=== PATIENT | female | born 1965 | race Caucasian/White ===

== ENCOUNTER 2017-08-23 08:56 | Day surgery (SDC) | payer MEDICARE, SELFPAY ==
[~2017-08-23 08:56] MED LIST: ADAL40PEN INJ; ALPR1 PO; ASPI325 PO; ATOR20 PO; CLOP75 PO; CONEST1.25; CYCL10; CYCL10 PO; EMBREL INJ; FAMO20 PO; FAMO40 PO; FOLI1 PO; FURO20 PO; HYDACE10B PO; HYDACE5 PO; HYDR1TAB94 PO; ISON300 PO; LEUC5 PO; LISI5 PO; LOSA50 PO; METTREX2.5 PO; Omeprazole20 M1 PO; POTCHL10ER PO; PRED5 PO; SULTRIDS PO; TRAZ50; TREXIMET
[2017-11-15] MEDS ORDERED: BENZ100A PO (12:45)
[2017-11-15] MEDS ORDERED: POTCHL20ER PO (12:45)
[2017-11-15] MEDS ORDERED: GABA800 PO (12:45)
[2017-11-15] MEDS ORDERED: PRED20 PO (12:45)
[2017-11-15] MEDS ORDERED: SACC250C PO (12:46)
[2017-11-15] MEDS ORDERED: OXYC5 PO (12:46)
[2017-11-15] MEDS ORDERED: ALBU90OI INH (12:47)
[2017-11-15] MEDS ORDERED: Augmentin 875-1 EACH PO (12:47)
[2018-04-30] MEDS ORDERED: METCAR500 PO (03:50)
[2018-05-01] MEDS ORDERED: Norco 10-325 T1 EACH PO (18:34)
[2018-05-01] MEDS ORDERED: METOPROLOL ER-1 EAC2 PO (19:07)
[2018-05-01] MEDS ORDERED: PRED5 PO (19:09)
[2018-05-01] MEDS ORDERED: Remicade100 MG IV (19:10)
[2018-05-01] MEDS ORDERED: CLON1 PO (19:10)
[2018-05-01] MEDS ORDERED: SERT100 PO (19:11)
== END 2017-08-23 22:53 | disposition home or self-care (01) ==
LOC: MHTC NI 08:56 → ORSCMMR 08:56 → MHTC 08:56 → ORSCMMR 08:57 → ORD 09:30 → CT 10:00 → MHTC NI 22:53 → ORD 22:53 → ORSCMMR 22:53
DX: R07.9 Chest pain, unspecified (principal); I25.10 Atherosclerotic heart disease of native coronary artery without angina pectoris; I25.9 Chronic ischemic heart disease, unspecified; E78.5 Hyperlipidemia, unspecified; K21.9 Gastro-esophageal reflux disease without esophagitis; I10 Essential (primary) hypertension; F17.210 Nicotine dependence, cigarettes, uncomplicated; Z79.899 Other long term (current) drug therapy; Z79.82 Long term (current) use of aspirin; Z79.01 Long term (current) use of anticoagulants; Z95.5 Presence of coronary angioplasty implant and graft; Z88.5 Allergy status to narcotic agent; Z88.1 Allergy status to other antibiotic agents; Z91.040 Latex allergy status; Z95.828 Presence of other vascular implants and grafts
CPT/HCPCS: 75574; Q9967

== ENCOUNTER 2017-09-27 01:03 | Day surgery (SDC) | payer MEDICARE, SELFPAY ==
[2017-09-27] MEDS ORDERED: Carvedilol12.5 MG PO (09:45)
[2017-11-15] MEDS ORDERED: BENZ100A PO (12:45)
[2017-11-15] MEDS ORDERED: PRED20 PO (12:45)
[2017-11-15] MEDS ORDERED: GABA800 PO (12:45)
[2017-11-15] MEDS ORDERED: POTCHL20ER PO (12:45)
[2017-11-15] MEDS ORDERED: OXYC5 PO (12:46)
[2017-11-15] MEDS ORDERED: SACC250C PO (12:46)
[2017-11-15] MEDS ORDERED: ALBU90OI INH (12:47)
[2017-11-15] MEDS ORDERED: Augmentin 875-1 EACH PO (12:47)
[2018-04-30] MEDS ORDERED: METCAR500 PO (03:50)
[2018-05-01] MEDS ORDERED: Norco 10-325 T1 EACH PO (18:34)
[2018-05-01] MEDS ORDERED: METOPROLOL ER-1 EAC2 PO (19:07)
[2018-05-01] MEDS ORDERED: PRED5 PO (19:09)
[2018-05-01] MEDS ORDERED: CLON1 PO (19:10)
[2018-05-01] MEDS ORDERED: Remicade100 MG IV (19:10)
[2018-05-01] MEDS ORDERED: SERT100 PO (19:11)
== END 2017-09-27 12:10 | disposition home or self-care (01) ==
LOC: ATC 01:03
DX: L40.50 Arthropathic psoriasis, unspecified (principal); Z88.5 Allergy status to narcotic agent
CPT/HCPCS: 96413; 96415; J7050; Q5102-ZB

== ENCOUNTER 2017-12-25 10:28 | Day surgery (SDC) | payer MEDICARE ==
[~2017-12-25 10:28] MED LIST changes: +ALBU90OI INH; +Augmentin 875-1 EACH PO; +BENZ100A PO; +Carvedilol12.5 MG PO; +GABA600 PO; +OXYC5 PO; +POTCHL20ER PO; +PRED20 PO; +SACC250C PO
== END 2017-12-25 16:40 | disposition home or self-care (01) ==
LOC: ATC 10:28
DX: L40.50 Arthropathic psoriasis, unspecified (principal); I10 Essential (primary) hypertension
CPT/HCPCS: 96413; 96415; J1745; J7050

== ENCOUNTER 2018-03-21 09:10 | Day surgery (SDC) | payer MEDICARE, OTHER | END 2018-03-21 17:06 | disposition home or self-care (01) | LOC: ATC 09:10 | DX: L40.50 Arthropathic psoriasis, unspecified (principal); M79.7 Fibromyalgia | CPT/HCPCS: J1642; J1745; J7050 ==

== ENCOUNTER 2018-05-08 00:22 | Day surgery (SDC) | payer MEDICARE, SELFPAY ==
[~2018-05-08 00:22] MED LIST changes: +CLON1 PO; -GABA600 PO; +GABA800 PO; +METCAR500 PO; +METOPROLOL ER-1 EAC2 PO; +Norco 10-325 T1 EACH PO; +Remicade100 MG IV; +SERT100 PO
[2018-05-08] MEDS ORDERED: IRON 100 PLUS1 EACH PO (15:17)
[2018-05-08] MEDS ORDERED: ASCO500 PO (15:18)
== END 2018-05-08 16:47 | disposition home or self-care (01) ==
LOC: ATC 00:22
DX: L40.50 Arthropathic psoriasis, unspecified (principal); M79.7 Fibromyalgia
CPT/HCPCS: 36593; 96413; 96415; J1642; J1745; J2997; J7050

== ENCOUNTER 2018-08-01 02:38 | Day surgery (SDC) | payer MEDICARE, SELFPAY ==
[~2018-08-01 02:38] MED LIST changes: +ASCO500 PO; +IRON 100 PLUS1 EACH PO
[2018-09-11] MEDS ORDERED: ATOR20 PO (14:14)
[2018-09-11] MEDS ORDERED: Coreg12.5 MG PO (14:15)
[2018-09-11] MEDS ORDERED: ASPI325EC PO (14:15)
[2018-09-11] MEDS ORDERED: LOSA50 PO (14:15)
[2018-09-11] MEDS ORDERED: Furosemide20 MG PO (14:15)
[2018-09-11] MEDS ORDERED: CLOP75 PO (14:15)
[2018-09-11] MEDS ORDERED: NITR.4SL SL (14:16)
[2018-09-11] MEDS ORDERED: FAMO40 PO (14:16)
[2018-09-11] MEDS ORDERED: POTA10T PO (14:16)
[2018-09-11] MEDS ORDERED: FOLI1 PO (14:17)
[2018-09-11] MEDS ORDERED: METTREX2.5 (14:17)
[2018-09-11] MEDS ORDERED: Remicade100 MG (14:17)
[2018-09-11] MEDS ORDERED: OMEPRAZOLE MAGN20 MG PO (14:17)
[2018-09-11] MEDS ORDERED: Norco 10-325 T1 EACH PO (14:18)
[2018-09-11] MEDS ORDERED: LEUC5 PO (14:18)
[2018-09-11] MEDS ORDERED: PRED5 PO (14:19)
[2018-09-11] MEDS ORDERED: PROM25 PO (14:19)
== END 2018-08-01 16:16 | disposition home or self-care (01) ==
LOC: ATC 02:38
DX: L40.50 Arthropathic psoriasis, unspecified (principal); Z88.5 Allergy status to narcotic agent
CPT/HCPCS: 96413; 96415; J1642; J1745; J7050

== ENCOUNTER 2018-08-14 06:59 | Emergency (ER) | payer MEDICARE, OTHER ==
[~2018-08-14] VITALS: Ht 160 cm; Wt 75.8 kg
[2018-08-14] MEDS ORDERED: PROM25 PO (07:20)
[2018-08-14 08:32] LABS: BASOPHILS ABSOLUTE AUTO 0.07 K/mm3 (0.00-0.23); BASOPHILS PERCENT AUTO 1 % (0-2); EOSINOPHILS ABSOLUTE AUTO 1.36 K/mm3 (0.00-0.68); EOSINOPHILS PERCENT AUTO 13 % (0-6); Hematocrit 37.8 % (33.0-51.0); Hemoglobin 12.4 g/dL (11.5-16.0); IMMATURE GRAN ABSOLUTE AUTO 0.03 K/mm3 (0.00-0.10); IMMATURE GRAN PERCENT AUTO 0 % (0-1); LYMPHOCYTES ABSOLUTE AUTO 2.38 K/mm3 (0.84-5.20); LYMPHOCYTES PERCENT AUTO 22 % (21-46); MONOCYTES ABSOLUTE AUTO 0.43 K/mm3 (0.16-1.47); MONOCYTES PERCENT AUTO 4 % (4-13); Mean Corpuscular HGB 30.8 pg (26.0-34.0); Mean Corpuscular HGB Conc 32.8 g/dL (31.5-36.5); Mean Corpuscular Volume 94 fL (80-100); Mean Platelet Volume 10.6 fL (9.1-12.4); NEUTROPHILS ABSOLUTE AUTO 6.64 K/mm3 (1.96-9.15); NEUTROPHILS PERCENT AUTO 61 % (41-73); Platelet Count 215 K/mm3 (150-400); RDW Coefficient Variation 15.8 % (11.7-14.2); RDW Standard Deviation 53.7 fL (35.1-46.3); Red Blood Cell Count 4.03 M/mm3 (3.80-5.20); White Blood Cell Count 10.91 K/mm3 (4.00-11.30)
[2018-08-14 08:49] LABS: Alanine Aminotransfer (ALT/SGP 16 U/L (12-78); Albumin, Blood 3.7 g/dL (3.4-5.0); Albumin/Globulin Ratio 1.2 (0.8-1.8); Alk Phos 83 U/L (50-136); Anion Gap 8 mmol/L (6-16); Aspartate Aminotrans (AST/SGOT 15 U/L (12-37); Bilirubin, Total 0.4 mg/dL (0.1-1.0); Blood Urea Nitrogen 14 mg/dL (8-24); Bun/Creatinine Ratio 19.6 (12.0-20.0); CO2, Blood 30 mmol/L (21-32); Calcium, Blood 8.6 mg/dL (8.5-10.1); Chloride, Blood 105 mmol/L (98-108); Creatinine, Blood 0.72 mg/dL (0.40-1.00); Globulin, Blood 3.2 g/dL (2.2-4.0); Glomerular Filtration Rate >60 (60-); Glucose, Blood 88 mg/dL (70-99); Sodium, Blood 143 mmol/L (136-145); Total Protein, Blood 6.9 g/dL (6.4-8.2)
[2018-09-11] MEDS ORDERED: ATOR20 PO (14:14)
[2018-09-11] MEDS ORDERED: Furosemide20 MG PO (14:15)
[2018-09-11] MEDS ORDERED: LOSA50 PO (14:15)
[2018-09-11] MEDS ORDERED: CLOP75 PO (14:15)
[2018-09-11] MEDS ORDERED: Coreg12.5 MG PO (14:15)
[2018-09-11] MEDS ORDERED: ASPI325EC PO (14:15)
[2018-09-11] MEDS ORDERED: FAMO40 PO (14:16)
[2018-09-11] MEDS ORDERED: NITR.4SL SL (14:16)
[2018-09-11] MEDS ORDERED: POTA10T PO (14:16)
[2018-09-11] MEDS ORDERED: METTREX2.5 (14:17)
[2018-09-11] MEDS ORDERED: FOLI1 PO (14:17)
[2018-09-11] MEDS ORDERED: OMEPRAZOLE MAGN20 MG PO (14:17)
[2018-09-11] MEDS ORDERED: Remicade100 MG (14:17)
[2018-09-11] MEDS ORDERED: LEUC5 PO (14:18)
[2018-09-11] MEDS ORDERED: Norco 10-325 T1 EACH PO (14:18)
[2018-09-11] MEDS ORDERED: PRED5 PO (14:19)
[2018-09-11] MEDS ORDERED: PROM25 PO (14:19)
== END 2018-08-14 10:23 | disposition home or self-care (01) ==
LOC: ER 06:59
PROVIDERS: Internal Medicine
DX: K59.00 Constipation, unspecified (principal); Z88.1 Allergy status to other antibiotic agents; Z88.8 Allergy status to other drugs, medicaments and biological substances; Z91.048 Other nonmedicinal substance allergy status; Z88.5 Allergy status to narcotic agent; Z91.040 Latex allergy status; Z79.899 Other long term (current) drug therapy; Z79.82 Long term (current) use of aspirin; Z79.52 Long term (current) use of systemic steroids; I10 Essential (primary) hypertension; E78.5 Hyperlipidemia, unspecified; F17.210 Nicotine dependence, cigarettes, uncomplicated
CPT/HCPCS: 36415; 74022; 80053; 83690; 84145; 85025; 96374; 96375; 99284-25; C9113; J2405; J3010

== ENCOUNTER 2018-09-12 00:18 | Day surgery (SDC) | payer MEDICARE, OTHER ==
[~2018-09-12 00:18] MED LIST changes: +ASPI325EC PO; +Coreg12.5 MG PO; +Furosemide20 MG PO; +METTREX2.5; +NITR.4SL SL; +OMEPRAZOLE MAGN20 MG PO; +POTA10T PO; +PROM25 PO; +Remicade100 MG
== END 2018-09-12 16:29 | disposition home or self-care (01) ==
LOC: ATC 00:18
DX: L40.50 Arthropathic psoriasis, unspecified (principal); M79.7 Fibromyalgia; Z79.899 Other long term (current) drug therapy; Z79.02 Long term (current) use of antithrombotics/antiplatelets; Z79.82 Long term (current) use of aspirin; I25.10 Atherosclerotic heart disease of native coronary artery without angina pectoris; Z95.5 Presence of coronary angioplasty implant and graft; I10 Essential (primary) hypertension
CPT/HCPCS: 96413; 96415; J1642; J1745; J7050

== ENCOUNTER 2018-09-23 13:01 | Day surgery (SDC) | payer MEDICARE, OTHER ==
[~2018-09-23] VITALS: Ht 160 cm; Wt 78.4 kg
== END 2018-09-23 15:35 | disposition home or self-care (01) ==
LOC: ORSCSDS 13:01
PROVIDERS: Internal Medicine Gastroenterology
PROC: 0DJ08ZZ Inspection of Upper Intestinal Tract, Via Natural or Artificial Opening Endoscopic (ICD-10-PCS; principal; 2018-09-23 15:00)
DX: D64.9 Anemia, unspecified (principal); K20.9 Esophagitis, unspecified; K29.70 Gastritis, unspecified, without bleeding; R11.2 Nausea with vomiting, unspecified; I10 Essential (primary) hypertension; R10.9 Unspecified abdominal pain; F41.8 Other specified anxiety disorders; E87.6 Hypokalemia; E78.5 Hyperlipidemia, unspecified; G47.33 Obstructive sleep apnea (adult) (pediatric); I25.10 Atherosclerotic heart disease of native coronary artery without angina pectoris; F17.210 Nicotine dependence, cigarettes, uncomplicated; Z79.01 Long term (current) use of anticoagulants; Z79.82 Long term (current) use of aspirin; Z79.899 Other long term (current) drug therapy
CPT/HCPCS: J7120

== ENCOUNTER 2018-11-03 00:09 | Day surgery (SDC) | payer MEDICARE, OTHER ==
[~2018-11-03 00:09] MED LIST changes: +Percocet 5-3251 EACH PO; +Zofran8 MG PO
== END 2018-11-03 16:20 | disposition home or self-care (01) ==
LOC: ATC 00:09
DX: L40.50 Arthropathic psoriasis, unspecified (principal); I10 Essential (primary) hypertension
CPT/HCPCS: J1642; J1745; J7050

== ENCOUNTER 2018-12-15 00:06 | Day surgery (SDC) | payer MEDICARE, OTHER | END 2018-12-15 23:03 | disposition home or self-care (01) | LOC: ATC 00:06 | DX: L40.50 Arthropathic psoriasis, unspecified (principal); I10 Essential (primary) hypertension | CPT/HCPCS: J1642; J1745; J7050 ==

== ENCOUNTER 2018-12-31 06:38 | Day surgery (SDC) | payer MEDICARE, OTHER ==
[~2018-12-31] VITALS: Ht 160 cm; Wt 75.2 kg
--- NOTE | 2018-12-31 07:24 | NUR ---
12/31/18 0724 Adilene Galloway ACCESSED THE PATIENTS MEDIPORT PREOPERATIVLY AT 0700. WOULD NOT FLOW TO GRAVITY FEED. Isabel MENA PLACED IV RIGHT HAND. AT 0718 DC MEDIPORT ACCESS FLUSHED WITH 10 ML NS AND 5 ML OF HEPARIN 100U ML.
== END 2018-12-31 08:45 | disposition home or self-care (01) ==
LOC: ORSCSDS 06:38
PROVIDERS: Internal Medicine Gastroenterology
PROC: 0DB48ZX Excision of Esophagogastric Junction, Via Natural or Artificial Opening Endoscopic, Diagnostic (ICD-10-PCS; principal; 2018-12-31 08:00)
PROC: 0DB68ZX Excision of Stomach, Via Natural or Artificial Opening Endoscopic, Diagnostic (ICD-10-PCS; principal; 2018-12-31 08:00)
DX: K21.0 Gastro-esophageal reflux disease with esophagitis (principal); K29.60 Other gastritis without bleeding; R11.2 Nausea with vomiting, unspecified; K29.80 Duodenitis without bleeding; F17.210 Nicotine dependence, cigarettes, uncomplicated; I25.10 Atherosclerotic heart disease of native coronary artery without angina pectoris; I10 Essential (primary) hypertension; I25.2 Old myocardial infarction; G47.33 Obstructive sleep apnea (adult) (pediatric); Z79.899 Other long term (current) drug therapy; Z79.82 Long term (current) use of aspirin
CPT/HCPCS: 88305; 88342; J0461; J1642; J2405; J2550; J2704; J7120

== ENCOUNTER 2019-01-13 11:32 | Emergency (ER) | payer MEDICARE, OTHER ==
[~2019-01-13] VITALS: Ht 160 cm; Wt 74.8 kg
[2019-01-13 12:41] LABS: Alanine Aminotransfer (ALT/SGP 17 U/L (12-78); Albumin, Blood 3.5 g/dL (3.4-5.0); Alk Phos 84 U/L (50-136); Anion Gap 5 mmol/L (6-16); Aspartate Aminotrans (AST/SGOT 17 U/L (12-37); Bilirubin, Total 0.4 mg/dL (0.1-1.0); Blood Urea Nitrogen 19 mg/dL (8-24); Bun/Creatinine Ratio 18.4 (12.0-20.0); CO2, Blood 27 mmol/L (21-32); Chloride, Blood 109 mmol/L (98-108); Creatinine, Blood 1.03 mg/dL (0.40-1.00); Globulin, Blood 3.6 g/dL (2.2-4.0); Glomerular Filtration Rate 60 (60-); Glucose, Blood 94 mg/dL (70-99); Potassium, Blood 4.7 mmol/L (3.5-5.5); Sodium, Blood 141 mmol/L (136-145); Total Protein, Blood 7.1 g/dL (6.4-8.2); Troponin I <0.015 ng/mL (0.000-0.040)
[2019-01-13 13:09] LABS: BASOPHILS ABSOLUTE AUTO 0.09 K/mm3 (0.00-0.23); BASOPHILS PERCENT AUTO 1 % (0-2); EOSINOPHILS ABSOLUTE AUTO 0.56 K/mm3 (0.00-0.68); EOSINOPHILS PERCENT AUTO 5 % (0-6); Hematocrit 37.8 % (33.0-51.0); Hemoglobin 12.2 g/dL (11.5-16.0); IMMATURE GRAN ABSOLUTE AUTO 0.06 K/mm3 (0.00-0.10); IMMATURE GRAN PERCENT AUTO 1 % (0-1); LYMPHOCYTES ABSOLUTE AUTO 3.59 K/mm3 (0.84-5.20); LYMPHOCYTES PERCENT AUTO 29 % (21-46); MONOCYTES ABSOLUTE AUTO 0.41 K/mm3 (0.16-1.47); MONOCYTES PERCENT AUTO 3 % (4-13); Mean Corpuscular HGB 30.7 pg (26.0-34.0); Mean Corpuscular HGB Conc 32.3 g/dL (31.5-36.5); Mean Corpuscular Volume 95 fL (80-100); Mean Platelet Volume 10.3 fL (9.1-12.4); NEUTROPHILS ABSOLUTE AUTO 7.59 K/mm3 (1.96-9.15); NEUTROPHILS PERCENT AUTO 62 % (41-73); Platelet Count 220 K/mm3 (150-400); RDW Coefficient Variation 15.9 % (11.7-14.2); RDW Standard Deviation 55.8 fL (35.1-46.3); Red Blood Cell Count 3.97 M/mm3 (3.80-5.20)
== END 2019-01-13 13:28 | disposition home or self-care (01) ==
LOC: ER 11:32
PROVIDERS: Emergency Medicine; Physician Assistant
DX: I82.611 Acute embolism and thrombosis of superficial veins of right upper extremity (principal); E78.5 Hyperlipidemia, unspecified; I10 Essential (primary) hypertension; K21.9 Gastro-esophageal reflux disease without esophagitis; M19.90 Unspecified osteoarthritis, unspecified site; M79.7 Fibromyalgia; Z87.891 Personal history of nicotine dependence; Z88.5 Allergy status to narcotic agent; Z91.040 Latex allergy status; Z88.8 Allergy status to other drugs, medicaments and biological substances; Z91.09 Other allergy status, other than to drugs and biological substances; Z79.82 Long term (current) use of aspirin; Z79.899 Other long term (current) drug therapy
CPT/HCPCS: 36415; 71046; 80053; 84484; 85025; 93005; 93010; 93971; 96374; 99284-25; J1885

== ENCOUNTER 2019-02-06 01:06 | Day surgery (SDC) | payer MEDICARE, OTHER | END 2019-02-06 12:17 | disposition home or self-care (01) | LOC: ATC 01:06 | DX: L40.50 Arthropathic psoriasis, unspecified (principal); I10 Essential (primary) hypertension; Z88.5 Allergy status to narcotic agent; Z88.1 Allergy status to other antibiotic agents | CPT/HCPCS: 96413; 96415; J1642; J1745; J7050 ==

== ENCOUNTER 2019-03-05 13:39 | Day surgery (SDC) | payer MEDICARE, OTHER ==
[~2019-03-05] VITALS: Ht 160 cm; Wt 72.8 kg
--- NOTE | 2019-03-05 15:15 | NUR ---
03/05/19 1514 NileshNovember LATE ENTRY: DOCTOR WAS NOTIFIED OF BLOOD THINNERS LAST DATE TAKEN AT 1450. NO NEW ORDERS.
== END 2019-03-05 18:12 | disposition home or self-care (01) ==
LOC: ORSCSDS 13:39
PROVIDERS: Podiatrist
PROC: 0L8V0ZZ Division of Right Foot Tendon, Open Approach (ICD-10-PCS; principal; 2019-03-05 15:15)
PROC: 0QBQ0ZZ Excision of Right Toe Phalanx, Open Approach (ICD-10-PCS; principal; 2019-03-05 15:15)
DX: M20.41 Other hammer toe(s) (acquired), right foot (principal); M89.9 Disorder of bone, unspecified; I10 Essential (primary) hypertension; I25.10 Atherosclerotic heart disease of native coronary artery without angina pectoris; I25.2 Old myocardial infarction; G62.9 Polyneuropathy, unspecified; Z79.899 Other long term (current) drug therapy; Z79.82 Long term (current) use of aspirin; F17.210 Nicotine dependence, cigarettes, uncomplicated
CPT/HCPCS: J0690; J1100; J2001; J2250; J2370; J2405; J2704; J3010; J7120

== ENCOUNTER 2019-03-25 00:20 | Day surgery (SDC) | payer MEDICARE, OTHER | END 2019-03-25 10:43 | disposition home or self-care (01) | LOC: ATC 00:20 | DX: L40.50 Arthropathic psoriasis, unspecified (principal); I10 Essential (primary) hypertension; Z79.899 Other long term (current) drug therapy | CPT/HCPCS: 96413; 96415; J1642; J1745; J7050 ==

== ENCOUNTER 2019-05-06 00:03 | Day surgery (SDC) | payer MEDICARE, OTHER | END 2019-05-06 11:16 | disposition home or self-care (01) | LOC: ATC 00:03 | DX: L40.50 Arthropathic psoriasis, unspecified (principal); Z88.5 Allergy status to narcotic agent; Z88.1 Allergy status to other antibiotic agents | CPT/HCPCS: 96413; 96415; J1642; J1745; J7050 ==

== ENCOUNTER 2019-06-17 16:30 | Emergency (ER) | payer MEDICARE, OTHER ==
[~2019-06-17] VITALS: Ht 160 cm; Wt 80.7 kg
== END 2019-06-17 18:05 | disposition home or self-care (01) ==
LOC: ER 16:30
DX: S76.312A Strain of muscle, fascia and tendon of the posterior muscle group at thigh level, left thigh, initial encounter (principal); I10 Essential (primary) hypertension; F17.210 Nicotine dependence, cigarettes, uncomplicated; Z86.718 Personal history of other venous thrombosis and embolism; Z85.841 Personal history of malignant neoplasm of brain; Z88.1 Allergy status to other antibiotic agents; Z88.5 Allergy status to narcotic agent; Z91.048 Other nonmedicinal substance allergy status; Z91.040 Latex allergy status; Z88.8 Allergy status to other drugs, medicaments and biological substances; Z79.899 Other long term (current) drug therapy; Z79.82 Long term (current) use of aspirin; Z79.02 Long term (current) use of antithrombotics/antiplatelets; Z79.52 Long term (current) use of systemic steroids; X58.XXXA Exposure to other specified factors, initial encounter
CPT/HCPCS: 93971; 99283-25

== ENCOUNTER 2019-07-17 01:22 | Inpatient (IN) | payer MEDICARE, OTHER ==
[~2019-07-17] VITALS: Ht 160 cm; Wt 81.7 kg
[~2019-07-17 01:22] MED LIST changes: -ASPI325EC PO; +Aspir 8181 MG PO; -METTREX2.5; -Remicade100 MG
[2019-07-17 02:27] LABS: Influenza A Negative (NEGATIVE); Influenza B Negative (NEGATIVE)
[2019-07-17 02:32] LABS: BASOPHILS ABSOLUTE AUTO 0.02 K/mm3 (0.00-0.23); BASOPHILS PERCENT AUTO 0 % (0-2); EOSINOPHILS PERCENT AUTO 0 % (0-6); Hematocrit 38.5 % (33.0-51.0); IMMATURE GRAN ABSOLUTE AUTO 0.06 K/mm3 (0.00-0.10); IMMATURE GRAN PERCENT AUTO 0 % (0-1); LYMPHOCYTES PERCENT AUTO 11 % (21-46); MONOCYTES ABSOLUTE AUTO 0.49 K/mm3 (0.16-1.47); MONOCYTES PERCENT AUTO 4 % (4-13); Mean Corpuscular HGB Conc 33.8 g/dL (31.5-36.5); Mean Corpuscular Volume 98 fL (80-100); Mean Platelet Volume 10.2 fL (9.1-12.4); NEUTROPHILS ABSOLUTE AUTO 11.45 K/mm3 (1.96-9.15); NEUTROPHILS PERCENT AUTO 85 % (41-73); Platelet Count 210 K/mm3 (150-400); RDW Coefficient Variation 12.9 % (11.7-14.2); RDW Standard Deviation 46.2 fL (35.1-46.3); Red Blood Cell Count 3.94 M/mm3 (3.80-5.20); White Blood Cell Count 13.52 K/mm3 (4.00-11.30)
[2019-07-17 02:49] LABS: Alanine Aminotransfer (ALT/SGP 22 U/L (12-78); Albumin, Blood 3.8 g/dL (3.4-5.0); Albumin/Globulin Ratio 1.2 (0.8-1.8); Alk Phos 70 U/L (50-136); Anion Gap 5 mmol/L (6-16); Aspartate Aminotrans (AST/SGOT 13 U/L (12-37); Bilirubin, Total 0.5 mg/dL (0.1-1.0); Blood Urea Nitrogen 18 mg/dL (8-24); Bun/Creatinine Ratio 25.1 (12.0-20.0); CO2, Blood 25 mmol/L (21-32); Calcium, Blood 8.7 mg/dL (8.5-10.1); Chloride, Blood 110 mmol/L (98-108); Creatinine, Blood 0.72 mg/dL (0.40-1.00); Globulin, Blood 3.3 g/dL (2.2-4.0); Glomerular Filtration Rate >60 (60-); Glucose, Blood 113 mg/dL (70-99); Potassium, Blood 4.1 mmol/L (3.5-5.5); Sodium, Blood 140 mmol/L (136-145); Total Protein, Blood 7.1 g/dL (6.4-8.2)
[2019-07-17 06:51] LABS: Hemoglobin 11.9 g/dL (11.5-16.0); Mean Corpuscular HGB 32.3 pg (26.0-34.0); Mean Corpuscular HGB Conc 33.1 g/dL (31.5-36.5); Mean Corpuscular Volume 98 fL (80-100); Mean Platelet Volume 10.4 fL (9.1-12.4); Platelet Count 184 K/mm3 (150-400); RDW Standard Deviation 46.4 fL (35.1-46.3); Red Blood Cell Count 3.68 M/mm3 (3.80-5.20); White Blood Cell Count 21.19 K/mm3 (4.00-11.30)
--- NOTE | 2019-07-17 06:52 | NUR ---
ADMISSION NOTE PT ARRIVED TO UNIT VIA W/C, AMBULATED INDEPENDENTLY TO BED. O2 SATS 96% ON RA. PT DENIES SOB AT THIS TIME. IV ROCEPHIN STARTED PER ORDERS. RESP PANEL SENT TO LAB AND PENDING. IV SOLUMEDROL ADMINISTERED. MEDIPORT TO L CHEST WALL ACCESSED.
[2019-07-17 07:09] LABS: Alanine Aminotransfer (ALT/SGP 18 U/L (12-78); Albumin, Blood 3.4 g/dL (3.4-5.0); Alk Phos 69 U/L (50-136); Anion Gap 9 mmol/L (6-16); Aspartate Aminotrans (AST/SGOT 12 U/L (12-37); Bilirubin, Total 0.5 mg/dL (0.1-1.0); Blood Urea Nitrogen 17 mg/dL (8-24); Bun/Creatinine Ratio 23.7 (12.0-20.0); CO2, Blood 21 mmol/L (21-32); Calcium, Blood 8.1 mg/dL (8.5-10.1); Chloride, Blood 109 mmol/L (98-108); Creatinine, Blood 0.72 mg/dL (0.40-1.00); Globulin, Blood 3.4 g/dL (2.2-4.0); Glomerular Filtration Rate >60 (60-); Glucose, Blood 167 mg/dL (70-99); Potassium, Blood 3.7 mmol/L (3.5-5.5); Sodium, Blood 139 mmol/L (136-145); Total Protein, Blood 6.8 g/dL (6.4-8.2)
[2019-07-17 10:24] LABS: Adenovirus Not Detected (NOT DETECT); Bordetella pertussis Not Detected (NOT DETECT); Chlamydophila pneumoniae Not Detected (NOT DETECT); Coronavirus 229E Not Detected (NOT DETECT); Coronavirus HKU1 Not Detected (NOT DETECT); Coronavirus NL63 Not Detected (NOT DETECT); Coronavirus OC43 Not Detected (NOT DETECT); Human Metapneumovirus Detected (NOT DETECT); Human Rhinovirus/Enterovirus Not Detected (NOT DETECT); Influenza A Not Detected (NOT DETECT); Influenza A/2009-H1 Not Detected (NOT DETECT); Influenza A/H1 Not Detected (NOT DETECT); Influenza A/H3 Not Detected (NOT DETECT); Influenza B Not Detected (NOT DETECT); Mycoplasma pneumoniae Not Detected (NOT DETECT); Parainfluenza Virus 1 Not Detected (NOT DETECT); Parainfluenza Virus 2 Not Detected (NOT DETECT); Parainfluenza Virus 3 Not Detected (NOT DETECT); Parainfluenza Virus 4 Not Detected (NOT DETECT); Respiratory Syncytial Virus Not Detected (NOT DETECT)
[2019-07-17 10:45] LABS: Source, Urine Clean Catch
[2019-07-17 11:16] LABS: Bilirubin, Urine Neg (Neg); Blood, Urine 4+ (Neg); Glucose Qualitative, Urine 1+ (Neg); Ketones, Urine Neg (Neg); Leukocyte Esterase, Urine Neg (Neg); Nitrite, Urine Neg (Neg); Protein, Urine Neg (Neg); Urobilinogen, Urine NORM (Normal)
[2019-07-17 11:56] LABS: Appearance, Urine Clear (Clear); Color, Urine Yellow (P-Yellow)
[2019-07-17 11:58] LABS: White Blood Cells, Urine 0-2 /hpf (0-5)
[2019-07-17 11:59] LABS: Bacteria Rare /hpf; Squamous Epithelial Cells Rare /hpf (Few)
--- NOTE | 2019-07-17 18:31 | NUR ---
SHE TESTED POSITIVE FOR 1 VIRUS ON THE PANEL. I CHECKED WITH RUTH IN INFECTION CONTROL. AFTER RESEARCHING A LITTLE SHE CONCLUDED THAT PROTOCOL IS TO NOT ISOLATE THE PATIENT FOR THIS. SHE HAS A HARSH NON-PRODUCTIVE COUGH THAT CAUSES HER PAIN BETWEEN HER SHOULDER BLADES AND IN HER ANTERIOR CHEST WALL. SHE HAS RECEIVED FENTANYL X3 WITH GOOD RESULTS.HER FACE HAS BEEN FLUSHED A LOT TODAY. SHE RECEIVES IV STEROID Q6HRS.TELE NSR. VSS.
[2019-07-18 05:21] LABS: BASOPHILS ABSOLUTE AUTO 0.02 K/mm3 (0.00-0.23); BASOPHILS PERCENT AUTO 0 % (0-2); EOSINOPHILS PERCENT AUTO 0 % (0-6); Hematocrit 35.7 % (33.0-51.0); Hemoglobin 11.8 g/dL (11.5-16.0); IMMATURE GRAN ABSOLUTE AUTO 0.25 K/mm3 (0.00-0.10); IMMATURE GRAN PERCENT AUTO 1 % (0-1); LYMPHOCYTES ABSOLUTE AUTO 1.09 K/mm3 (0.84-5.20); LYMPHOCYTES PERCENT AUTO 6 % (21-46); MONOCYTES ABSOLUTE AUTO 0.47 K/mm3 (0.16-1.47); MONOCYTES PERCENT AUTO 3 % (4-13); Mean Corpuscular HGB 32.8 pg (26.0-34.0); Mean Corpuscular HGB Conc 33.1 g/dL (31.5-36.5); Mean Corpuscular Volume 99 fL (80-100); Mean Platelet Volume 10.6 fL (9.1-12.4); NEUTROPHILS ABSOLUTE AUTO 17.09 K/mm3 (1.96-9.15); NEUTROPHILS PERCENT AUTO 90 % (41-73); Platelet Count 184 K/mm3 (150-400); RDW Coefficient Variation 13.2 % (11.7-14.2); RDW Standard Deviation 47.6 fL (35.1-46.3); White Blood Cell Count 18.92 K/mm3 (4.00-11.30)
[2019-07-18 05:42] LABS: Anion Gap 8 mmol/L (6-16); Blood Urea Nitrogen 18 mg/dL (8-24); Bun/Creatinine Ratio 25.1 (12.0-20.0); CO2, Blood 23 mmol/L (21-32); Calcium, Blood 8.6 mg/dL (8.5-10.1); Chloride, Blood 111 mmol/L (98-108); Creatinine, Blood 0.72 mg/dL (0.40-1.00); Glomerular Filtration Rate >60 (60-); Glucose, Blood 131 mg/dL (70-99); Potassium, Blood 3.9 mmol/L (3.5-5.5); Sodium, Blood 142 mmol/L (136-145)
--- NOTE | 2019-07-18 06:16 | NUR ---
SHIFT SUMMARY NO ACUTE CHANGES. PT HAS RECIEVED IV FENTANYL TWICE FOR PLEURITIC TYPE PAIN FROM COUGHING. ROBITUSSIN GIVEN ONCE WITH THERAPEUTIC EFFECT. SOLU MEDROL Q6H PER EMAR ORDERS. RESP E/U ON RA, INDEPENDENT IN RM. TELE IN PLACE; NSR @ 60 C PACs. UNABLE TO COLLECT SPUTUM SAMPLE D/T NONPRODUCTIVE COUGH. L CHEST WALL MEDIPORT ACCESSED AND PATENT. WILL CONT TO MONITOR AND PROVIDE CARE UNTIL PRESUMED BY ONCOMING RN.
--- NOTE | 2019-07-18 18:23 | NUR ---
PT SAYS RESP STATUS IS BETTER TODAY, DRY NPC AND WHEEZE T/O REMAIN. IV ABX DISCONTINUED TODAY. SEE DR JOAQUIN'S NOTE. DRY COUGH CAUSING BACK, SIDE AND RIB PAIN. MEDICATED WITH IV FENTANYL X2 AND NORCO 10/325 X1 PER EMAR. WILL CONTINUE TO MONITOR AND REPORT TO ONCOMING RN
[2019-07-19 05:04] LABS: BASOPHILS ABSOLUTE AUTO 0.01 K/mm3 (0.00-0.23); BASOPHILS PERCENT AUTO 0 % (0-2); EOSINOPHILS PERCENT AUTO 0 % (0-6); Hematocrit 36.8 % (33.0-51.0); Hemoglobin 11.8 g/dL (11.5-16.0); IMMATURE GRAN ABSOLUTE AUTO 0.23 K/mm3 (0.00-0.10); IMMATURE GRAN PERCENT AUTO 2 % (0-1); LYMPHOCYTES ABSOLUTE AUTO 0.99 K/mm3 (0.84-5.20); LYMPHOCYTES PERCENT AUTO 6 % (21-46); MONOCYTES ABSOLUTE AUTO 0.45 K/mm3 (0.16-1.47); MONOCYTES PERCENT AUTO 3 % (4-13); Mean Corpuscular HGB 31.4 pg (26.0-34.0); Mean Corpuscular HGB Conc 32.1 g/dL (31.5-36.5); Mean Corpuscular Volume 98 fL (80-100); Mean Platelet Volume 10.9 fL (9.1-12.4); NEUTROPHILS ABSOLUTE AUTO 14.05 K/mm3 (1.96-9.15); NEUTROPHILS PERCENT AUTO 89 % (41-73); Platelet Count 183 K/mm3 (150-400); RDW Standard Deviation 46.7 fL (35.1-46.3); Red Blood Cell Count 3.76 M/mm3 (3.80-5.20); White Blood Cell Count 15.73 K/mm3 (4.00-11.30)
[2019-07-19 05:24] LABS: Anion Gap 7 mmol/L (6-16); Blood Urea Nitrogen 19 mg/dL (8-24); Bun/Creatinine Ratio 24.6 (12.0-20.0); CO2, Blood 27 mmol/L (21-32); Calcium, Blood 8.5 mg/dL (8.5-10.1); Chloride, Blood 107 mmol/L (98-108); Creatinine, Blood 0.77 mg/dL (0.40-1.00); Glomerular Filtration Rate >60 (60-); Glucose, Blood 113 mg/dL (70-99); Potassium, Blood 4.1 mmol/L (3.5-5.5); Sodium, Blood 141 mmol/L (136-145)
--- NOTE | 2019-07-19 06:40 | NUR ---
SHIFT SUMARY: PT SLEPT INTERMITTENTLY THIS NOC SHIFT. PT COMPLAINED OF PAIN RIBCAGE SECOND TO COUGH, SHE REQUESTED THE FENTANYL 50 MCG IVP AND RECEIVED IT X1 DOSE AT BEDTIME. THIS MORNING NURSE ENCOURAGED HER TO TRY THE NORCO INSTEAD. RECHECK SHOWED PAIN LEVEL WAS IMPROVED.
[2019-07-19] MEDS ORDERED: ALBU90OI INH (14:34)
[2019-07-19] MEDS ORDERED: ROBITUSSIN NIG237 ML PO (14:36)
--- NOTE | 2019-07-19 15:23 | NUR ---
DISCHARGE DISCHARGE INSTRUCTIONS, FOLLOW UP APPOINTMENTS AND MEDICATION LIST REVIEWED WITH PT. QUESTIONS/CONCERNS ANSWERED. PT VERBALLY INDICATED UNDERSTANDING OF ALL INSTRUCTIONS RECEIVED. PT RECEIVED 40MG IV SOLUMEDROL BEFORE DISCHARGE, TO START DAILY PREDNISONE IN THE AM. SCRIPS FAXED TO [facility] PER PT PREFERENCE. WILL CONTINUE TO MONITOR AND REPORT TO ONCOMING RN
== END 2019-07-19 15:18 | disposition home or self-care (01) | DRG 202 ==
LOC: ER 01:22 → MEDS 05:43
PROVIDERS: Emergency Medicine; Internal Medicine Endocrinology, Diabetes & Metabolism; ADMIT Internal Medicine
DX: J20.8 Acute bronchitis due to other specified organisms (principal); J44.1 Chronic obstructive pulmonary disease with (acute) exacerbation; M06.9 Rheumatoid arthritis, unspecified; M79.7 Fibromyalgia; G40.909 Epilepsy, unspecified, not intractable, without status epilepticus; F17.210 Nicotine dependence, cigarettes, uncomplicated; Z79.82 Long term (current) use of aspirin; I25.10 Atherosclerotic heart disease of native coronary artery without angina pectoris; Z95.5 Presence of coronary angioplasty implant and graft; E66.3 Overweight
CPT/HCPCS: 0099U; 36415; 71046; 80048; 80053; 81001; 83880; 84145; 85025; 85027; 87804; 94640; 94644; 94760; 96361; 96374; 96375; 99285-25; J0456; J0696; J1100; J1642; J1650; J2920; J2930; J3010; J7030; J7050

== ENCOUNTER 2019-07-21 05:17 | Emergency (ER) | payer MEDICARE, OTHER ==
[~2019-07-21] VITALS: Ht 160 cm; Wt 80.3 kg
[~2019-07-21 05:17] MED LIST changes: +ROBITUSSIN NIG237 ML PO
[2019-07-21 07:34] LABS: Influenza A Negative (NEGATIVE); Influenza B Negative (NEGATIVE)
[2019-07-21 07:39] LABS: BASOPHILS ABSOLUTE AUTO 0.01 K/mm3 (0.00-0.23); BASOPHILS PERCENT AUTO 0 % (0-2); EOSINOPHILS ABSOLUTE AUTO 0.05 K/mm3 (0.00-0.68); EOSINOPHILS PERCENT AUTO 0 % (0-6); Hematocrit 37.2 % (33.0-51.0); Hemoglobin 12.7 g/dL (11.5-16.0); IMMATURE GRAN PERCENT AUTO 1 % (0-1); LYMPHOCYTES PERCENT AUTO 30 % (21-46); MONOCYTES ABSOLUTE AUTO 1.52 K/mm3 (0.16-1.47); MONOCYTES PERCENT AUTO 9 % (4-13); Mean Corpuscular HGB 32.6 pg (26.0-34.0); Mean Corpuscular HGB Conc 34.1 g/dL (31.5-36.5); Mean Platelet Volume 10.3 fL (9.1-12.4); NEUTROPHILS ABSOLUTE AUTO 9.59 K/mm3 (1.96-9.15); NEUTROPHILS PERCENT AUTO 59 % (41-73); Platelet Count 190 K/mm3 (150-400); RDW Coefficient Variation 12.3 % (11.7-14.2); White Blood Cell Count 16.17 K/mm3 (4.00-11.30)
[2019-07-21 07:52] LABS: Mean Corpuscular Volume 95 fL (80-100)
[2019-07-21 07:57] LABS: Alanine Aminotransfer (ALT/SGP 21 U/L (12-78); Albumin/Globulin Ratio 0.9 (0.8-1.8); Alk Phos 63 U/L (50-136); Anion Gap 6 mmol/L (6-16); Aspartate Aminotrans (AST/SGOT 17 U/L (12-37); Bilirubin, Total 0.5 mg/dL (0.1-1.0); Blood Urea Nitrogen 22 mg/dL (8-24); Bun/Creatinine Ratio 29.9 (12.0-20.0); CO2, Blood 29 mmol/L (21-32); Calcium, Blood 8.2 mg/dL (8.5-10.1); Chloride, Blood 108 mmol/L (98-108); Creatinine, Blood 0.74 mg/dL (0.40-1.00); Globulin, Blood 3.3 g/dL (2.2-4.0); Glomerular Filtration Rate >60 (60-); Glucose, Blood 64 mg/dL (70-99); Potassium, Blood 3.3 mmol/L (3.5-5.5); Sodium, Blood 143 mmol/L (136-145); Total Protein, Blood 6.3 g/dL (6.4-8.2)
== END 2019-07-21 08:27 | disposition home or self-care (01) ==
LOC: ER 05:17
PROVIDERS: Emergency Medicine
DX: J11.1 Influenza due to unidentified influenza virus with other respiratory manifestations (principal); J44.9 Chronic obstructive pulmonary disease, unspecified; M06.9 Rheumatoid arthritis, unspecified; E78.5 Hyperlipidemia, unspecified; K21.9 Gastro-esophageal reflux disease without esophagitis; I10 Essential (primary) hypertension; M79.7 Fibromyalgia; F17.210 Nicotine dependence, cigarettes, uncomplicated; Z88.5 Allergy status to narcotic agent; Z88.8 Allergy status to other drugs, medicaments and biological substances; Z91.048 Other nonmedicinal substance allergy status; Z91.040 Latex allergy status; Z79.82 Long term (current) use of aspirin; Z79.899 Other long term (current) drug therapy
CPT/HCPCS: 36415; 71045; 80053; 85025; 87804; 94640; 96361; 96374; 99283-25; J1885; J7030

== ENCOUNTER 2019-08-06 10:53 | Inpatient (IN) | payer MEDICARE, OTHER ==
[~2019-08-06] VITALS: Ht 160 cm; Wt 77.4 kg
[2019-08-06 11:43] LABS: Source, Urine Clean Catch
[2019-08-06 11:44] LABS: BASOPHILS ABSOLUTE AUTO 0.06 K/mm3 (0.00-0.23); BASOPHILS PERCENT AUTO 0 % (0-2); EOSINOPHILS ABSOLUTE AUTO 0.15 K/mm3 (0.00-0.68); EOSINOPHILS PERCENT AUTO 1 % (0-6); Hematocrit 42.6 % (33.0-51.0); Hemoglobin 13.9 g/dL (11.5-16.0); IMMATURE GRAN ABSOLUTE AUTO 0.09 K/mm3 (0.00-0.10); IMMATURE GRAN PERCENT AUTO 1 % (0-1); LYMPHOCYTES ABSOLUTE AUTO 1.81 K/mm3 (0.84-5.20); LYMPHOCYTES PERCENT AUTO 11 % (21-46); MONOCYTES ABSOLUTE AUTO 0.25 K/mm3 (0.16-1.47); MONOCYTES PERCENT AUTO 2 % (4-13); Mean Corpuscular HGB 31.5 pg (26.0-34.0); Mean Corpuscular HGB Conc 32.6 g/dL (31.5-36.5); Mean Corpuscular Volume 97 fL (80-100); Mean Platelet Volume 9.5 fL (9.1-12.4); NEUTROPHILS ABSOLUTE AUTO 14.02 K/mm3 (1.96-9.15); NEUTROPHILS PERCENT AUTO 86 % (41-73); Platelet Count 294 K/mm3 (150-400); RDW Coefficient Variation 12.8 % (11.7-14.2); RDW Standard Deviation 46.1 fL (35.1-46.3); Red Blood Cell Count 4.41 M/mm3 (3.80-5.20); White Blood Cell Count 16.38 K/mm3 (4.00-11.30)
[2019-08-06 12:07] LABS: Bilirubin, Urine Neg (Neg); Blood, Urine 5+ (Neg); Glucose Qualitative, Urine Neg (Neg); Ketones, Urine Neg (Neg); Leukocyte Esterase, Urine Neg (Neg); Nitrite, Urine Neg (Neg); Protein, Urine Neg (Neg); Specific Gravity, Urine 1.005 (1.003-1.022); Urobilinogen, Urine NORM (Normal)
[2019-08-06 12:09] LABS: Alanine Aminotransfer (ALT/SGP 40 U/L (12-78); Albumin, Blood 3.4 g/dL (3.4-5.0); Albumin/Globulin Ratio 0.9 (0.8-1.8); Alk Phos 84 U/L (50-136); Anion Gap 6 mmol/L (6-16); Aspartate Aminotrans (AST/SGOT 22 U/L (12-37); Bilirubin, Total 0.7 mg/dL (0.1-1.0); Blood Urea Nitrogen 16 mg/dL (8-24); Bun/Creatinine Ratio 21.2 (12.0-20.0); CO2, Blood 26 mmol/L (21-32); Calcium, Blood 8.8 mg/dL (8.5-10.1); Chloride, Blood 107 mmol/L (98-108); Creatinine, Blood 0.75 mg/dL (0.40-1.00); Globulin, Blood 3.9 g/dL (2.2-4.0); Glomerular Filtration Rate >60 (60-); Glucose, Blood 93 mg/dL (70-99); Sodium, Blood 139 mmol/L (136-145); Total Protein, Blood 7.3 g/dL (6.4-8.2)
[2019-08-06 12:23] LABS: Appearance, Urine Clear (Clear); Color, Urine Pale Yellow (P-Yellow)
[2019-08-06 12:26] LABS: Bacteria Rare /hpf; Squamous Epithelial Cells Rare /hpf (Few); White Blood Cells, Urine 0-2 /hpf (0-5)
[2019-08-06] MEDS ORDERED: PRED5 PO (13:31)
[2019-08-06] MEDS ORDERED: OMEPRAZOLE20 MG PO (13:32)
[2019-08-06] MEDS ORDERED: PROM25 PO (13:32)
[2019-08-06] MEDS ORDERED: LOSA25 PO (15:06)
[2019-08-06 15:52] LABS: International Normalized Ratio 1.02; Prothrombin Time Results 10.8 Sec (9.7-11.5)
--- NOTE | 2019-08-06 19:42 | NUR ---
SHIFT SUMMARY- PT ADMITTD THROUGH THE ED, CARDIOLOGY CONSULT CALLED TO DR KOENIG. DR ORDERED 2-D ECHO. DR KOENIG REQUESTS THAT ANOTHER CARDIOLOGY CONSULT BE CALLED TOMORROW TO THE COUNTER ROLLER SQUADRON WORKER TO DETERMINE IF A NEIL IS WARRANTED. SPOKE TO DR JOAQUIN AT 1810 ABOUT THIS CONVERSATION AND RECIEVED A SECOND CARDIOLOGY CONSULT ORDER FOR DR ALEXANDER PUT IN FOR TOMORROW. PT HAS RIGHT SIDED DEFICIT. THE RIGHT LEG SEEMS TO MOVE AWKWARDLY AND WHEN RESISTANCE IS APPLIED SHE CAN NOT SEEM TO MOVE IT AT ALL. DR RAMESH. NEURO CHECKS Q4. PT ALERT AND ORIENTED CALLS APPROPRIATELY, 1P SBA TO THE BATHROOM. PT A LITTLE UNSTEADY LISTS TO THE RIGHT A SMALL AMOUNT.
[2019-08-07 05:18] LABS: BASOPHILS ABSOLUTE AUTO 0.05 K/mm3 (0.00-0.23); BASOPHILS PERCENT AUTO 1 % (0-2); EOSINOPHILS ABSOLUTE AUTO 0.21 K/mm3 (0.00-0.68); EOSINOPHILS PERCENT AUTO 2 % (0-6); Hematocrit 41.9 % (33.0-51.0); Hemoglobin 13.7 g/dL (11.5-16.0); IMMATURE GRAN ABSOLUTE AUTO 0.04 K/mm3 (0.00-0.10); IMMATURE GRAN PERCENT AUTO 0 % (0-1); LYMPHOCYTES ABSOLUTE AUTO 4.59 K/mm3 (0.84-5.20); LYMPHOCYTES PERCENT AUTO 42 % (21-46); MONOCYTES ABSOLUTE AUTO 0.73 K/mm3 (0.16-1.47); MONOCYTES PERCENT AUTO 7 % (4-13); Mean Corpuscular HGB 31.5 pg (26.0-34.0); Mean Corpuscular HGB Conc 32.7 g/dL (31.5-36.5); Mean Corpuscular Volume 96 fL (80-100); Mean Platelet Volume 9.7 fL (9.1-12.4); NEUTROPHILS ABSOLUTE AUTO 5.28 K/mm3 (1.96-9.15); NEUTROPHILS PERCENT AUTO 48 % (41-73); Platelet Count 278 K/mm3 (150-400); RDW Coefficient Variation 12.8 % (11.7-14.2); RDW Standard Deviation 45.9 fL (35.1-46.3); Red Blood Cell Count 4.35 M/mm3 (3.80-5.20)
[2019-08-07 05:34] LABS: Anion Gap 7 mmol/L (6-16); Blood Urea Nitrogen 19 mg/dL (8-24); Bun/Creatinine Ratio 22.6 (12.0-20.0); CO2, Blood 29 mmol/L (21-32); Calcium, Blood 8.7 mg/dL (8.5-10.1); Chloride, Blood 105 mmol/L (98-108); Creatinine, Blood 0.84 mg/dL (0.40-1.00); Glomerular Filtration Rate >60 (60-); Glucose, Blood 77 mg/dL (70-99); Potassium, Blood 3.7 mmol/L (3.5-5.5); Sodium, Blood 141 mmol/L (136-145)
--- NOTE | 2019-08-07 05:43 | NUR ---
ASSISTANT PROFESSOR OF PHYSICS SUMMARY PT A/O X4. DID NOT SLEEP WELL DUE TO HEADACHE. PT STATED NORCO SHE HAS BEEN RECIVEING HAS NOT HELPED HER WITH HEACHACHES. DR. WANG NOTIFIED OF THIS AND TRAMADOL PO 100MG ONCE HAS BEEN ORDERED. PT RE-ASSESSED AND EXPRESSED THIS DID NOT HELP WITH HER HEADACHE. I ASKED IF SHE WANTED NORCO TO WHICH PT DECLINED. ABOUT AN HOUR LATER, PT ASKED FOR NORCO. DITCH REPAIRER- EMI MEDICATED PT FOR PAIN. WHEN DITCH REPAIRER RE-ASSESSED PT, PT STATED THE HEADACHE "IT'S OKAY" Q4 NERUO CHECKS THROUGHOUT THE NIGHT. NO FACIAL DROOPS, TONGUE IN MIDLINE, PERRLA, PT'S STRENGTH IN R LEG IS WEAKER THAN LEFT LEG. AT BEGINNING OF SHIFT PT EXPRESSED THAT HER R FOOT FEELS LESS SENSATION AND FEELS HEAVIER THAN L FT. TOWARDS END OF SHIFT, PT STATED THAT SHE HAS MORE FEELING IN HER R FOOT COMPARED TO BEGINNING OF SHIFT. NO SLURRED SPEECH NOTED AND PT A/OX4 THROUGHOUT SHIFT. WILL CONTINUE TO MONITOR.
--- NOTE | 2019-08-07 12:02 | NUR ---
Upon receiving an admit referral for spiritual care, I visited patient. 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 Patient shares about her spiritual journey, her family and her disability. I listen empathically, and provide prayer. Patient responds well and shows signs of an elevated mood. I will continue to remain available to patient and family.
--- NOTE | 2019-08-07 18:15 | NUR ---
SHIFT SUMMARY PATIENT MEDICATED X1 FOR PAIN THIS SHIFT. DENIES NAUSEA AND SHORTNESS OF BREATH. PATIENT HAD ECHO AND CTA OF HEAD/NECK/AORTA TODAY. CARDIOLOGY AND NEUROLOGY CONSULTED. OT AND PT WORKED WITH PATIENT. PATIENT UP SBA W/FWW. CALL LIGHT IN REACH.
[2019-08-08 05:08] LABS: BASOPHILS ABSOLUTE AUTO 0.05 K/mm3 (0.00-0.23); BASOPHILS PERCENT AUTO 1 % (0-2); EOSINOPHILS ABSOLUTE AUTO 0.43 K/mm3 (0.00-0.68); EOSINOPHILS PERCENT AUTO 5 % (0-6); Hematocrit 39.3 % (33.0-51.0); Hemoglobin 12.6 g/dL (11.5-16.0); IMMATURE GRAN ABSOLUTE AUTO 0.03 K/mm3 (0.00-0.10); IMMATURE GRAN PERCENT AUTO 0 % (0-1); LYMPHOCYTES ABSOLUTE AUTO 4.13 K/mm3 (0.84-5.20); LYMPHOCYTES PERCENT AUTO 48 % (21-46); MONOCYTES ABSOLUTE AUTO 0.63 K/mm3 (0.16-1.47); MONOCYTES PERCENT AUTO 7 % (4-13); Mean Corpuscular HGB Conc 32.1 g/dL (31.5-36.5); Mean Corpuscular Volume 97 fL (80-100); Mean Platelet Volume 9.6 fL (9.1-12.4); NEUTROPHILS ABSOLUTE AUTO 3.36 K/mm3 (1.96-9.15); NEUTROPHILS PERCENT AUTO 39 % (41-73); Platelet Count 285 K/mm3 (150-400); Red Blood Cell Count 4.07 M/mm3 (3.80-5.20); White Blood Cell Count 8.63 K/mm3 (4.00-11.30)
[2019-08-08 05:30] LABS: CHOL/HDL RATIO 3.4; Cholesterol 189 mg/dL (50-200); HDL Cholesterol 56 mg/dL (>39); LDL/HDL RATIO 1.9; Low Density Lipoprotein Chol 105 mg/dL (0-110); Triglycerides 140 mg/dL (30-160); Very Low Density Lipoprot Chol 28 mg/dL (6-32)
--- NOTE | 2019-08-08 18:24 | NUR ---
SHIFT SUMMARY NO ACUTE CHANGES. PATIENT MEDICATED X2 FOR HEADACHE. DENIES NAUSEA AND SHORTNESS OF BREATH. PATIENT UP SBA TO BR. PT WORKED WITH PATIENT TWICE TODAY AND WILL SEE PATIENT AGAIN TOMORROW BEFORE HER TENTATIVE DISCHARGE. CALL LIGHT IN REACH.
--- NOTE | 2019-08-09 04:37 | NUR ---
SHIFT SUMMARY: VSS. AFEB. A/OX4. COMMUNICATES NEEDS. MED X 2 FOR C/O [place] 03/14. REPORTS PAIN IS REDUCED TO A MANAGEABLE LEVEL AFTER ANALGESICS. NEURO CHECKS WNL. PT REPORTS RLE NUMBNESS/TINGLING MUCH IMPROVED TONIGHT COMPARED TO LAST. STATES DOUBLE VISION CONTINUES UNCHANGED. PT NOT OBSERVED TO BE WEARING EYE PATCH THIS SHIFT. HAS BEEN SLEEPING INTERMITTENTLY. UP INDEPENDENTLY TO BSC. 1 ASSIST FOR AMB TO BATHROOM. BED LOW, CALL BUTTON IN REACH.
[2019-08-09 04:41] LABS: BASOPHILS ABSOLUTE AUTO 0.04 K/mm3 (0.00-0.23); BASOPHILS PERCENT AUTO 0 % (0-2); EOSINOPHILS ABSOLUTE AUTO 0.48 K/mm3 (0.00-0.68); EOSINOPHILS PERCENT AUTO 5 % (0-6); Hematocrit 37.8 % (33.0-51.0); Hemoglobin 12.5 g/dL (11.5-16.0); IMMATURE GRAN ABSOLUTE AUTO 0.05 K/mm3 (0.00-0.10); IMMATURE GRAN PERCENT AUTO 1 % (0-1); LYMPHOCYTES ABSOLUTE AUTO 4.29 K/mm3 (0.84-5.20); LYMPHOCYTES PERCENT AUTO 44 % (21-46); MONOCYTES ABSOLUTE AUTO 0.72 K/mm3 (0.16-1.47); MONOCYTES PERCENT AUTO 8 % (4-13); Mean Corpuscular HGB 31.8 pg (26.0-34.0); Mean Corpuscular HGB Conc 33.1 g/dL (31.5-36.5); Mean Corpuscular Volume 96 fL (80-100); Mean Platelet Volume 9.5 fL (9.1-12.4); NEUTROPHILS ABSOLUTE AUTO 4.08 K/mm3 (1.96-9.15); NEUTROPHILS PERCENT AUTO 42 % (41-73); Platelet Count 266 K/mm3 (150-400); RDW Coefficient Variation 12.8 % (11.7-14.2); RDW Standard Deviation 45.5 fL (35.1-46.3); Red Blood Cell Count 3.93 M/mm3 (3.80-5.20); White Blood Cell Count 9.66 K/mm3 (4.00-11.30)
[2019-08-09] MEDS ORDERED: Pravastatin Sod80 MG PO (14:21)
[2019-08-09] MEDS ORDERED: XARELTO20 MG PO (14:22)
--- NOTE | 2019-08-09 16:01 | NUR ---
DISCHARGE DISCHARGE MEDICATIONS AND INSTRUCTIONS EXPLAINED TO PATIENT. PATIENT STATED UNDERSTANDING. [employer] TELETYPEWRITER INSTALLER WILL CALL PATIENT AT HOME WITH FOLLOW UP APPOINTMENT. PATIENT HAS SELECTED [employer]. [facility] DEACCESSED WITHOUT ISSUE. BELONGINGS WITH PATIENT. PATIENT TRANSFERED TO PRIVATE VEHICLE VIA WHEELCHAIR.
== END 2019-08-09 15:33 | disposition home health service (06) | DRG 65 ==
LOC: ER 10:53 → MEDS 13:19
PROVIDERS: Emergency Medicine; Student in an Organized Health Care Education/Training Program; ADMIT Internal Medicine Endocrinology, Diabetes & Metabolism
DX: I63.412 Cerebral infarction due to embolism of left middle cerebral artery (principal); E74.8 Other specified disorders of carbohydrate metabolism; I10 Essential (primary) hypertension; J44.9 Chronic obstructive pulmonary disease, unspecified; M06.9 Rheumatoid arthritis, unspecified; I25.10 Atherosclerotic heart disease of native coronary artery without angina pectoris; M79.7 Fibromyalgia; F17.210 Nicotine dependence, cigarettes, uncomplicated; L40.50 Arthropathic psoriasis, unspecified; H53.2 Diplopia; R20.2 Paresthesia of skin; D89.9 Disorder involving the immune mechanism, unspecified; I25.2 Old myocardial infarction; Z95.5 Presence of coronary angioplasty implant and graft
CPT/HCPCS: 36415; 70450; 70496; 70498; 70551; 71275; 80048; 80053; 80061; 81001; 82550; 85025; 85610; 85730; 93005; 93010; 93306; 96374; 96375; 97110; 97116; 97162; 97165; 97530; 99285-25; A9270-GY; J1170; J1642; J1650; J2765; J3010; J7050; J7512; J8610; Q9967

== ENCOUNTER 2019-08-19 00:12 | Day surgery (SDC) | payer MEDICARE, OTHER | END 2019-08-19 11:55 | disposition home or self-care (01) | LOC: ATC 00:12 | DX: L40.50 Arthropathic psoriasis, unspecified (principal); M79.7 Fibromyalgia; G25.81 Restless legs syndrome; K21.9 Gastro-esophageal reflux disease without esophagitis; F17.200 Nicotine dependence, unspecified, uncomplicated; I10 Essential (primary) hypertension; I25.10 Atherosclerotic heart disease of native coronary artery without angina pectoris; Z95.5 Presence of coronary angioplasty implant and graft; Z79.52 Long term (current) use of systemic steroids; Z79.82 Long term (current) use of aspirin; Z79.01 Long term (current) use of anticoagulants; Z79.899 Other long term (current) drug therapy; Z88.1 Allergy status to other antibiotic agents; Z88.5 Allergy status to narcotic agent; Z88.8 Allergy status to other drugs, medicaments and biological substances; Z91.040 Latex allergy status; Z91.048 Other nonmedicinal substance allergy status; Z86.73 Personal history of transient ischemic attack (TIA), and cerebral infarction without residual deficits | CPT/HCPCS: 96413; 96415; J1642; J1745; J7050 ==

== ENCOUNTER → 2019-08-19 | Outpatient (CLI) | payer MEDICARE, OTHER ==
[~2019-08-19] MED LIST changes: +LOSA25 PO; +OMEPRAZOLE20 MG PO; +Pravastatin Sod80 MG PO; +XARELTO20 MG PO
[2019-08-19 11:14] LABS: Source, Urine Clean Catch
[2019-08-19 11:54] LABS: Bilirubin, Urine Neg (Neg); Blood, Urine 5+ (Neg); Glucose Qualitative, Urine Neg (Neg); Ketones, Urine Neg (Neg); Leukocyte Esterase, Urine Neg (Neg); Nitrite, Urine Neg (Neg); Protein, Urine Neg (Neg); Urobilinogen, Urine NORM (Normal)
[2019-08-19 12:14] LABS: Appearance, Urine Clear (Clear); Color, Urine Yellow (P-Yellow)
[2019-08-19 12:15] LABS: Red Blood Cells, Urine 25-50 /hpf (0-2); Squamous Epithelial Cells Few /hpf (Few); White Blood Cells, Urine Not Seen /hpf (0-5)
[2019-08-19 12:16] LABS: Bacteria Not Seen /hpf; Yeast/Fungi Urine Rare /hpf
== END | disposition home or self-care (01) ==
LOC: LAB SHORT 11:14 → LAB 11:14
PROVIDERS: Nurse Practitioner Family
DX: R31.9 Hematuria, unspecified (principal)
CPT/HCPCS: 81001

== ENCOUNTER 2019-10-13 00:05 | Day surgery (SDC) | payer MEDICARE, OTHER ==
[2019-10-13] MEDS ORDERED: Remicade100 MG IV (14:19)
== END 2019-10-13 16:48 | disposition home or self-care (01) ==
LOC: ATC 00:05
DX: L40.50 Arthropathic psoriasis, unspecified (principal); I10 Essential (primary) hypertension; L73.2 Hidradenitis suppurativa; I25.10 Atherosclerotic heart disease of native coronary artery without angina pectoris; Z95.5 Presence of coronary angioplasty implant and graft; M79.7 Fibromyalgia; Z88.5 Allergy status to narcotic agent; Z88.1 Allergy status to other antibiotic agents; Z79.899 Other long term (current) drug therapy
CPT/HCPCS: 96413; 96415; J1642; J1745; J7050

== ENCOUNTER 2019-11-23 00:05 | Day surgery (SDC) | payer MEDICARE, OTHER | END 2019-11-23 16:31 | disposition home or self-care (01) | LOC: ATC 00:05 | DX: L40.50 Arthropathic psoriasis, unspecified (principal); I10 Essential (primary) hypertension; Z79.82 Long term (current) use of aspirin; Z79.899 Other long term (current) drug therapy | CPT/HCPCS: J1642; J1745; J7050 ==

== ENCOUNTER 2019-12-19 00:16 | Emergency (ER) | payer MEDICARE, OTHER ==
[~2019-12-19] VITALS: Ht 160 cm; Wt 86.2 kg
[2019-12-19] MEDS ORDERED: CHLO25B PO (01:10)
[2019-12-19 01:11] LABS: BASOPHILS ABSOLUTE AUTO 0.06 K/mm3 (0.00-0.23); BASOPHILS PERCENT AUTO 1 % (0-2); EOSINOPHILS ABSOLUTE AUTO 0.29 K/mm3 (0.00-0.68); EOSINOPHILS PERCENT AUTO 2 % (0-6); Hematocrit 34.5 % (33.0-51.0); IMMATURE GRAN ABSOLUTE AUTO 0.04 K/mm3 (0.00-0.10); IMMATURE GRAN PERCENT AUTO 0 % (0-1); LYMPHOCYTES ABSOLUTE AUTO 4.66 K/mm3 (0.84-5.20); LYMPHOCYTES PERCENT AUTO 36 % (21-46); MONOCYTES ABSOLUTE AUTO 0.95 K/mm3 (0.16-1.47); MONOCYTES PERCENT AUTO 7 % (4-13); Mean Corpuscular HGB 31.5 pg (26.0-34.0); Mean Corpuscular HGB Conc 31.9 g/dL (31.5-36.5); Mean Corpuscular Volume 99 fL (80-100); Mean Platelet Volume 10.7 fL (9.1-12.4); NEUTROPHILS ABSOLUTE AUTO 6.94 K/mm3 (1.96-9.15); NEUTROPHILS PERCENT AUTO 54 % (41-73); Platelet Count 184 K/mm3 (150-400); RDW Coefficient Variation 13.2 % (11.7-14.2); RDW Standard Deviation 47.8 fL (35.1-46.3); Red Blood Cell Count 3.49 M/mm3 (3.80-5.20); White Blood Cell Count 12.94 K/mm3 (4.00-11.30)
[2019-12-19 01:22] LABS: Anion Gap 8 mmol/L (6-16); Blood Urea Nitrogen 15 mg/dL (8-24); Bun/Creatinine Ratio 17.6 (12.0-20.0); CO2, Blood 26 mmol/L (21-32); Calcium, Blood 8.4 mg/dL (8.5-10.1); Chloride, Blood 109 mmol/L (98-108); Creatinine, Blood 0.85 mg/dL (0.40-1.00); Glomerular Filtration Rate >60 (60-); Glucose, Blood 101 mg/dL (70-99); Potassium, Blood 4.4 mmol/L (3.5-5.5); Sodium, Blood 143 mmol/L (136-145)
[2019-12-21] MEDS ORDERED: AMLO5 PO (00:22)
[2019-12-22] MEDS ORDERED: Nicoderm Cq1 EAC1 TOP (09:27)
== END 2019-12-19 05:49 | disposition home or self-care (01) ==
LOC: ER 00:16
PROVIDERS: Emergency Medicine
DX: I10 Essential (primary) hypertension (principal); G43.909 Migraine, unspecified, not intractable, without status migrainosus; K21.9 Gastro-esophageal reflux disease without esophagitis; E78.5 Hyperlipidemia, unspecified; F17.210 Nicotine dependence, cigarettes, uncomplicated; Z91.040 Latex allergy status; Z88.5 Allergy status to narcotic agent; Z91.048 Other nonmedicinal substance allergy status; Z88.1 Allergy status to other antibiotic agents; Z88.8 Allergy status to other drugs, medicaments and biological substances; Z79.899 Other long term (current) drug therapy; Z79.51 Long term (current) use of inhaled steroids; Z79.82 Long term (current) use of aspirin
CPT/HCPCS: 36415; 70450; 80048; 85025; 93005; 93010; 96374; 96375; 99285-25; A9270; J1885; J2060

== ENCOUNTER 2019-12-24 23:24 | Emergency (ER) | payer MEDICARE, OTHER ==
[~2019-12-24] VITALS: Ht 160 cm; Wt 86.2 kg
[~2019-12-24 23:24] MED LIST changes: +AMLO5 PO; +CHLO25B PO; +Nicoderm Cq1 EAC1 TOP
[2019-12-25] MEDS ORDERED: Ativan0.5 MG PO (00:58)
== END 2019-12-25 02:08 | disposition home or self-care (01) ==
LOC: ER 23:24
DX: R25.1 Tremor, unspecified (principal); F41.9 Anxiety disorder, unspecified; I10 Essential (primary) hypertension; E78.5 Hyperlipidemia, unspecified; K21.9 Gastro-esophageal reflux disease without esophagitis; M79.7 Fibromyalgia; F17.210 Nicotine dependence, cigarettes, uncomplicated; Z88.5 Allergy status to narcotic agent; Z88.1 Allergy status to other antibiotic agents; Z91.040 Latex allergy status; Z88.8 Allergy status to other drugs, medicaments and biological substances; Z79.82 Long term (current) use of aspirin; Z79.899 Other long term (current) drug therapy; Z79.52 Long term (current) use of systemic steroids
CPT/HCPCS: 99284

== ENCOUNTER 2019-12-28 11:42 | Emergency (ER) | payer MEDICARE, OTHER ==
[~2019-12-28] VITALS: Ht 160 cm; Wt 84.4 kg
[~2019-12-28 11:42] MED LIST changes: +Ativan0.5 MG PO
[2019-12-28 12:16] LABS: BASOPHILS ABSOLUTE AUTO 0.08 K/mm3 (0.00-0.23); BASOPHILS PERCENT AUTO 1 % (0-2); EOSINOPHILS ABSOLUTE AUTO 0.57 K/mm3 (0.00-0.68); EOSINOPHILS PERCENT AUTO 3 % (0-6); Hemoglobin 12.5 g/dL (11.5-16.0); IMMATURE GRAN PERCENT AUTO 1 % (0-1); LYMPHOCYTES ABSOLUTE AUTO 2.79 K/mm3 (0.84-5.20); LYMPHOCYTES PERCENT AUTO 16 % (21-46); MONOCYTES ABSOLUTE AUTO 0.91 K/mm3 (0.16-1.47); MONOCYTES PERCENT AUTO 5 % (4-13); Mean Corpuscular HGB 31.6 pg (26.0-34.0); Mean Corpuscular HGB Conc 32.9 g/dL (31.5-36.5); Mean Corpuscular Volume 96 fL (80-100); Mean Platelet Volume 10.5 fL (9.1-12.4); NEUTROPHILS ABSOLUTE AUTO 13.26 K/mm3 (1.96-9.15); NEUTROPHILS PERCENT AUTO 75 % (41-73); Platelet Count 211 K/mm3 (150-400); RDW Coefficient Variation 12.7 % (11.7-14.2); RDW Standard Deviation 44.9 fL (35.1-46.3); Red Blood Cell Count 3.95 M/mm3 (3.80-5.20); White Blood Cell Count 17.71 K/mm3 (4.00-11.30)
[2019-12-28 12:40] LABS: Alanine Aminotransfer (ALT/SGP 18 U/L (12-78); Albumin, Blood 3.5 g/dL (3.4-5.0); Alk Phos 70 U/L (50-136); Anion Gap 8 mmol/L (6-16); Aspartate Aminotrans (AST/SGOT 13 U/L (12-37); Blood Urea Nitrogen 26 mg/dL (8-24); Bun/Creatinine Ratio 25.7 (12.0-20.0); CO2, Blood 27 mmol/L (21-32); Calcium, Blood 8.8 mg/dL (8.5-10.1); Chloride, Blood 102 mmol/L (98-108); Creatinine, Blood 1.01 mg/dL (0.40-1.00); Globulin, Blood 3.4 g/dL (2.2-4.0); Glomerular Filtration Rate >60 (60-); Glucose, Blood 101 mg/dL (70-99); Potassium, Blood 3.4 mmol/L (3.5-5.5); Sodium, Blood 137 mmol/L (136-145); Total Protein, Blood 6.9 g/dL (6.4-8.2); Troponin I <0.015 ng/mL (0.000-0.040)
[2019-12-28 13:52] LABS: U Amphetamine Screen Not Detected; U Barbituate Screen Not Detected; U Benzodiazapine Screen Not Detected; U Buprenorphine Screen Not Detected; U Cannabinoids Screen DETECTED; U Cocaine Screen Not Detected; U Methadone Screen Not Detected; U Methamphetamine Screen Not Detected; U Opiates Screen DETECTED; U Oxycodone Screen Not Detected; U Phencyclidine Screen Not Detected; U Propoxyphene Screen Not Detected
== END 2019-12-28 15:12 | disposition home or self-care (01) ==
LOC: ER 11:42
PROVIDERS: Emergency Medicine
DX: R53.1 Weakness (principal); R53.81 Other malaise; I10 Essential (primary) hypertension; R00.1 Bradycardia, unspecified; I25.10 Atherosclerotic heart disease of native coronary artery without angina pectoris; J44.9 Chronic obstructive pulmonary disease, unspecified; G62.9 Polyneuropathy, unspecified; M79.7 Fibromyalgia; F17.210 Nicotine dependence, cigarettes, uncomplicated; Z91.040 Latex allergy status; Z88.5 Allergy status to narcotic agent; Z91.048 Other nonmedicinal substance allergy status; Z88.1 Allergy status to other antibiotic agents; Z88.8 Allergy status to other drugs, medicaments and biological substances; Z79.899 Other long term (current) drug therapy; Z79.82 Long term (current) use of aspirin; Z79.52 Long term (current) use of systemic steroids
CPT/HCPCS: 36415; 71045; 80053; 84484; 85025; 93005; 93010; 99285-25

== ENCOUNTER 2020-01-11 00:24 | Day surgery (SDC) | payer MEDICARE, OTHER ==
[~2020-01-11 00:24] MED LIST changes: +Lomotil Tablet1 EACH PO
== END 2020-01-11 15:58 | disposition home or self-care (01) ==
LOC: ATC 00:24
DX: L40.50 Arthropathic psoriasis, unspecified (principal); I10 Essential (primary) hypertension; Z88.5 Allergy status to narcotic agent; Z88.1 Allergy status to other antibiotic agents
CPT/HCPCS: 96413; 96415; J1642; J1745; J7050

== ENCOUNTER 2020-03-23 09:49 | Emergency (ER) | payer MEDICARE, OTHER ==
[~2020-03-23] VITALS: Ht 160 cm; Wt 86.2 kg
[2020-03-23 10:30] LABS: BASOPHILS ABSOLUTE AUTO 0.09 K/mm3 (0.00-0.23); BASOPHILS PERCENT AUTO 1 % (0-2); EOSINOPHILS ABSOLUTE AUTO 0.56 K/mm3 (0.00-0.68); EOSINOPHILS PERCENT AUTO 5 % (0-6); Hematocrit 36.1 % (33.0-51.0); Hemoglobin 11.4 g/dL (11.5-16.0); IMMATURE GRAN ABSOLUTE AUTO 0.03 K/mm3 (0.00-0.10); IMMATURE GRAN PERCENT AUTO 0 % (0-1); LYMPHOCYTES PERCENT AUTO 18 % (21-46); MONOCYTES ABSOLUTE AUTO 0.34 K/mm3 (0.16-1.47); MONOCYTES PERCENT AUTO 3 % (4-13); Mean Corpuscular HGB 29.4 pg (26.0-34.0); Mean Corpuscular HGB Conc 31.6 g/dL (31.5-36.5); Mean Corpuscular Volume 93 fL (80-100); Mean Platelet Volume 9.8 fL (9.1-12.4); NEUTROPHILS ABSOLUTE AUTO 7.43 K/mm3 (1.96-9.15); NEUTROPHILS PERCENT AUTO 72 % (41-73); Platelet Count 249 K/mm3 (150-400); RDW Coefficient Variation 13.6 % (11.7-14.2); RDW Standard Deviation 46.4 fL (35.1-46.3); Red Blood Cell Count 3.88 M/mm3 (3.80-5.20); White Blood Cell Count 10.35 K/mm3 (4.00-11.30)
[2020-03-23 10:44] LABS: International Normalized Ratio 1.33
[2020-03-23 10:53] LABS: Alanine Aminotransfer (ALT/SGP 27 U/L (12-78); Albumin, Blood 3.6 g/dL (3.4-5.0); Albumin/Globulin Ratio 0.9 (0.8-1.8); Alk Phos 98 U/L (50-136); Anion Gap 6 mmol/L (6-16); Aspartate Aminotrans (AST/SGOT 24 U/L (12-37); Bilirubin, Total 0.5 mg/dL (0.1-1.0); Blood Urea Nitrogen 19 mg/dL (8-24); Bun/Creatinine Ratio 19.6 (12.0-20.0); CO2, Blood 26 mmol/L (21-32); Calcium, Blood 9.1 mg/dL (8.5-10.1); Chloride, Blood 104 mmol/L (98-108); Creatinine, Blood 0.97 mg/dL (0.40-1.00); Globulin, Blood 3.8 g/dL (2.2-4.0); Glomerular Filtration Rate >60 (60-); Glucose, Blood 130 mg/dL (70-99); Sodium, Blood 136 mmol/L (136-145); Total Protein, Blood 7.4 g/dL (6.4-8.2)
== END 2020-03-23 12:30 | disposition home or self-care (01) ==
LOC: ER 09:49
PROVIDERS: Physician Assistant
DX: G43.909 Migraine, unspecified, not intractable, without status migrainosus (principal); K21.9 Gastro-esophageal reflux disease without esophagitis; I10 Essential (primary) hypertension; E78.5 Hyperlipidemia, unspecified; I25.10 Atherosclerotic heart disease of native coronary artery without angina pectoris; J44.9 Chronic obstructive pulmonary disease, unspecified; F17.210 Nicotine dependence, cigarettes, uncomplicated; Z95.5 Presence of coronary angioplasty implant and graft; Z86.73 Personal history of transient ischemic attack (TIA), and cerebral infarction without residual deficits; Z79.82 Long term (current) use of aspirin; Z79.899 Other long term (current) drug therapy; Z91.040 Latex allergy status; Z88.5 Allergy status to narcotic agent; Z88.1 Allergy status to other antibiotic agents; Z91.09 Other allergy status, other than to drugs and biological substances; Z88.8 Allergy status to other drugs, medicaments and biological substances
CPT/HCPCS: 36415; 70450; 80053; 85025; 85610; 93005; 93010; 96374; 96375; 99284-25; J0780; J1200; J1885; J7030

== ENCOUNTER 2020-04-04 00:10 | Day surgery (SDC) | payer MEDICARE, OTHER | END 2020-04-04 16:55 | disposition home or self-care (01) | LOC: ATC 00:10 | DX: L40.50 Arthropathic psoriasis, unspecified (principal); M79.7 Fibromyalgia; F17.200 Nicotine dependence, unspecified, uncomplicated; K21.9 Gastro-esophageal reflux disease without esophagitis; G25.81 Restless legs syndrome; I10 Essential (primary) hypertension; I25.10 Atherosclerotic heart disease of native coronary artery without angina pectoris; Z79.899 Other long term (current) drug therapy; Z95.5 Presence of coronary angioplasty implant and graft; Z79.82 Long term (current) use of aspirin | CPT/HCPCS: J1642; J1745; J7050 ==

== ENCOUNTER → 2020-04-20 | Outpatient (CLI) | payer MEDICARE | END | disposition home or self-care (01) | LOC: LAB SHORT 13:24 → LAB 13:24 | DX: H92.03 Otalgia, bilateral (principal) | CPT/HCPCS: 87070; 87205; 87252; 87254 ==

== ENCOUNTER 2020-05-20 01:17 | Day surgery (SDC) | payer MEDICARE, OTHER ==
[2020-05-20 09:41] LABS: BASOPHILS ABSOLUTE AUTO 0.09 K/mm3 (0.00-0.23); BASOPHILS PERCENT AUTO 1 % (0-2); EOSINOPHILS ABSOLUTE AUTO 1.12 K/mm3 (0.00-0.68); EOSINOPHILS PERCENT AUTO 11 % (0-6); Hematocrit 32.8 % (33.0-51.0); Hemoglobin 10.4 g/dL (11.5-16.0); IMMATURE GRAN ABSOLUTE AUTO 0.03 K/mm3 (0.00-0.10); IMMATURE GRAN PERCENT AUTO 0 % (0-1); LYMPHOCYTES ABSOLUTE AUTO 2.09 K/mm3 (0.84-5.20); LYMPHOCYTES PERCENT AUTO 20 % (21-46); MONOCYTES ABSOLUTE AUTO 0.56 K/mm3 (0.16-1.47); MONOCYTES PERCENT AUTO 5 % (4-13); Mean Corpuscular HGB Conc 31.7 g/dL (31.5-36.5); Mean Corpuscular Volume 88 fL (80-100); Mean Platelet Volume 9.3 fL (9.1-12.4); NEUTROPHILS ABSOLUTE AUTO 6.49 K/mm3 (1.96-9.15); NEUTROPHILS PERCENT AUTO 63 % (41-73); Platelet Count 250 K/mm3 (150-400); RDW Coefficient Variation 14.7 % (11.7-14.2); RDW Standard Deviation 47.6 fL (35.1-46.3); Red Blood Cell Count 3.72 M/mm3 (3.80-5.20); White Blood Cell Count 10.38 K/mm3 (4.00-11.30)
[2020-05-20 10:01] LABS: Alanine Aminotransfer (ALT/SGP 17 U/L (12-78); Albumin, Blood 3.3 g/dL (3.4-5.0); Alk Phos 76 U/L (50-136); Anion Gap 4 mmol/L (6-16); Aspartate Aminotrans (AST/SGOT 14 U/L (12-37); Bilirubin, Total 0.4 mg/dL (0.1-1.0); Blood Urea Nitrogen 21 mg/dL (8-24); Bun/Creatinine Ratio 24.4 (12.0-20.0); CO2, Blood 30 mmol/L (21-32); Calcium, Blood 8.5 mg/dL (8.5-10.1); Chloride, Blood 105 mmol/L (98-108); Creatinine, Blood 0.86 mg/dL (0.40-1.00); Globulin, Blood 3.4 g/dL (2.2-4.0); Glomerular Filtration Rate >60 (60-); Glucose, Blood 131 mg/dL (70-99); Potassium, Blood 3.5 mmol/L (3.5-5.5); Sodium, Blood 139 mmol/L (136-145); Total Protein, Blood 6.7 g/dL (6.4-8.2)
[2020-05-20 12:54] LABS: Percent Saturation 3.9 % (15.0-50.0)
== END 2020-05-20 11:55 | disposition home or self-care (01) ==
LOC: ATC 01:17
PROVIDERS: Nurse Practitioner Family
DX: L40.50 Arthropathic psoriasis, unspecified (principal); I10 Essential (primary) hypertension; Z88.5 Allergy status to narcotic agent; Z88.1 Allergy status to other antibiotic agents; Z86.73 Personal history of transient ischemic attack (TIA), and cerebral infarction without residual deficits; Z79.82 Long term (current) use of aspirin; Z79.899 Other long term (current) drug therapy; Z79.01 Long term (current) use of anticoagulants
CPT/HCPCS: 80053; 82728; 83540; 83550; 85025; 96413; 96415; J1642; J1745; J7050

== ENCOUNTER 2020-07-04 07:42 | Day surgery (SDC) | payer MEDICARE, OTHER ==
[2020-07-04 14:13] LABS: BASOPHILS ABSOLUTE AUTO 0.08 K/mm3 (0.00-0.23); BASOPHILS PERCENT AUTO 1 % (0-2); EOSINOPHILS ABSOLUTE AUTO 0.24 K/mm3 (0.00-0.68); EOSINOPHILS PERCENT AUTO 2 % (0-6); Hematocrit 37.5 % (33.0-51.0); IMMATURE GRAN ABSOLUTE AUTO 0.05 K/mm3 (0.00-0.10); IMMATURE GRAN PERCENT AUTO 0 % (0-1); LYMPHOCYTES ABSOLUTE AUTO 2.52 K/mm3 (0.84-5.20); LYMPHOCYTES PERCENT AUTO 22 % (21-46); MONOCYTES ABSOLUTE AUTO 0.36 K/mm3 (0.16-1.47); MONOCYTES PERCENT AUTO 3 % (4-13); Mean Corpuscular HGB 29.4 pg (26.0-34.0); Mean Corpuscular Volume 92 fL (80-100); Mean Platelet Volume 9.6 fL (9.1-12.4); NEUTROPHILS ABSOLUTE AUTO 8.02 K/mm3 (1.96-9.15); NEUTROPHILS PERCENT AUTO 71 % (41-73); Platelet Count 225 K/mm3 (150-400); RDW Coefficient Variation 18.2 % (11.7-14.2); RDW Standard Deviation 60.5 fL (35.1-46.3); Red Blood Cell Count 4.08 M/mm3 (3.80-5.20); White Blood Cell Count 11.27 K/mm3 (4.00-11.30)
[2020-07-04 14:45] LABS: Percent Saturation 22.3 % (15.0-50.0)
== END 2020-07-04 17:15 | disposition home or self-care (01) ==
LOC: ATC 07:42
PROVIDERS: Nurse Practitioner Family
DX: L40.50 Arthropathic psoriasis, unspecified (principal); M79.7 Fibromyalgia; I10 Essential (primary) hypertension; F17.210 Nicotine dependence, cigarettes, uncomplicated; G47.33 Obstructive sleep apnea (adult) (pediatric); Z79.52 Long term (current) use of systemic steroids; Z79.899 Other long term (current) drug therapy; Z95.5 Presence of coronary angioplasty implant and graft; Z86.73 Personal history of transient ischemic attack (TIA), and cerebral infarction without residual deficits; Z88.1 Allergy status to other antibiotic agents; Z88.5 Allergy status to narcotic agent; Z88.8 Allergy status to other drugs, medicaments and biological substances; Z91.040 Latex allergy status; Z91.048 Other nonmedicinal substance allergy status; Z79.82 Long term (current) use of aspirin
CPT/HCPCS: 82728; 83540; 83550; 85025; J1642; J1745; J7050

== ENCOUNTER 2020-08-15 00:23 | Day surgery (SDC) | payer MEDICARE, SELFPAY ==
[~2020-08-15 00:23] MED LIST changes: -CHLO25B PO; -OMEPRAZOLE20 MG PO; -Pravastatin Sod80 MG PO; -XARELTO20 MG PO
[2020-08-15 16:23] LABS: BASOPHILS ABSOLUTE AUTO 0.03 K/mm3 (0.00-0.23); BASOPHILS PERCENT AUTO 0 % (0-2); EOSINOPHILS ABSOLUTE AUTO 0.12 K/mm3 (0.00-0.68); EOSINOPHILS PERCENT AUTO 1 % (0-6); Hematocrit 39.4 % (33.0-51.0); Hemoglobin 13.2 g/dL (11.5-16.0); IMMATURE GRAN ABSOLUTE AUTO 0.07 K/mm3 (0.00-0.10); IMMATURE GRAN PERCENT AUTO 1 % (0-1); LYMPHOCYTES ABSOLUTE AUTO 3.07 K/mm3 (0.84-5.20); LYMPHOCYTES PERCENT AUTO 22 % (21-46); MONOCYTES ABSOLUTE AUTO 0.59 K/mm3 (0.16-1.47); MONOCYTES PERCENT AUTO 4 % (4-13); Mean Corpuscular HGB 30.9 pg (26.0-34.0); Mean Corpuscular HGB Conc 33.5 g/dL (31.5-36.5); Mean Corpuscular Volume 92 fL (80-100); Mean Platelet Volume 9.5 fL (9.1-12.4); NEUTROPHILS ABSOLUTE AUTO 9.99 K/mm3 (1.96-9.15); NEUTROPHILS PERCENT AUTO 72 % (41-73); Platelet Count 206 K/mm3 (150-400); RDW Coefficient Variation 15.7 % (11.7-14.2); Red Blood Cell Count 4.27 M/mm3 (3.80-5.20); White Blood Cell Count 13.87 K/mm3 (4.00-11.30)
[2020-08-15 16:58] LABS: Percent Saturation 10.5 % (15.0-50.0)
== END 2020-08-15 16:13 | disposition home or self-care (01) ==
LOC: ATC 00:23
PROVIDERS: Internal Medicine Rheumatology
DX: L40.50 Arthropathic psoriasis, unspecified (principal); M79.7 Fibromyalgia; M54.5 Low back pain; D50.9 Iron deficiency anemia, unspecified; I69.998 Other sequelae following unspecified cerebrovascular disease; H53.9 Unspecified visual disturbance; G25.81 Restless legs syndrome; K21.9 Gastro-esophageal reflux disease without esophagitis; I10 Essential (primary) hypertension; Z79.899 Other long term (current) drug therapy; Z88.5 Allergy status to narcotic agent; Z88.1 Allergy status to other antibiotic agents; Z88.8 Allergy status to other drugs, medicaments and biological substances; Z91.040 Latex allergy status; Z91.048 Other nonmedicinal substance allergy status; Z79.01 Long term (current) use of anticoagulants
CPT/HCPCS: 82728; 83540; 83550; 85025; 96413; 96415; J1642; J1745; J7050

== ENCOUNTER → 2020-08-22 | Outpatient (CLI) | payer MEDICARE, OTHER ==
[~2020-08-22] MED LIST changes: +CHLO25B PO; +OMEPRAZOLE20 MG PO; +Pravastatin Sod80 MG PO; +TRAZ50 PO; +XARELTO20 MG PO; +ZEBUTAL 50-3251 EAC1 PO
== END | disposition home or self-care (01) ==
LOC: LAB SHORT 10:15 → LAB 10:15
DX: L73.2 Hidradenitis suppurativa (principal)
CPT/HCPCS: 87070; 87205

== ENCOUNTER 2020-09-26 00:30 | Day surgery (SDC) | payer MEDICARE, SELFPAY ==
[~2020-09-26 00:30] MED LIST changes: -CHLO25B PO; -OMEPRAZOLE20 MG PO; -Pravastatin Sod80 MG PO; -TRAZ50 PO; -XARELTO20 MG PO; -ZEBUTAL 50-3251 EAC1 PO
== END 2020-09-26 16:23 | disposition home or self-care (01) ==
LOC: ATC 00:30
DX: L40.50 Arthropathic psoriasis, unspecified (principal); I10 Essential (primary) hypertension; I25.10 Atherosclerotic heart disease of native coronary artery without angina pectoris; Z86.73 Personal history of transient ischemic attack (TIA), and cerebral infarction without residual deficits; Z79.52 Long term (current) use of systemic steroids
CPT/HCPCS: 96413; 96415; J1642; J1745; J7050

== ENCOUNTER 2020-10-05 11:34 | Emergency (ER) | payer MEDICARE, SELFPAY ==
[~2020-10-05] VITALS: Ht 160 cm; Wt 86.2 kg
[2020-10-05 12:32] LABS: BASOPHILS ABSOLUTE AUTO 0.09 K/mm3 (0.00-0.23); BASOPHILS PERCENT AUTO 1 % (0-2); EOSINOPHILS ABSOLUTE AUTO 0.45 K/mm3 (0.00-0.68); EOSINOPHILS PERCENT AUTO 3 % (0-6); Hematocrit 41.4 % (33.0-51.0); Hemoglobin 13.6 g/dL (11.5-16.0); IMMATURE GRAN ABSOLUTE AUTO 0.06 K/mm3 (0.00-0.10); IMMATURE GRAN PERCENT AUTO 1 % (0-1); LYMPHOCYTES ABSOLUTE AUTO 1.93 K/mm3 (0.84-5.20); LYMPHOCYTES PERCENT AUTO 15 % (21-46); MONOCYTES ABSOLUTE AUTO 0.45 K/mm3 (0.16-1.47); MONOCYTES PERCENT AUTO 3 % (4-13); Mean Corpuscular HGB 31.3 pg (26.0-34.0); Mean Corpuscular HGB Conc 32.9 g/dL (31.5-36.5); Mean Corpuscular Volume 95 fL (80-100); Mean Platelet Volume 9.8 fL (9.1-12.4); NEUTROPHILS ABSOLUTE AUTO 10.18 K/mm3 (1.96-9.15); NEUTROPHILS PERCENT AUTO 77 % (41-73); Platelet Count 217 K/mm3 (150-400); RDW Coefficient Variation 13.1 % (11.7-14.2); RDW Standard Deviation 45.6 fL (35.1-46.3); Red Blood Cell Count 4.35 M/mm3 (3.80-5.20); White Blood Cell Count 13.16 K/mm3 (4.00-11.30)
[2020-10-05 12:52] LABS: Alanine Aminotransfer (ALT/SGP 20 U/L (12-78); Albumin, Blood 3.7 g/dL (3.4-5.0); Albumin/Globulin Ratio 1.2 (0.8-1.8); Alk Phos 91 U/L (50-136); Anion Gap 5 mmol/L (6-16); Aspartate Aminotrans (AST/SGOT 14 U/L (12-37); Bilirubin, Total 0.4 mg/dL (0.1-1.0); Blood Urea Nitrogen 21 mg/dL (8-24); Bun/Creatinine Ratio 23.8 (12.0-20.0); CO2, Blood 31 mmol/L (21-32); Chloride, Blood 103 mmol/L (98-108); Creatinine, Blood 0.88 mg/dL (0.40-1.00); Globulin, Blood 3.2 g/dL (2.2-4.0); Glomerular Filtration Rate >60 (60-); Glucose, Blood 116 mg/dL (70-99); Potassium, Blood 3.7 mmol/L (3.5-5.5); Sodium, Blood 139 mmol/L (136-145); Total Protein, Blood 6.9 g/dL (6.4-8.2)
[2020-10-05 13:00] LABS: International Normalized Ratio 1.22; Prothrombin Time Results 12.9 Sec (9.7-11.5)
[2020-10-05] MEDS ORDERED: CHLO25B PO (13:22)
[2020-10-05] MEDS ORDERED: TRAZ50 PO (13:23)
[2020-10-05] MEDS ORDERED: Norco 10-325 T1 EACH PO (13:23)
[2020-10-05] MEDS ORDERED: METTREX2.5 PO (13:25)
[2020-10-05] MEDS ORDERED: XARELTO20 MG PO (13:25)
[2020-10-05] MEDS ORDERED: Pravastatin Sod80 MG PO (13:25)
[2020-10-05] MEDS ORDERED: LEUC5 PO (13:26)
[2020-10-05] MEDS ORDERED: OMEPRAZOLE20 MG PO (13:26)
[2020-10-05] MEDS ORDERED: FOLI1 PO (13:26)
[2020-10-05] MEDS ORDERED: ZEBUTAL 50-3251 EAC1 PO (14:32)
== END 2020-10-05 15:10 | disposition home or self-care (01) ==
LOC: ER 11:34
PROVIDERS: Emergency Medicine
DX: R51.9 Headache, unspecified (principal); R47.9 Unspecified speech disturbances; K21.9 Gastro-esophageal reflux disease without esophagitis; I10 Essential (primary) hypertension; E78.5 Hyperlipidemia, unspecified; I25.10 Atherosclerotic heart disease of native coronary artery without angina pectoris; J44.9 Chronic obstructive pulmonary disease, unspecified; F17.210 Nicotine dependence, cigarettes, uncomplicated; Z88.2 Allergy status to sulfonamides; Z88.5 Allergy status to narcotic agent; Z88.1 Allergy status to other antibiotic agents; Z91.040 Latex allergy status; Z91.09 Other allergy status, other than to drugs and biological substances; Z88.8 Allergy status to other drugs, medicaments and biological substances
CPT/HCPCS: 70450; 80053; 85025; 85610; 85730; 93005; 93010; 96361; 96374; 96375; 99285-25; A9270; J1200; J1642; J1885; J7120

== ENCOUNTER 2020-11-07 00:02 | Day surgery (SDC) | payer MEDICARE, SELFPAY ==
[~2020-11-07 00:02] MED LIST changes: +CHLO25B PO; +OMEPRAZOLE20 MG PO; +Pravastatin Sod80 MG PO; +TRAZ50 PO; +XARELTO20 MG PO; +ZEBUTAL 50-3251 EAC1 PO
== END 2020-11-07 22:59 | disposition home or self-care (01) ==
LOC: ATC 00:02
DX: L40.50 Arthropathic psoriasis, unspecified (principal)
CPT/HCPCS: 96413; 96415; J1642; J1745; J7050

== ENCOUNTER 2020-12-19 00:27 | Day surgery (SDC) | payer MEDICARE, SELFPAY | END 2020-12-19 16:10 | disposition home or self-care (01) | LOC: ATC 00:27 | DX: L40.50 Arthropathic psoriasis, unspecified (principal); M79.7 Fibromyalgia; I10 Essential (primary) hypertension; K51.90 Ulcerative colitis, unspecified, without complications; I25.10 Atherosclerotic heart disease of native coronary artery without angina pectoris; L73.2 Hidradenitis suppurativa; Z95.5 Presence of coronary angioplasty implant and graft; Z88.5 Allergy status to narcotic agent; Z88.8 Allergy status to other drugs, medicaments and biological substances | CPT/HCPCS: 96413; 96415; J1642; J1745; J7050 ==

== ENCOUNTER 2021-01-30 00:21 | Day surgery (SDC) | payer MEDICARE, SELFPAY ==
[~2021-01-30] VITALS: Wt 88.7 kg
[2021-01-30 10:11] LABS: BASOPHILS ABSOLUTE AUTO 0.08 K/mm3 (0.00-0.23); BASOPHILS PERCENT AUTO 1 % (0-2); EOSINOPHILS ABSOLUTE AUTO 1.33 K/mm3 (0.00-0.68); EOSINOPHILS PERCENT AUTO 10 % (0-6); Hemoglobin 13.2 g/dL (11.5-16.0); IMMATURE GRAN ABSOLUTE AUTO 0.05 K/mm3 (0.00-0.10); IMMATURE GRAN PERCENT AUTO 0 % (0-1); LYMPHOCYTES ABSOLUTE AUTO 3.79 K/mm3 (0.84-5.20); LYMPHOCYTES PERCENT AUTO 30 % (21-46); MONOCYTES ABSOLUTE AUTO 0.78 K/mm3 (0.16-1.47); MONOCYTES PERCENT AUTO 6 % (4-13); Mean Corpuscular Volume 97 fL (80-100); NEUTROPHILS ABSOLUTE AUTO 6.73 K/mm3 (1.96-9.15); NEUTROPHILS PERCENT AUTO 53 % (41-73); Platelet Count 208 K/mm3 (150-400); RDW Coefficient Variation 12.6 % (11.7-14.2); RDW Standard Deviation 44.4 fL (35.1-46.3); Red Blood Cell Count 4.12 M/mm3 (3.80-5.20); White Blood Cell Count 12.76 K/mm3 (4.00-11.30)
[2021-01-30 10:37] LABS: Alanine Aminotransfer (ALT/SGP 22 U/L (12-78); Albumin, Blood 3.6 g/dL (3.4-5.0); Albumin/Globulin Ratio 1.1 (0.8-1.8); Alk Phos 80 U/L (50-136); Anion Gap 4 mmol/L (6-16); Aspartate Aminotrans (AST/SGOT 16 U/L (12-37); Bilirubin, Total 0.6 mg/dL (0.1-1.0); Blood Urea Nitrogen 23 mg/dL (8-24); Bun/Creatinine Ratio 24.5 (12.0-20.0); CO2, Blood 31 mmol/L (21-32); Calcium, Blood 9.1 mg/dL (8.5-10.1); Chloride, Blood 103 mmol/L (98-108); Creatinine, Blood 0.94 mg/dL (0.40-1.00); Globulin, Blood 3.4 g/dL (2.2-4.0); Glomerular Filtration Rate >60 (60-); Glucose, Blood 105 mg/dL (70-99); Potassium, Blood 3.6 mmol/L (3.5-5.5); Sodium, Blood 138 mmol/L (136-145)
== END 2021-01-30 12:09 | disposition home or self-care (01) ==
LOC: ATC 00:21
PROVIDERS: Internal Medicine Rheumatology
DX: L40.50 Arthropathic psoriasis, unspecified (principal); M79.7 Fibromyalgia; G25.81 Restless legs syndrome; K21.9 Gastro-esophageal reflux disease without esophagitis; F17.200 Nicotine dependence, unspecified, uncomplicated; I10 Essential (primary) hypertension; I25.119 Atherosclerotic heart disease of native coronary artery with unspecified angina pectoris; K51.90 Ulcerative colitis, unspecified, without complications; L73.2 Hidradenitis suppurativa; Z95.5 Presence of coronary angioplasty implant and graft; Z86.73 Personal history of transient ischemic attack (TIA), and cerebral infarction without residual deficits; Z88.1 Allergy status to other antibiotic agents; Z88.5 Allergy status to narcotic agent
CPT/HCPCS: 80053; 85025; 96413; 96415; J1642; J1745; J7050

== ENCOUNTER 2021-03-08 11:23 | Emergency (ER) | payer MEDICARE, SELFPAY ==
[~2021-03-08] VITALS: Ht 160 cm; Wt 90.7 kg
[2021-03-08 13:44] LABS: BASOPHILS ABSOLUTE AUTO 0.06 K/mm3 (0.00-0.23); BASOPHILS PERCENT AUTO 0 % (0-2); EOSINOPHILS ABSOLUTE AUTO 0.44 K/mm3 (0.00-0.68); EOSINOPHILS PERCENT AUTO 3 % (0-6); Hematocrit 38.5 % (33.0-51.0); Hemoglobin 13.1 g/dL (11.5-16.0); IMMATURE GRAN ABSOLUTE AUTO 0.07 K/mm3 (0.00-0.10); IMMATURE GRAN PERCENT AUTO 1 % (0-1); LYMPHOCYTES ABSOLUTE AUTO 2.44 K/mm3 (0.84-5.20); LYMPHOCYTES PERCENT AUTO 17 % (21-46); MONOCYTES PERCENT AUTO 4 % (4-13); Mean Corpuscular HGB 32.3 pg (26.0-34.0); Mean Corpuscular Volume 95 fL (80-100); Mean Platelet Volume 9.4 fL (9.1-12.4); NEUTROPHILS ABSOLUTE AUTO 11.02 K/mm3 (1.96-9.15); NEUTROPHILS PERCENT AUTO 75 % (41-73); Platelet Count 203 K/mm3 (150-400); RDW Coefficient Variation 12.7 % (11.7-14.2); RDW Standard Deviation 44.9 fL (35.1-46.3); Red Blood Cell Count 4.05 M/mm3 (3.80-5.20); White Blood Cell Count 14.63 K/mm3 (4.00-11.30)
[2021-03-08 14:02] LABS: Alanine Aminotransfer (ALT/SGP 23 U/L (12-78); Albumin, Blood 3.5 g/dL (3.4-5.0); Alk Phos 82 U/L (50-136); Anion Gap 5 mmol/L (6-16); Aspartate Aminotrans (AST/SGOT 15 U/L (12-37); Bilirubin, Total 0.4 mg/dL (0.1-1.0); Blood Urea Nitrogen 17 mg/dL (8-24); CO2, Blood 30 mmol/L (21-32); Chloride, Blood 105 mmol/L (98-108); Creatinine, Blood 0.85 mg/dL (0.40-1.00); Globulin, Blood 3.6 g/dL (2.2-4.0); Glomerular Filtration Rate >60 (60-); Glucose, Blood 105 mg/dL (70-99); Potassium, Blood 3.9 mmol/L (3.5-5.5); Sodium, Blood 140 mmol/L (136-145); Total Protein, Blood 7.1 g/dL (6.4-8.2)
[2021-03-08 16:44] LABS: Source, Urine Clean Catch
[2021-03-08 17:16] LABS: Appearance, Urine Clear (Clear); Bilirubin, Urine Neg (Neg); Blood, Urine 5+ (Neg); Glucose Qualitative, Urine Neg (Neg); Ketones, Urine Neg (Neg); Leukocyte Esterase, Urine Neg (Neg); Nitrite, Urine Neg (Neg); Protein, Urine Neg (Neg); Specific Gravity, Urine 1.005 (1.003-1.022); Urobilinogen, Urine NORM (Normal)
[2021-03-08 17:37] LABS: Color, Urine Pale Yellow (P-Yellow)
[2021-03-08 17:38] LABS: Bacteria Few /hpf; Red Blood Cells, Urine 25-50 /hpf (0-2); Squamous Epithelial Cells Rare /hpf (Few); White Blood Cells, Urine Rare /hpf (0-5)
[2021-03-09] MEDS ORDERED: AMOCLA875 PO (09:10)
== END 2021-03-08 17:00 | disposition home or self-care (01) ==
LOC: ER 11:23
PROVIDERS: Physician Assistant
DX: K57.32 Diverticulitis of large intestine without perforation or abscess without bleeding (principal); E78.5 Hyperlipidemia, unspecified; J44.9 Chronic obstructive pulmonary disease, unspecified; I10 Essential (primary) hypertension; F17.210 Nicotine dependence, cigarettes, uncomplicated; Z91.040 Latex allergy status; Z88.5 Allergy status to narcotic agent; Z91.048 Other nonmedicinal substance allergy status; Z88.2 Allergy status to sulfonamides; Z88.1 Allergy status to other antibiotic agents; Z88.8 Allergy status to other drugs, medicaments and biological substances
CPT/HCPCS: 74177; 80053; 81001; 85025; 96374-59; 96375; 99284-25; A9270; J1642; J1885; Q9967

== ENCOUNTER 2021-03-13 00:30 | Day surgery (SDC) | payer MEDICARE, SELFPAY | END 2021-03-13 11:25 | disposition home or self-care (01) | LOC: ATC 00:30 | DX: L40.50 Arthropathic psoriasis, unspecified (principal); I10 Essential (primary) hypertension; I25.10 Atherosclerotic heart disease of native coronary artery without angina pectoris; Z86.73 Personal history of transient ischemic attack (TIA), and cerebral infarction without residual deficits; Z95.5 Presence of coronary angioplasty implant and graft | CPT/HCPCS: 96413; 96415; J1642; J1745; J7050 ==

== ENCOUNTER → 2021-03-13 | Outpatient (CLI) | payer MEDICARE, OTHER ==
[~2021-03-13] MED LIST changes: +AMOCLA875 PO
[2021-03-13 12:58] LABS: Source, Urine Clean Catch
[2021-03-13 18:01] LABS: Bilirubin, Urine Neg (Neg); Blood, Urine 5+ (Neg); Color, Urine Yellow (P-Yellow); Glucose Qualitative, Urine Neg (Neg); Ketones, Urine Neg (Neg); Leukocyte Esterase, Urine Neg (Neg); Nitrite, Urine Neg (Neg); Protein, Urine 1+ (Neg); Urobilinogen, Urine NORM (Normal)
[2021-03-13 18:13] LABS: Appearance, Urine Hazy (Clear)
[2021-03-13 18:16] LABS: Bacteria Rare /hpf; Red Blood Cells, Urine 25-50 /hpf (0-2); Squamous Epithelial Cells Few /hpf (Few); White Blood Cells, Urine 0-2 /hpf (0-5)
== END | disposition home or self-care (01) ==
LOC: LAB 12:56 → LAB SHORT 12:56
PROVIDERS: Nurse Practitioner Family
DX: R31.9 Hematuria, unspecified (principal)
CPT/HCPCS: 81001

== ENCOUNTER 2021-04-25 03:28 | Day surgery (SDC) | payer MEDICARE ==
[~2021-04-25] VITALS: Wt 91.9 kg
[2021-04-25 11:12] LABS: BASOPHILS PERCENT AUTO 1 % (0-2); EOSINOPHILS ABSOLUTE AUTO 0.95 K/mm3 (0.00-0.68); EOSINOPHILS PERCENT AUTO 7 % (0-6); Hematocrit 39.9 % (33.0-51.0); Hemoglobin 13.3 g/dL (11.5-16.0); IMMATURE GRAN ABSOLUTE AUTO 0.05 K/mm3 (0.00-0.10); IMMATURE GRAN PERCENT AUTO 0 % (0-1); LYMPHOCYTES ABSOLUTE AUTO 2.73 K/mm3 (0.84-5.20); LYMPHOCYTES PERCENT AUTO 21 % (21-46); MONOCYTES ABSOLUTE AUTO 0.52 K/mm3 (0.16-1.47); MONOCYTES PERCENT AUTO 4 % (4-13); Mean Corpuscular HGB Conc 33.3 g/dL (31.5-36.5); Mean Corpuscular Volume 96 fL (80-100); Mean Platelet Volume 9.9 fL (9.1-12.4); NEUTROPHILS ABSOLUTE AUTO 8.68 K/mm3 (1.96-9.15); NEUTROPHILS PERCENT AUTO 67 % (41-73); Platelet Count 211 K/mm3 (150-400); RDW Coefficient Variation 12.7 % (11.7-14.2); RDW Standard Deviation 44.7 fL (35.1-46.3); Red Blood Cell Count 4.16 M/mm3 (3.80-5.20); White Blood Cell Count 13.03 K/mm3 (4.00-11.30)
[2021-04-25 11:22] LABS: Albumin, Blood 3.5 g/dL (3.4-5.0); Bilirubin, Total 0.4 mg/dL (0.1-1.0); Bun/Creatinine Ratio 18.1 (12.0-20.0); Calcium, Blood 8.6 mg/dL (8.5-10.1); Creatinine, Blood 1.16 mg/dL (0.40-1.00); Globulin, Blood 3.4 g/dL (2.2-4.0); Potassium, Blood 3.9 mmol/L (3.5-5.5); Total Protein, Blood 6.9 g/dL (6.4-8.2)
== END 2021-04-25 10:55 | disposition home or self-care (01) ==
LOC: ATC 03:28
PROVIDERS: Internal Medicine Rheumatology
DX: L40.50 Arthropathic psoriasis, unspecified (principal)
CPT/HCPCS: 80053; 85025; 96413; 96415; J1642; J1745; J7050

== ENCOUNTER 2021-06-07 02:17 | Day surgery (SDC) | payer MEDICARE, OTHER | END 2021-06-07 11:44 | disposition home or self-care (01) | LOC: ATC 02:17 | DX: L40.50 Arthropathic psoriasis, unspecified (principal); I10 Essential (primary) hypertension | CPT/HCPCS: 96413; 96415; J1642; J1745; J7050 ==

== ENCOUNTER 2021-10-10 05:29 | Day surgery (SDC) | payer MEDICARE ==
--- NOTE | 2021-10-09 16:32 | NUR ---
PT TO COME BACK 10/10/21 FOR [facility] MIXED WRONG DOSE. PT STATES SHE WANTED TO TAKE HER MEDIPORT NEEDLE OUT. LINE DISCONTINUED AND FLUSHED WITH HEPARIN 500U IV.
[~2021-10-10] VITALS: Wt 95.5 kg
== END 2021-10-10 11:20 | disposition home or self-care (01) ==
LOC: ATC 05:29
DX: L40.50 Arthropathic psoriasis, unspecified (principal); M79.7 Fibromyalgia; I10 Essential (primary) hypertension; I25.10 Atherosclerotic heart disease of native coronary artery without angina pectoris; Z95.5 Presence of coronary angioplasty implant and graft
CPT/HCPCS: J1642; J7050; Q5104

== ENCOUNTER 2021-10-19 10:03 | Day surgery (SDC) | payer MEDICARE ==
[~2021-10-19] VITALS: Ht 160 cm; Wt 93.3 kg
[2021-10-19] MEDS ORDERED: Aspir 8181 MG (10:46)
== END 2021-10-19 14:05 | disposition home or self-care (01) ==
LOC: ORSCSDS 10:03
PROVIDERS: Student in an Organized Health Care Education/Training Program
PROC: 0DBN8ZX Excision of Sigmoid Colon, Via Natural or Artificial Opening Endoscopic, Diagnostic (ICD-10-PCS; principal; 2021-10-19 11:45)
PROC: 0DBK8ZX Excision of Ascending Colon, Via Natural or Artificial Opening Endoscopic, Diagnostic (ICD-10-PCS; principal; 2021-10-19 11:45)
PROC: 0DBH8ZX Excision of Cecum, Via Natural or Artificial Opening Endoscopic, Diagnostic (ICD-10-PCS; principal; 2021-10-19 11:45)
DX: K92.1 Melena (principal); D12.0 Benign neoplasm of cecum; D12.2 Benign neoplasm of ascending colon; D12.5 Benign neoplasm of sigmoid colon; K57.30 Diverticulosis of large intestine without perforation or abscess without bleeding; K64.8 Other hemorrhoids; K92.89 Other specified diseases of the digestive system; I10 Essential (primary) hypertension; I25.10 Atherosclerotic heart disease of native coronary artery without angina pectoris; J44.9 Chronic obstructive pulmonary disease, unspecified; G47.33 Obstructive sleep apnea (adult) (pediatric); F17.210 Nicotine dependence, cigarettes, uncomplicated; Z86.718 Personal history of other venous thrombosis and embolism; Z79.01 Long term (current) use of anticoagulants; Z79.82 Long term (current) use of aspirin; Z79.899 Other long term (current) drug therapy
CPT/HCPCS: 88305; J2704; J7120

== ENCOUNTER 2021-11-20 01:31 | Day surgery (SDC) | payer MEDICARE ==
[~2021-11-20 01:31] MED LIST changes: +Aspir 8181 MG
[2021-11-20] MEDS ORDERED: RENFLEXIS100 M4 IV (13:47)
--- NOTE | 2021-11-20 14:51 | NUR ---
CALL TO DR. NICK OFFICE AND DISCUSSED WITH RAVI RUBIO THAT WE DID NOT HAVE ENOUGH RENFLEXIX FOR HER DOSE. COULD WE SUB IEFLECTRA? NO THEY STATED THE PT COULD NOT USE INFLECTRA. PT WILL BE MOVED TO [facility].
--- NOTE | 2021-11-20 15:09 | NUR ---
LAB WORK DRAWN FROM Reji BENOIT
[2021-11-20 15:32] LABS: BASOPHILS ABSOLUTE AUTO 0.04 K/mm3 (0.00-0.23); BASOPHILS PERCENT AUTO 0 % (0-2); EOSINOPHILS ABSOLUTE AUTO 0.13 K/mm3 (0.00-0.68); EOSINOPHILS PERCENT AUTO 1 % (0-6); Hematocrit 40.8 % (33.0-51.0); Hemoglobin 13.7 g/dL (11.5-16.0); IMMATURE GRAN ABSOLUTE AUTO 0.04 K/mm3 (0.00-0.10); IMMATURE GRAN PERCENT AUTO 0 % (0-1); LYMPHOCYTES ABSOLUTE AUTO 2.71 K/mm3 (0.84-5.20); LYMPHOCYTES PERCENT AUTO 23 % (21-46); MONOCYTES ABSOLUTE AUTO 0.43 K/mm3 (0.16-1.47); MONOCYTES PERCENT AUTO 4 % (4-13); Mean Corpuscular HGB 32.3 pg (26.0-34.0); Mean Corpuscular HGB Conc 33.6 g/dL (31.5-36.5); Mean Corpuscular Volume 96 fL (80-100); Mean Platelet Volume 9.7 fL (9.1-12.4); NEUTROPHILS ABSOLUTE AUTO 8.49 K/mm3 (1.96-9.15); NEUTROPHILS PERCENT AUTO 72 % (41-73); Platelet Count 213 K/mm3 (150-400); RDW Coefficient Variation 12.8 % (11.7-14.2); RDW Standard Deviation 45.1 fL (35.1-46.3); Red Blood Cell Count 4.24 M/mm3 (3.80-5.20); White Blood Cell Count 11.84 K/mm3 (4.00-11.30)
[2021-11-20 15:57] LABS: C-REACTIVE PROTEIN, EXT RANGE <0.290 mg/dL (0.000-0.300)
[2021-11-20 16:03] LABS: Alanine Aminotransfer (ALT/SGP 25 U/L (12-78); Albumin, Blood 3.6 g/dL (3.4-5.0); Albumin/Globulin Ratio 1.1 (0.8-1.8); Alk Phos 73 U/L (50-136); Anion Gap 5 mmol/L (6-16); Aspartate Aminotrans (AST/SGOT 11 U/L (12-37); Bilirubin, Total 0.5 mg/dL (0.1-1.0); Blood Urea Nitrogen 26 mg/dL (8-24); Bun/Creatinine Ratio 23.6 (12.0-20.0); CO2, Blood 28 mmol/L (21-32); Calcium, Blood 9.1 mg/dL (8.5-10.1); Chloride, Blood 105 mmol/L (98-108); Globulin, Blood 3.4 g/dL (2.2-4.0); Glomerular Filtration Rate 51 (60-); Glucose, Blood 195 mg/dL (70-99); Potassium, Blood 3.6 mmol/L (3.5-5.5); Sodium, Blood 138 mmol/L (136-145)
== END 2021-11-20 15:15 | disposition home or self-care (01) ==
LOC: ATC 01:31
PROVIDERS: Internal Medicine Rheumatology
DX: L40.50 Arthropathic psoriasis, unspecified (principal); I10 Essential (primary) hypertension
CPT/HCPCS: 80053; 85025; 85651; 86140; J1642; J7040; Q5104

== ENCOUNTER → 2022-01-08 | Outpatient (CLI) | payer MEDICARE ==
[~2022-01-08] MED LIST changes: +RENFLEXIS100 M4 IV
== END | disposition home or self-care (01) ==
LOC: LAB SHORT 12:58 → LAB 12:58
DX: L73.9 Follicular disorder, unspecified (principal)
CPT/HCPCS: 87070; 87075; 87205

== ENCOUNTER 2022-02-12 00:20 | Day surgery (SDC) | payer MEDICARE, OTHER ==
[2022-02-12 14:09] LABS: BASOPHILS ABSOLUTE AUTO 0.07 K/mm3 (0.00-0.23); BASOPHILS PERCENT AUTO 1 % (0-2); EOSINOPHILS ABSOLUTE AUTO 0.57 K/mm3 (0.00-0.68); EOSINOPHILS PERCENT AUTO 4 % (0-6); Hematocrit 38.5 % (33.0-51.0); IMMATURE GRAN ABSOLUTE AUTO 0.06 K/mm3 (0.00-0.10); IMMATURE GRAN PERCENT AUTO 0 % (0-1); LYMPHOCYTES PERCENT AUTO 21 % (21-46); MONOCYTES ABSOLUTE AUTO 0.47 K/mm3 (0.16-1.47); MONOCYTES PERCENT AUTO 3 % (4-13); Mean Corpuscular HGB 32.1 pg (26.0-34.0); Mean Corpuscular HGB Conc 33.8 g/dL (31.5-36.5); Mean Corpuscular Volume 95 fL (80-100); Mean Platelet Volume 10.1 fL (9.1-12.4); NEUTROPHILS ABSOLUTE AUTO 9.57 K/mm3 (1.96-9.15); NEUTROPHILS PERCENT AUTO 70 % (41-73); Platelet Count 201 K/mm3 (150-400); RDW Coefficient Variation 12.4 % (11.7-14.2); RDW Standard Deviation 43.1 fL (35.1-46.3); Red Blood Cell Count 4.05 M/mm3 (3.80-5.20); White Blood Cell Count 13.64 K/mm3 (4.00-11.30)
[2022-02-12 14:23] LABS: C-REACTIVE PROTEIN, EXT RANGE 0.425 mg/dL (0.000-0.300)
[2022-02-12 14:36] LABS: Albumin, Blood 3.5 g/dL (3.4-5.0); Albumin/Globulin Ratio 1.1 (0.8-1.8); Bilirubin, Total 0.4 mg/dL (0.1-1.0); Bun/Creatinine Ratio 19.6 (12.0-20.0); Calcium, Blood 9.6 mg/dL (8.5-10.1); Creatinine, Blood 0.97 mg/dL (0.40-1.00); Globulin, Blood 3.3 g/dL (2.2-4.0); Potassium, Blood 3.6 mmol/L (3.5-5.5); Total Protein, Blood 6.8 g/dL (6.4-8.2)
== END 2022-02-12 16:05 | disposition home or self-care (01) ==
LOC: ATC 00:20
PROVIDERS: Internal Medicine Rheumatology
DX: L40.50 Arthropathic psoriasis, unspecified (principal); Z88.5 Allergy status to narcotic agent; Z88.1 Allergy status to other antibiotic agents
CPT/HCPCS: 80053; 85025; 85651; 86140; 96413; 96415; J1642; J7050; Q5104

== ENCOUNTER 2022-03-26 01:14 | Day surgery (SDC) | payer MEDICARE ==
[~2022-03-26] VITALS: Wt 94.2 kg
== END 2022-03-26 16:17 | disposition home or self-care (01) ==
LOC: ATC 01:14
DX: L40.50 Arthropathic psoriasis, unspecified (principal); I10 Essential (primary) hypertension; Z86.73 Personal history of transient ischemic attack (TIA), and cerebral infarction without residual deficits
CPT/HCPCS: 96413; 96415; J1642; J7050; Q5104

== ENCOUNTER 2022-05-23 09:18 | Day surgery (SDC) | payer MEDICARE ==
[~2022-05-23] VITALS: Ht 160 cm; Wt 93.0 kg
--- NOTE | 2022-05-23 11:33 | NUR ---
05/23/22 1133 Bert Kirk 1124 timeout and site check for right ISB WITH DR CORONADO
--- NOTE | 2022-05-23 12:07 | NUR ---
05/23/22 1207 SHIRA CASTELLON 0.25MG OF EPI ADDED TO 50MLS OF NORMAL SALINE 0.9% TO CREATE A SOLUTION OF NS 0.9% WITH EPI 1:200,000. 10MLS OF SOLUTION POURED ONTO STERILE FIELD FOR USE DURING CASE.
--- NOTE | 2022-05-23 13:26 | NUR ---
05/23/22 1326 KJ ESPINAL PT ON 10L O2 VIA FACETENT. 98%. WILL DO TRIAL ON 5L
--- NOTE | 2022-05-23 15:47 | NUR ---
05/23/22 1547 Deangelo Brady PT'S PERSCRIPTION HAD NOT BEEN DELIVERED ELECTRONICALLY TO [facility] BY TIME OF DISCHARGE, AND SHE REPORTED 7/10 PAIN . PT STATED THAT SHE WISHED TO LEAVE ANYWAY. DR. ARRIAZA WAS NOTIFIED, AND HER OFFICE WAS CALLED SEVERAL TIMES. SHIPPING COORDINATOR AT DR. ARRIAZA OFFICE STATED THAT PERSCRIPTION HAD BEEN SENT AND WOULD BE RESENT. PT REFUSED IV PAIN MEDICATION, BECAUSE SHE DID NOT WANT TO DELAY HER DISCHARGE.
== END 2022-05-23 15:20 | disposition home or self-care (01) ==
LOC: ORSCSDS 09:18
PROVIDERS: Orthopaedic Surgery
PROC: 0PB94ZZ Excision of Right Clavicle, Percutaneous Endoscopic Approach (ICD-10-PCS; principal; 2022-05-23 11:00)
PROC: 0RBJ4ZZ Excision of Right Shoulder Joint, Percutaneous Endoscopic Approach (ICD-10-PCS; principal; 2022-05-23 11:00)
DX: M13.811 Other specified arthritis, right shoulder (principal); M75.51 Bursitis of right shoulder; M75.41 Impingement syndrome of right shoulder; S43.431A Superior glenoid labrum lesion of right shoulder, initial encounter; I10 Essential (primary) hypertension; I25.10 Atherosclerotic heart disease of native coronary artery without angina pectoris; Z86.718 Personal history of other venous thrombosis and embolism; Z79.01 Long term (current) use of anticoagulants; G47.33 Obstructive sleep apnea (adult) (pediatric); Z86.73 Personal history of transient ischemic attack (TIA), and cerebral infarction without residual deficits; Z79.899 Other long term (current) drug therapy; K21.9 Gastro-esophageal reflux disease without esophagitis; E66.9 Obesity, unspecified; Z68.36 Body mass index [BMI] 36.0-36.9, adult
CPT/HCPCS: J0171; J0690; J1100; J2250; J2405; J2704; J2795; J3010; J7120

== ENCOUNTER 2022-06-18 02:00 | Day surgery (SDC) | payer MEDICARE, OTHER | END 2022-06-18 15:58 | disposition home or self-care (01) | LOC: ATC 02:00 | DX: L40.50 Arthropathic psoriasis, unspecified (principal); Z90.711 Acquired absence of uterus with remaining cervical stump; Z87.891 Personal history of nicotine dependence; I10 Essential (primary) hypertension; Z88.5 Allergy status to narcotic agent; Z88.2 Allergy status to sulfonamides; Z88.8 Allergy status to other drugs, medicaments and biological substances; Z88.1 Allergy status to other antibiotic agents; Z91.040 Latex allergy status | CPT/HCPCS: 96413; 96415; J1642; J7050; Q5104 ==

== ENCOUNTER 2022-09-13 01:59 | Day surgery (SDC) | payer MEDICARE ==
[~2022-09-13] VITALS: Wt 94.1 kg
[2022-09-13 15:27] LABS: BASOPHILS ABSOLUTE AUTO 0.06 K/mm3 (0.00-0.23); BASOPHILS PERCENT AUTO 1 % (0-2); EOSINOPHILS ABSOLUTE AUTO 0.48 K/mm3 (0.00-0.68); EOSINOPHILS PERCENT AUTO 4 % (0-6); Hematocrit 36.3 % (33.0-51.0); Hemoglobin 12.4 g/dL (11.5-16.0); IMMATURE GRAN ABSOLUTE AUTO 0.04 K/mm3 (0.00-0.10); IMMATURE GRAN PERCENT AUTO 0 % (0-1); LYMPHOCYTES PERCENT AUTO 32 % (21-46); MONOCYTES ABSOLUTE AUTO 0.61 K/mm3 (0.16-1.47); MONOCYTES PERCENT AUTO 6 % (4-13); Mean Corpuscular HGB 31.9 pg (26.0-34.0); Mean Corpuscular HGB Conc 34.2 g/dL (31.5-36.5); Mean Corpuscular Volume 93 fL (80-100); Mean Platelet Volume 10.8 fL (9.1-12.4); NEUTROPHILS ABSOLUTE AUTO 6.24 K/mm3 (1.96-9.15); NEUTROPHILS PERCENT AUTO 57 % (41-73); Platelet Count 208 K/mm3 (150-400); RDW Coefficient Variation 12.9 % (11.7-14.2); RDW Standard Deviation 44.2 fL (35.1-46.3); Red Blood Cell Count 3.89 M/mm3 (3.80-5.20); White Blood Cell Count 10.93 K/mm3 (4.00-11.30)
[2022-09-13 15:54] LABS: Albumin, Blood 3.4 g/dL (3.4-5.0); Bilirubin, Total 0.4 mg/dL (0.1-1.0); Bun/Creatinine Ratio 19.4 (12.0-20.0); C-REACTIVE PROTEIN, EXT RANGE 0.545 mg/dL (0.000-0.300); Creatinine, Blood 1.03 mg/dL (0.40-1.00); Globulin, Blood 3.4 g/dL (2.2-4.0); Potassium, Blood 3.5 mmol/L (3.5-5.5); Total Protein, Blood 6.8 g/dL (6.4-8.2)
--- NOTE | 2022-09-13 16:30 | NUR ---
LABS FAXED TO DR ZAPATA
== END 2022-09-13 17:27 | disposition home or self-care (01) ==
LOC: ATC 01:59
PROVIDERS: Internal Medicine Rheumatology
DX: L40.50 Arthropathic psoriasis, unspecified (principal); Z88.5 Allergy status to narcotic agent; Z88.1 Allergy status to other antibiotic agents
CPT/HCPCS: 80053; 85025; 85651; 86140; 96413; 96415; J1642; J7050; Q5104

== ENCOUNTER 2022-10-23 01:46 | Day surgery (SDC) | payer MEDICARE | END 2022-10-23 16:13 | disposition home or self-care (01) | LOC: ATC 01:46 | DX: L40.50 Arthropathic psoriasis, unspecified (principal); I25.119 Atherosclerotic heart disease of native coronary artery with unspecified angina pectoris; Z88.1 Allergy status to other antibiotic agents; Z88.5 Allergy status to narcotic agent | CPT/HCPCS: 96413; 96415; J1642; J7050; Q5104 ==

== ENCOUNTER 2022-12-11 01:42 | Day surgery (SDC) | payer MEDICARE ==
[2022-12-11 14:07] VITALS: BP 119/66
[2022-12-11 15:10] LABS: BASOPHILS ABSOLUTE AUTO 0.08 K/mm3 (0.00-0.23); BASOPHILS PERCENT AUTO 1 % (0-2); EOSINOPHILS ABSOLUTE AUTO 0.53 K/mm3 (0.00-0.68); EOSINOPHILS PERCENT AUTO 5 % (0-6); Hematocrit 35.8 % (33.0-51.0); Hemoglobin 12.1 g/dL (11.5-16.0); IMMATURE GRAN ABSOLUTE AUTO 0.04 K/mm3 (0.00-0.10); IMMATURE GRAN PERCENT AUTO 0 % (0-1); LYMPHOCYTES ABSOLUTE AUTO 3.03 K/mm3 (0.84-5.20); LYMPHOCYTES PERCENT AUTO 26 % (21-46); MONOCYTES ABSOLUTE AUTO 0.52 K/mm3 (0.16-1.47); MONOCYTES PERCENT AUTO 4 % (4-13); Mean Corpuscular HGB 31.8 pg (26.0-34.0); Mean Corpuscular HGB Conc 33.8 g/dL (31.5-36.5); Mean Corpuscular Volume 94 fL (80-100); Mean Platelet Volume 10.9 fL (9.1-12.4); NEUTROPHILS ABSOLUTE AUTO 7.58 K/mm3 (1.96-9.15); NEUTROPHILS PERCENT AUTO 64 % (41-73); Platelet Count 198 K/mm3 (150-400); RDW Coefficient Variation 13.4 % (11.7-14.2); RDW Standard Deviation 45.2 fL (35.1-46.3); White Blood Cell Count 11.78 K/mm3 (4.00-11.30)
[2022-12-11 15:29] LABS: Albumin, Blood 3.4 g/dL (3.4-5.0); Albumin/Globulin Ratio 1.1 (0.8-1.8); Bilirubin, Total 0.3 mg/dL (0.1-1.0); C-REACTIVE PROTEIN, EXT RANGE 0.386 mg/dL (0.000-0.300); Creatinine, Blood 1.04 mg/dL (0.40-1.00); Globulin, Blood 3.2 g/dL (2.2-4.0); Potassium, Blood 3.8 mmol/L (3.5-5.5); Total Protein, Blood 6.6 g/dL (6.4-8.2)
== END 2022-12-11 16:45 | disposition home or self-care (01) ==
LOC: ATC 01:42
PROVIDERS: Internal Medicine Rheumatology
DX: L40.50 Arthropathic psoriasis, unspecified (principal)
CPT/HCPCS: 80053; 85025; 85651; 86140; 96413; 96415; J1642; J7050; Q5104

== ENCOUNTER 2023-03-05 02:35 | Day surgery (SDC) | payer MEDICARE, OTHER ==
[2023-03-05 13:40] VITALS: BP 128/62
[2023-03-05 14:46] LABS: BASOPHILS ABSOLUTE AUTO 0.07 K/mm3 (0.00-0.23); BASOPHILS PERCENT AUTO 1 % (0-2); EOSINOPHILS ABSOLUTE AUTO 0.54 K/mm3 (0.00-0.68); EOSINOPHILS PERCENT AUTO 4 % (0-6); Hematocrit 36.2 % (33.0-51.0); Hemoglobin 12.2 g/dL (11.5-16.0); IMMATURE GRAN ABSOLUTE AUTO 0.06 K/mm3 (0.00-0.10); IMMATURE GRAN PERCENT AUTO 1 % (0-1); LYMPHOCYTES ABSOLUTE AUTO 2.97 K/mm3 (0.84-5.20); LYMPHOCYTES PERCENT AUTO 23 % (21-46); MONOCYTES ABSOLUTE AUTO 0.41 K/mm3 (0.16-1.47); MONOCYTES PERCENT AUTO 3 % (4-13); Mean Corpuscular HGB 32.2 pg (26.0-34.0); Mean Corpuscular HGB Conc 33.7 g/dL (31.5-36.5); Mean Corpuscular Volume 96 fL (80-100); Mean Platelet Volume 10.9 fL (9.1-12.4); NEUTROPHILS ABSOLUTE AUTO 8.69 K/mm3 (1.96-9.15); NEUTROPHILS PERCENT AUTO 68 % (41-73); Platelet Count 201 K/mm3 (150-400); RDW Coefficient Variation 12.8 % (11.7-14.2); RDW Standard Deviation 44.5 fL (35.1-46.3); Red Blood Cell Count 3.79 M/mm3 (3.80-5.20); White Blood Cell Count 12.74 K/mm3 (4.00-11.30)
[2023-03-05 15:14] LABS: Alanine Aminotransfer (ALT/SGP 23 U/L (12-78); Albumin, Blood 3.4 g/dL (3.4-5.0); Albumin/Globulin Ratio 1.1 (0.8-1.8); Alk Phos 70 U/L (50-136); Anion Gap 5 mmol/L (6-16); Aspartate Aminotrans (AST/SGOT 14 U/L (12-37); Bilirubin, Total 0.3 mg/dL (0.1-1.0); Blood Urea Nitrogen 21 mg/dL (8-24); Bun/Creatinine Ratio 20.8 (12.0-20.0); C-REACTIVE PROTEIN, EXT RANGE <0.290 mg/dL (0.000-0.300); CO2, Blood 28 mmol/L (21-32); Calcium, Blood 8.6 mg/dL (8.5-10.1); Chloride, Blood 108 mmol/L (98-108); Creatinine, Blood 1.01 mg/dL (0.40-1.00); Globulin, Blood 3.2 g/dL (2.2-4.0); Glomerular Filtration Rate 65 (60-); Glucose, Blood 130 mg/dL (70-99); Potassium, Blood 3.8 mmol/L (3.5-5.5); Sodium, Blood 141 mmol/L (136-145); Total Protein, Blood 6.6 g/dL (6.4-8.2)
== END 2023-03-05 16:55 | disposition home or self-care (01) ==
LOC: ATC 02:35
PROVIDERS: Internal Medicine Rheumatology
DX: L40.50 Arthropathic psoriasis, unspecified (principal); I25.10 Atherosclerotic heart disease of native coronary artery without angina pectoris; Z88.5 Allergy status to narcotic agent; Z88.1 Allergy status to other antibiotic agents; Z88.2 Allergy status to sulfonamides; Z79.899 Other long term (current) drug therapy
CPT/HCPCS: 80053; 85025; 85651; 86140; 96413; 96415; J1642; J7050; Q5104

== ENCOUNTER 2023-04-16 02:03 | Day surgery (SDC) | payer MEDICARE ==
[2023-04-16 13:28] VITALS: BP 133/68
[2023-04-16 14:25] LABS: BASOPHILS ABSOLUTE AUTO 0.06 K/mm3 (0.00-0.23); BASOPHILS PERCENT AUTO 1 % (0-2); EOSINOPHILS ABSOLUTE AUTO 0.39 K/mm3 (0.00-0.68); EOSINOPHILS PERCENT AUTO 3 % (0-6); Hematocrit 35.8 % (33.0-51.0); IMMATURE GRAN ABSOLUTE AUTO 0.03 K/mm3 (0.00-0.10); IMMATURE GRAN PERCENT AUTO 0 % (0-1); LYMPHOCYTES ABSOLUTE AUTO 3.27 K/mm3 (0.84-5.20); LYMPHOCYTES PERCENT AUTO 27 % (21-46); MONOCYTES ABSOLUTE AUTO 0.46 K/mm3 (0.16-1.47); MONOCYTES PERCENT AUTO 4 % (4-13); Mean Corpuscular HGB Conc 33.5 g/dL (31.5-36.5); Mean Corpuscular Volume 96 fL (80-100); Mean Platelet Volume 10.6 fL (9.1-12.4); NEUTROPHILS ABSOLUTE AUTO 7.77 K/mm3 (1.96-9.15); NEUTROPHILS PERCENT AUTO 65 % (41-73); Platelet Count 210 K/mm3 (150-400); RDW Coefficient Variation 12.7 % (11.7-14.2); RDW Standard Deviation 44.3 fL (35.1-46.3); Red Blood Cell Count 3.75 M/mm3 (3.80-5.20); White Blood Cell Count 11.98 K/mm3 (4.00-11.30)
[2023-04-16 14:39] LABS: C-REACTIVE PROTEIN, EXT RANGE <0.290 mg/dL (0.000-0.300)
[2023-04-16 14:41] LABS: Alanine Aminotransfer (ALT/SGP 20 U/L (12-78); Albumin, Blood 3.7 g/dL (3.4-5.0); Albumin/Globulin Ratio 1.2 (0.8-1.8); Alk Phos 68 U/L (50-136); Anion Gap 4 mmol/L (6-16); Aspartate Aminotrans (AST/SGOT 16 U/L (12-37); Bilirubin, Total 0.4 mg/dL (0.1-1.0); Blood Urea Nitrogen 18 mg/dL (8-24); Bun/Creatinine Ratio 14.8 (12.0-20.0); CO2, Blood 30 mmol/L (21-32); Calcium, Blood 9.2 mg/dL (8.5-10.1); Chloride, Blood 105 mmol/L (98-108); Creatinine, Blood 1.22 mg/dL (0.40-1.00); Globulin, Blood 3.1 g/dL (2.2-4.0); Glomerular Filtration Rate 52 (60-); Glucose, Blood 144 mg/dL (70-99); Potassium, Blood 3.5 mmol/L (3.5-5.5); Sodium, Blood 139 mmol/L (136-145); Total Protein, Blood 6.8 g/dL (6.4-8.2)
== END 2023-04-16 16:21 | disposition home or self-care (01) ==
LOC: ATC 02:03
PROVIDERS: Internal Medicine Rheumatology
DX: L40.50 Arthropathic psoriasis, unspecified (principal); I25.10 Atherosclerotic heart disease of native coronary artery without angina pectoris; Z86.73 Personal history of transient ischemic attack (TIA), and cerebral infarction without residual deficits
CPT/HCPCS: 80053; 85025; 85651; 86140; 96413; 96415; J1642; J7050; Q5104

== ENCOUNTER 2023-05-28 00:17 | Day surgery (SDC) | payer MEDICARE ==
[2023-05-28 13:40] VITALS: BP 136/63
== END 2023-05-28 16:41 | disposition home or self-care (01) ==
LOC: ATC 00:17
DX: L40.50 Arthropathic psoriasis, unspecified (principal); I25.10 Atherosclerotic heart disease of native coronary artery without angina pectoris; Z86.73 Personal history of transient ischemic attack (TIA), and cerebral infarction without residual deficits
CPT/HCPCS: J1642; J7050; Q5104

== ENCOUNTER → 2023-06-20 | Outpatient (CLI) | payer MEDICARE | LOC: LAB SHORT 12:00 → LAB 12:00 | DX: B37.2 Candidiasis of skin and nail (principal) | CPT/HCPCS: 87102 ==

== ENCOUNTER 2023-07-10 02:01 | Day surgery (SDC) | payer MEDICARE, OTHER ==
[2023-07-10 14:03] VITALS: BP 134/64
[2023-07-10 14:14] LABS: BASOPHILS ABSOLUTE AUTO 0.07 K/mm3 (0.00-0.23); BASOPHILS PERCENT AUTO 1 % (0-2); EOSINOPHILS ABSOLUTE AUTO 0.47 K/mm3 (0.00-0.68); EOSINOPHILS PERCENT AUTO 4 % (0-6); Hematocrit 35.9 % (33.0-51.0); IMMATURE GRAN ABSOLUTE AUTO 0.03 K/mm3 (0.00-0.10); IMMATURE GRAN PERCENT AUTO 0 % (0-1); LYMPHOCYTES ABSOLUTE AUTO 3.24 K/mm3 (0.84-5.20); LYMPHOCYTES PERCENT AUTO 29 % (21-46); MONOCYTES ABSOLUTE AUTO 0.56 K/mm3 (0.16-1.47); MONOCYTES PERCENT AUTO 5 % (4-13); Mean Corpuscular HGB 31.7 pg (26.0-34.0); Mean Corpuscular HGB Conc 33.4 g/dL (31.5-36.5); Mean Corpuscular Volume 95 fL (80-100); Mean Platelet Volume 10.2 fL (9.1-12.4); NEUTROPHILS ABSOLUTE AUTO 6.78 K/mm3 (1.96-9.15); NEUTROPHILS PERCENT AUTO 61 % (41-73); Platelet Count 209 K/mm3 (150-400); RDW Coefficient Variation 13.2 % (11.7-14.2); RDW Standard Deviation 45.5 fL (35.1-46.3); Red Blood Cell Count 3.78 M/mm3 (3.80-5.20); White Blood Cell Count 11.15 K/mm3 (4.00-11.30)
[2023-07-10 14:46] LABS: C-REACTIVE PROTEIN, EXT RANGE 0.329 mg/dL (0.000-0.300)
[2023-07-10 14:47] LABS: Albumin, Blood 3.7 g/dL (3.4-5.0); Albumin/Globulin Ratio 1.1 (0.8-1.8); Bilirubin, Total 0.3 mg/dL (0.1-1.0); Bun/Creatinine Ratio 16.3 (12.0-20.0); Calcium, Blood 9.4 mg/dL (8.5-10.1); Creatinine, Blood 1.04 mg/dL (0.40-1.00); Globulin, Blood 3.3 g/dL (2.2-4.0); Potassium, Blood 3.6 mmol/L (3.5-5.5)
== END 2023-07-10 16:58 | disposition home or self-care (01) ==
LOC: ATC 02:01
PROVIDERS: Internal Medicine Rheumatology
DX: L40.50 Arthropathic psoriasis, unspecified (principal); I25.10 Atherosclerotic heart disease of native coronary artery without angina pectoris; Z86.73 Personal history of transient ischemic attack (TIA), and cerebral infarction without residual deficits; Z88.2 Allergy status to sulfonamides; Z88.1 Allergy status to other antibiotic agents; Z88.5 Allergy status to narcotic agent; Z88.8 Allergy status to other drugs, medicaments and biological substances; Z79.899 Other long term (current) drug therapy
CPT/HCPCS: 80053; 85025; 85651; 86140; 96413; 96415; J1642; J7050; Q5104

== ENCOUNTER 2023-08-23 01:10 | Day surgery (SDC) | payer MEDICARE ==
[2023-08-23 14:33] VITALS: BP 116/73
[2023-08-23 15:18] LABS: BASOPHILS ABSOLUTE AUTO 0.07 K/mm3 (0.00-0.23); BASOPHILS PERCENT AUTO 1 % (0-2); EOSINOPHILS ABSOLUTE AUTO 0.35 K/mm3 (0.00-0.68); EOSINOPHILS PERCENT AUTO 3 % (0-6); Hematocrit 38.5 % (33.0-51.0); Hemoglobin 12.8 g/dL (11.5-16.0); IMMATURE GRAN ABSOLUTE AUTO 0.04 K/mm3 (0.00-0.10); IMMATURE GRAN PERCENT AUTO 0 % (0-1); LYMPHOCYTES ABSOLUTE AUTO 2.83 K/mm3 (0.84-5.20); LYMPHOCYTES PERCENT AUTO 24 % (21-46); MONOCYTES ABSOLUTE AUTO 0.44 K/mm3 (0.16-1.47); MONOCYTES PERCENT AUTO 4 % (4-13); Mean Corpuscular HGB 31.2 pg (26.0-34.0); Mean Corpuscular HGB Conc 33.2 g/dL (31.5-36.5); Mean Corpuscular Volume 94 fL (80-100); Mean Platelet Volume 10.8 fL (9.1-12.4); NEUTROPHILS PERCENT AUTO 69 % (41-73); Platelet Count 236 K/mm3 (150-400); RDW Coefficient Variation 13.6 % (11.7-14.2); White Blood Cell Count 11.93 K/mm3 (4.00-11.30)
[2023-08-23 15:31] LABS: Albumin, Blood 3.5 g/dL (3.4-5.0); Albumin/Globulin Ratio 0.9 (0.8-1.8); Bilirubin, Total 0.4 mg/dL (0.1-1.0); Calcium, Blood 9.2 mg/dL (8.5-10.1); Creatinine, Blood 1.07 mg/dL (0.40-1.00); Globulin, Blood 3.7 g/dL (2.2-4.0); Potassium, Blood 3.7 mmol/L (3.5-5.5); Total Protein, Blood 7.2 g/dL (6.4-8.2)
== END 2023-08-23 17:12 | disposition home or self-care (01) ==
LOC: ATC 01:10
PROVIDERS: Internal Medicine Rheumatology
DX: L40.50 Arthropathic psoriasis, unspecified (principal); I25.10 Atherosclerotic heart disease of native coronary artery without angina pectoris; I25.2 Old myocardial infarction; Z88.2 Allergy status to sulfonamides
CPT/HCPCS: 80053; 85025; 96413; 96415; J1642; J7050; Q5104

== ENCOUNTER 2023-10-02 01:11 | Day surgery (SDC) | payer MEDICARE, OTHER ==
[2023-10-02] MEDS ORDERED: NS IV SCH ×2 (06:00→14:25)
[2023-10-02] MEDS ORDERED: INFLIXIMAB DYYB IV SCH (06:00)
[2023-10-02 13:45] VITALS: BP 133/80
[2023-10-02] MEDS ORDERED: INFLIXIMAB ABDA IV SCH (14:25)
== END 2023-10-02 17:05 | disposition home or self-care (01) ==
LOC: ATC 01:11
DX: L40.50 Arthropathic psoriasis, unspecified (principal); Z79.899 Other long term (current) drug therapy
CPT/HCPCS: J1642; J7050; Q5104

== ENCOUNTER 2024-02-04 00:56 | Day surgery (SDC) | payer MEDICARE ==
[2024-02-04] MEDS ORDERED: NS IV SCH (06:00)
[2024-02-04] MEDS ORDERED: INFLIXIMAB ABDA IV SCH (06:00)
[2024-02-04 09:16] VITALS: BP 114/69
[2024-02-04] MEDS ORDERED: RENFLEXIS100 M4 IV (09:40)
[2024-02-04 10:00] LABS: BASOPHILS ABSOLUTE AUTO 0.07 K/mm3 (0.00-0.23); BASOPHILS PERCENT AUTO 1 % (0-2); EOSINOPHILS ABSOLUTE AUTO 0.41 K/mm3 (0.00-0.68); EOSINOPHILS PERCENT AUTO 4 % (0-6); Hematocrit 37.3 % (33.0-51.0); Hemoglobin 12.4 g/dL (11.5-16.0); IMMATURE GRAN ABSOLUTE AUTO 0.05 K/mm3 (0.00-0.10); IMMATURE GRAN PERCENT AUTO 1 % (0-1); LYMPHOCYTES ABSOLUTE AUTO 2.04 K/mm3 (0.84-5.20); LYMPHOCYTES PERCENT AUTO 21 % (21-46); MONOCYTES ABSOLUTE AUTO 0.36 K/mm3 (0.16-1.47); MONOCYTES PERCENT AUTO 4 % (4-13); Mean Corpuscular HGB 30.6 pg (26.0-34.0); Mean Corpuscular HGB Conc 33.2 g/dL (31.5-36.5); Mean Corpuscular Volume 92 fL (80-100); Mean Platelet Volume 10.5 fL (9.1-12.4); NEUTROPHILS ABSOLUTE AUTO 6.74 K/mm3 (1.96-9.15); NEUTROPHILS PERCENT AUTO 70 % (41-73); Platelet Count 222 K/mm3 (150-400); RDW Coefficient Variation 13.2 % (11.7-14.2); RDW Standard Deviation 44.6 fL (35.1-46.3); Red Blood Cell Count 4.05 M/mm3 (3.80-5.20); White Blood Cell Count 9.67 K/mm3 (4.00-11.30)
[2024-02-04 10:14] LABS: Alanine Aminotransfer (ALT/SGP 23 U/L (12-78); Albumin, Blood 3.8 g/dL (3.4-5.0); Albumin/Globulin Ratio 1.1 (0.8-1.8); Alk Phos 79 U/L (50-136); Anion Gap 10 mmol/L (3-11); Aspartate Aminotrans (AST/SGOT 19 U/L (12-37); Bilirubin, Total 0.4 mg/dL (0.1-1.0); Blood Urea Nitrogen 24 mg/dL (8-24); Bun/Creatinine Ratio 19.7 (12.0-20.0); C-REACTIVE PROTEIN, EXT RANGE <0.290 mg/dL (0.000-0.300); CO2, Blood 27 mmol/L (21-32); Calcium, Blood 9.2 mg/dL (8.5-10.1); Chloride, Blood 104 mmol/L (98-108); Creatinine, Blood 1.22 mg/dL (0.40-1.00); Globulin, Blood 3.5 g/dL (2.2-4.0); Glomerular Filtration Rate 52 (60-); Glucose, Blood 140 mg/dL (70-99); Potassium, Blood 3.5 mmol/L (3.5-5.5); Sodium, Blood 137 mmol/L (136-145); Total Protein, Blood 7.3 g/dL (6.4-8.2)
== END 2024-02-04 12:16 | disposition home or self-care (01) ==
LOC: ATC 00:56
PROVIDERS: Internal Medicine Rheumatology
DX: L40.50 Arthropathic psoriasis, unspecified (principal); I25.10 Atherosclerotic heart disease of native coronary artery without angina pectoris; Z86.73 Personal history of transient ischemic attack (TIA), and cerebral infarction without residual deficits; Z88.2 Allergy status to sulfonamides; Z88.1 Allergy status to other antibiotic agents; Z88.5 Allergy status to narcotic agent; Z88.8 Allergy status to other drugs, medicaments and biological substances; Z79.01 Long term (current) use of anticoagulants; Z79.899 Other long term (current) drug therapy
CPT/HCPCS: 80053; 85025; 85651; 86140; 96413; 96415; J1642; J7050; Q5104

== ENCOUNTER 2024-04-30 02:44 | Day surgery (SDC) | payer MEDICARE, OTHER ==
[2024-04-30] MEDS ORDERED: NS IV SCH (06:00)
[2024-04-30] MEDS ORDERED: INFLIXIMAB ABDA IV SCH (06:00)
[2024-04-30 13:34] VITALS: BP 144/77
[2024-04-30 14:41] LABS: LDL/HDL RATIO 1.1
[2024-04-30 14:42] LABS: Alanine Aminotransfer (ALT/SGP 25 U/L (12-78); Albumin, Blood 3.5 g/dL (3.4-5.0); Albumin/Globulin Ratio 0.9 (0.8-1.8); Alk Phos 97 U/L (50-136); Anion Gap 13 mmol/L (3-11); Aspartate Aminotrans (AST/SGOT 20 U/L (12-37); Bilirubin, Total 0.3 mg/dL (0.1-1.0); Blood Urea Nitrogen 18 mg/dL (8-24); CHOL/HDL RATIO 2.6; CO2, Blood 26 mmol/L (21-32); Chloride, Blood 105 mmol/L (98-108); Cholesterol 204 mg/dL (50-200); Globulin, Blood 3.8 g/dL (2.2-4.0); Glomerular Filtration Rate 52 (60-); Glucose, Blood 124 mg/dL (70-99); HDL Cholesterol 77 mg/dL (>39); Low Density Lipoprotein Chol 85 mg/dL (0-110); Potassium, Blood 3.7 mmol/L (3.5-5.5); Sodium, Blood 140 mmol/L (136-145); Total Protein, Blood 7.3 g/dL (6.4-8.2); Triglycerides 209 mg/dL (30-160); Very Low Density Lipoprot Chol 41 mg/dL (6-32)
--- NOTE | 2024-04-30 15:36 | NUR ---
Lab results from today faxed to Lydia Anderson [facility] office.
== END 2024-04-30 16:35 | disposition home or self-care (01) ==
LOC: ATC 02:44
PROVIDERS: Internal Medicine Rheumatology
DX: L40.50 Arthropathic psoriasis, unspecified (principal); I10 Essential (primary) hypertension; I25.10 Atherosclerotic heart disease of native coronary artery without angina pectoris; Z88.2 Allergy status to sulfonamides; Z79.01 Long term (current) use of anticoagulants; Z79.899 Other long term (current) drug therapy
CPT/HCPCS: 80053; 80061; 96413; 96415; J1642; J7050; Q5104

== ENCOUNTER 2024-05-24 10:47 | Emergency (ER) | payer MEDICARE, OTHER ==
[~2024-05-24] VITALS: Ht 160 cm; Wt 44.6 kg
[2024-05-24 11:05] VITALS: BP 167/85
[2024-05-24 12:11] LABS: BASOPHILS ABSOLUTE AUTO 0.06 K/mm3 (0.00-0.23); BASOPHILS PERCENT AUTO 1 % (0-2); EOSINOPHILS ABSOLUTE AUTO 0.17 K/mm3 (0.00-0.68); EOSINOPHILS PERCENT AUTO 2 % (0-6); Hematocrit 30.2 % (33.0-51.0); Hemoglobin 9.8 g/dL (11.5-16.0); IMMATURE GRAN ABSOLUTE AUTO 0.04 K/mm3 (0.00-0.10); IMMATURE GRAN PERCENT AUTO 1 % (0-1); LYMPHOCYTES ABSOLUTE AUTO 1.67 K/mm3 (0.84-5.20); LYMPHOCYTES PERCENT AUTO 19 % (21-46); MONOCYTES ABSOLUTE AUTO 0.29 K/mm3 (0.16-1.47); MONOCYTES PERCENT AUTO 3 % (4-13); Mean Corpuscular HGB 28.4 pg (26.0-34.0); Mean Corpuscular HGB Conc 32.5 g/dL (31.5-36.5); Mean Corpuscular Volume 88 fL (80-100); NEUTROPHILS ABSOLUTE AUTO 6.39 K/mm3 (1.96-9.15); NEUTROPHILS PERCENT AUTO 74 % (41-73); Platelet Count 210 K/mm3 (150-400); RDW Coefficient Variation 13.9 % (11.7-14.2); RDW Standard Deviation 44.4 fL (35.1-46.3); Red Blood Cell Count 3.45 M/mm3 (3.80-5.20); White Blood Cell Count 8.62 K/mm3 (4.00-11.30)
[2024-05-24 12:26] LABS: Albumin, Blood 2.9 g/dL (3.4-5.0); Albumin/Globulin Ratio 0.9 (0.8-1.8); Bilirubin, Total 0.3 mg/dL (0.1-1.0); Bun/Creatinine Ratio 20.3 (12.0-20.0); Calcium, Blood 7.6 mg/dL (8.5-10.1); Creatinine, Blood 1.18 mg/dL (0.40-1.00); Globulin, Blood 3.3 g/dL (2.2-4.0); Potassium, Blood 3.7 mmol/L (3.5-5.5); Total Protein, Blood 6.2 g/dL (6.4-8.2)
== END 2024-05-24 13:27 | disposition home or self-care (01) ==
LOC: ER 10:47
PROVIDERS: Physician Assistant
DX: M54.9 Dorsalgia, unspecified (principal); R06.02 Shortness of breath; G43.909 Migraine, unspecified, not intractable, without status migrainosus; G21.9 Secondary parkinsonism, unspecified; J44.9 Chronic obstructive pulmonary disease, unspecified; F17.210 Nicotine dependence, cigarettes, uncomplicated; Z86.73 Personal history of transient ischemic attack (TIA), and cerebral infarction without residual deficits; Z79.82 Long term (current) use of aspirin; Z79.52 Long term (current) use of systemic steroids; Z79.899 Other long term (current) drug therapy; Z91.040 Latex allergy status; Z88.5 Allergy status to narcotic agent; Z91.048 Other nonmedicinal substance allergy status; Z88.2 Allergy status to sulfonamides; Z88.1 Allergy status to other antibiotic agents; Z88.8 Allergy status to other drugs, medicaments and biological substances
CPT/HCPCS: 71046; 80053; 83690; 83880; 84484; 85025; 93005; 93010; 99284-25; J1642

== ENCOUNTER 2024-06-11 05:08 | Day surgery (SDC) | payer MEDICARE, OTHER ==
[~2024-06-11] VITALS: Wt 97.5 kg
[~2024-06-11 05:08] MED LIST changes: +INFLIXIMAB ABDA IV SCH; +NS IV SCH
[2024-06-11 13:57] VITALS: BP 140/58
[2024-06-11 15:03] LABS: BASOPHILS ABSOLUTE AUTO 0.08 K/mm3 (0.00-0.23); BASOPHILS PERCENT AUTO 1 % (0-2); EOSINOPHILS ABSOLUTE AUTO 0.59 K/mm3 (0.00-0.68); EOSINOPHILS PERCENT AUTO 6 % (0-6); Hematocrit 30.5 % (33.0-51.0); Hemoglobin 9.7 g/dL (11.5-16.0); IMMATURE GRAN ABSOLUTE AUTO 0.03 K/mm3 (0.00-0.10); IMMATURE GRAN PERCENT AUTO 0 % (0-1); LYMPHOCYTES ABSOLUTE AUTO 3.03 K/mm3 (0.84-5.20); LYMPHOCYTES PERCENT AUTO 31 % (21-46); MONOCYTES ABSOLUTE AUTO 0.61 K/mm3 (0.16-1.47); MONOCYTES PERCENT AUTO 6 % (4-13); Mean Corpuscular HGB Conc 31.8 g/dL (31.5-36.5); Mean Corpuscular Volume 88 fL (80-100); Mean Platelet Volume 10.3 fL (9.1-12.4); NEUTROPHILS ABSOLUTE AUTO 5.39 K/mm3 (1.96-9.15); NEUTROPHILS PERCENT AUTO 55 % (41-73); Platelet Count 256 K/mm3 (150-400); RDW Coefficient Variation 14.4 % (11.7-14.2); RDW Standard Deviation 45.9 fL (35.1-46.3); Red Blood Cell Count 3.46 M/mm3 (3.80-5.20); White Blood Cell Count 9.73 K/mm3 (4.00-11.30)
[2024-06-11 15:32] LABS: Albumin, Blood 3.5 g/dL (3.4-5.0); Bilirubin, Total 0.4 mg/dL (0.1-1.0); Bun/Creatinine Ratio 21.9 (12.0-20.0); Calcium, Blood 8.7 mg/dL (8.5-10.1); Creatinine, Blood 1.28 mg/dL (0.40-1.00); Globulin, Blood 3.4 g/dL (2.2-4.0); Percent Saturation 5.2 % (15.0-50.0); Potassium, Blood 4.3 mmol/L (3.5-5.5); Thyroid Stimulating Hormone 0.668 uIU/mL (0.360-4.800); Total Protein, Blood 6.9 g/dL (6.4-8.2)
[2024-06-13 11:24] LABS: HEPATITIS B SURFACE ANTIBODY <3.10 IU/L
[2024-06-13 13:39] LABS: HEPATITIS C AB CIA INTERP Negative (Negative)
== END 2024-06-11 17:03 | disposition home or self-care (01) ==
LOC: ATC 05:08
PROVIDERS: Internal Medicine Rheumatology
DX: L40.50 Arthropathic psoriasis, unspecified (principal); Z88.8 Allergy status to other drugs, medicaments and biological substances
CPT/HCPCS: 80053; 83540; 83550; 84443; 85025; 86803; 96413; 96415; J1642; J7050; Q5104

== ENCOUNTER 2024-07-23 05:56 | Day surgery (SDC) | payer MEDICARE, OTHER ==
[~2024-07-23 05:56] MED LIST changes: -INFLIXIMAB ABDA IV SCH; -NS IV SCH
[2024-07-23] MEDS ORDERED: NS IV SCH (06:00)
[2024-07-23] MEDS ORDERED: INFLIXIMAB ABDA IV SCH (06:00)
[2024-07-23 13:57] VITALS: BP 136/67
== END 2024-07-23 14:06 | disposition home or self-care (01) ==
LOC: ATC 05:56
DX: L40.50 Arthropathic psoriasis, unspecified (principal); I25.10 Atherosclerotic heart disease of native coronary artery without angina pectoris; Z86.73 Personal history of transient ischemic attack (TIA), and cerebral infarction without residual deficits; Z79.01 Long term (current) use of anticoagulants; Z79.82 Long term (current) use of aspirin; Z79.899 Other long term (current) drug therapy; Z79.52 Long term (current) use of systemic steroids; Z88.2 Allergy status to sulfonamides; Z88.1 Allergy status to other antibiotic agents; Z88.5 Allergy status to narcotic agent; Z88.8 Allergy status to other drugs, medicaments and biological substances
CPT/HCPCS: 96523; J1642

== ENCOUNTER 2024-09-01 11:43 | Day surgery (SDC) | payer MEDICARE, OTHER ==
[2024-09-01] MEDS ORDERED: NS IV SCH (14:10)
[2024-09-01] MEDS ORDERED: INFLIXIMAB ABDA IV SCH (14:10)
[2024-09-01 14:30] VITALS: BP 148/68
== END 2024-09-01 16:50 | disposition home or self-care (01) ==
LOC: ATC 11:43
DX: L40.50 Arthropathic psoriasis, unspecified (principal); Z88.2 Allergy status to sulfonamides; Z88.5 Allergy status to narcotic agent; Z88.1 Allergy status to other antibiotic agents; Z88.8 Allergy status to other drugs, medicaments and biological substances; Z79.899 Other long term (current) drug therapy
CPT/HCPCS: 96413; 96415; J1642; J7050; Q5104

== ENCOUNTER 2024-09-07 07:43 | Day surgery (SDC) | payer MEDICARE, OTHER ==
[2024-09-07 10:35] VITALS: BP 150/74
[2024-09-07 11:01] LABS: BASOPHILS ABSOLUTE AUTO 0.07 K/mm3 (0.00-0.23); BASOPHILS PERCENT AUTO 1 % (0-2); EOSINOPHILS ABSOLUTE AUTO 0.25 K/mm3 (0.00-0.68); EOSINOPHILS PERCENT AUTO 3 % (0-6); Hematocrit 28.5 % (33.0-51.0); Hemoglobin 8.8 g/dL (11.5-16.0); IMMATURE GRAN ABSOLUTE AUTO 0.03 K/mm3 (0.00-0.10); IMMATURE GRAN PERCENT AUTO 0 % (0-1); LYMPHOCYTES ABSOLUTE AUTO 2.13 K/mm3 (0.84-5.20); LYMPHOCYTES PERCENT AUTO 28 % (21-46); MONOCYTES ABSOLUTE AUTO 0.37 K/mm3 (0.16-1.47); MONOCYTES PERCENT AUTO 5 % (4-13); Mean Corpuscular HGB 24.6 pg (26.0-34.0); Mean Corpuscular HGB Conc 30.9 g/dL (31.5-36.5); Mean Corpuscular Volume 80 fL (80-100); Mean Platelet Volume 10.1 fL (9.1-12.4); NEUTROPHILS ABSOLUTE AUTO 4.87 K/mm3 (1.96-9.15); NEUTROPHILS PERCENT AUTO 63 % (41-73); Platelet Count 287 K/mm3 (150-400); RDW Coefficient Variation 15.7 % (11.7-14.2); RDW Standard Deviation 45.4 fL (35.1-46.3); Red Blood Cell Count 3.57 M/mm3 (3.80-5.20); White Blood Cell Count 7.72 K/mm3 (4.00-11.30)
--- NOTE | 2024-09-07 11:20 | NUR ---
AFTER PT LEFT, IT WAS DISCOVERED THAT ONE OF THE LAB TESTS WAS NOT ENTERED INTO [employer] (RAYMUNDO TEST). UNFORTUNATELY, PT LIVES 30 MIN AWAY AND A PINK TOB LAB TUBE WAS NOT DRAWN FOR ANY OTHER ORDERS. WILL HAVE TO RUN AGAIN DURING THE NEXT VISIT.
[2024-09-07 12:10] LABS: Ferritin, Serum 7 ng/mL (8-252); Iron Serum 18 ug/dL (50-170); Percent Saturation 4.2 % (15.0-50.0); Total Iron Binding Capacity 428 ug/dL (250-450)
[2024-09-07 12:13] LABS: Alanine Aminotransfer (ALT/SGP 24 U/L (12-78); Albumin, Blood 3.5 g/dL (3.4-5.0); Albumin/Globulin Ratio 0.9 (0.8-1.8); Alk Phos 88 U/L (50-136); Anion Gap 9 mmol/L (3-11); Aspartate Aminotrans (AST/SGOT 21 U/L (12-37); Bilirubin, Total 0.3 mg/dL (0.1-1.0); Blood Urea Nitrogen 29 mg/dL (8-24); Bun/Creatinine Ratio 25.2 (12.0-20.0); CO2, Blood 29 mmol/L (21-32); Calcium, Blood 9.1 mg/dL (8.5-10.1); Chloride, Blood 104 mmol/L (98-108); Creatinine, Blood 1.15 mg/dL (0.40-1.00); Globulin, Blood 3.8 g/dL (2.2-4.0); Glomerular Filtration Rate 55 (60-); Glucose, Blood 110 mg/dL (70-99); Lactate Dehydrogenase (Ld),Bld 203 U/L (100-240); Potassium, Blood 4.2 mmol/L (3.5-5.5); Sodium, Blood 138 mmol/L (136-145); Total Protein, Blood 7.3 g/dL (6.4-8.2)
[2024-09-08 20:24] LABS: HAPTOGLOBIN 237 mg/dL (30-200)
[2024-09-09 21:57] LABS: ALBUMIN 3.76 g/dL (3.75-5.01); ALPHA 1 GLOBULIN 0.39 g/dL (0.19-0.46); ALPHA 2 GLOBULIN 0.84 g/dL (0.48-1.05); BETA GLOBULIN 1.02 g/dL (0.48-1.10); GAMMA 0.99 g/dL (0.62-1.51); IMMUNOFIXATION IFE Done; IMMUNOGLOBULIN A 276 mg/dL (68-408); IMMUNOGLOBULIN G 955 mg/dL (768-1632); IMMUNOGLOBULIN M 85 mg/dL (35-263); KAPPA QNT FREE LIGHT CHAINS 20.54 mg/L (3.30-19.40); LAMBDA QNT FREE LIGHT CHAINS 11.42 mg/L (5.71-26.30)
== END 2024-09-07 10:49 | disposition home or self-care (01) ==
LOC: ATC 07:43
PROVIDERS: Registered Nurse Oncology
DX: L40.50 Arthropathic psoriasis, unspecified (principal); D64.9 Anemia, unspecified; Z88.2 Allergy status to sulfonamides
CPT/HCPCS: 36591; 80053; 82607; 82728; 82746; 82784; 83010; 83521; 83540; 83550; 83615; 84155; 84165; 85025; 86334; 96523; J1642

== ENCOUNTER 2024-09-26 12:39 | Day surgery (SDC) | payer MEDICARE, OTHER ==
[~2024-09-26 12:39] MED LIST changes: +Sod Ferric Gluc Complx/Sucrose 125 MG in NS 100 ML IV SCH
[2024-09-26 13:05] VITALS: BP 125/65
== END 2024-09-26 14:05 | disposition home or self-care (01) ==
LOC: ATC 12:39
DX: D50.9 Iron deficiency anemia, unspecified (principal); I25.10 Atherosclerotic heart disease of native coronary artery without angina pectoris; I10 Essential (primary) hypertension; G47.33 Obstructive sleep apnea (adult) (pediatric); E78.5 Hyperlipidemia, unspecified; Z88.2 Allergy status to sulfonamides; Z88.8 Allergy status to other drugs, medicaments and biological substances
CPT/HCPCS: 96365; J1642; J2916

== ENCOUNTER 2024-10-03 02:59 | Day surgery (SDC) | payer MEDICARE, OTHER ==
[2024-10-03 11:08] VITALS: BP 132/81
== END 2024-10-03 12:15 | disposition home or self-care (01) ==
LOC: ATC 02:59
DX: D50.9 Iron deficiency anemia, unspecified (principal); L40.50 Arthropathic psoriasis, unspecified; I11.0 Hypertensive heart disease with heart failure; I50.9 Heart failure, unspecified; I25.10 Atherosclerotic heart disease of native coronary artery without angina pectoris; G47.33 Obstructive sleep apnea (adult) (pediatric); Z87.891 Personal history of nicotine dependence; Z88.1 Allergy status to other antibiotic agents; Z88.2 Allergy status to sulfonamides; Z88.8 Allergy status to other drugs, medicaments and biological substances; Z79.01 Long term (current) use of anticoagulants; Z79.899 Other long term (current) drug therapy
CPT/HCPCS: 96365; J1642; J2916

== ENCOUNTER 2024-10-06 00:21 | Day surgery (SDC) | payer MEDICARE, OTHER ==
[~2024-10-06 00:21] MED LIST changes: -Sod Ferric Gluc Complx/Sucrose 125 MG in NS 100 ML IV SCH
[2024-10-06] MEDS ORDERED: Sod Ferric Gluc Complx/Sucrose 125 MG in NS 100 ML IV SCH (01:00)
[2024-10-06 15:04] VITALS: BP 118/85
== END 2024-10-06 16:06 | disposition home or self-care (01) ==
LOC: ATC 00:21
DX: D50.9 Iron deficiency anemia, unspecified (principal); L40.50 Arthropathic psoriasis, unspecified; I25.10 Atherosclerotic heart disease of native coronary artery without angina pectoris; I11.0 Hypertensive heart disease with heart failure; I50.9 Heart failure, unspecified; G47.33 Obstructive sleep apnea (adult) (pediatric); Z87.891 Personal history of nicotine dependence; Z88.1 Allergy status to other antibiotic agents; Z88.2 Allergy status to sulfonamides; Z88.5 Allergy status to narcotic agent; Z88.8 Allergy status to other drugs, medicaments and biological substances; Z79.01 Long term (current) use of anticoagulants; Z79.899 Other long term (current) drug therapy
CPT/HCPCS: 96365; J1642; J2916

== ENCOUNTER 2024-10-09 04:47 | Day surgery (SDC) | payer MEDICARE, OTHER ==
[~2024-10-09 04:47] MED LIST changes: +Sod Ferric Gluc Complx/Sucrose 125 MG in NS 100 ML IV SCH
[2024-10-09 09:57] VITALS: BP 151/67
== END 2024-10-09 11:03 | disposition home or self-care (01) ==
LOC: ATC 04:47
DX: D50.9 Iron deficiency anemia, unspecified (principal); L40.50 Arthropathic psoriasis, unspecified; Z88.5 Allergy status to narcotic agent; Z88.8 Allergy status to other drugs, medicaments and biological substances; I11.0 Hypertensive heart disease with heart failure; I50.9 Heart failure, unspecified; G47.33 Obstructive sleep apnea (adult) (pediatric); E78.5 Hyperlipidemia, unspecified
CPT/HCPCS: 96365; J1642; J2916

== ENCOUNTER 2024-10-22 01:08 | Day surgery (SDC) | payer MEDICARE ==
[~2024-10-22 01:08] MED LIST changes: -Sod Ferric Gluc Complx/Sucrose 125 MG in NS 100 ML IV SCH
[2024-10-22] MEDS ORDERED: Sod Ferric Gluc Complx/Sucrose 125 MG in NS 100 ML IV SCH (06:00)
[2024-10-22 08:45] VITALS: BP 145/68
[2024-10-22 09:45] LABS: BASOPHILS ABSOLUTE AUTO 0.07 K/mm3 (0.00-0.23); BASOPHILS PERCENT AUTO 1 % (0-2); EOSINOPHILS ABSOLUTE AUTO 0.25 K/mm3 (0.00-0.68); EOSINOPHILS PERCENT AUTO 3 % (0-6); Hematocrit 32.4 % (33.0-51.0); Hemoglobin 10.2 g/dL (11.5-16.0); IMMATURE GRAN ABSOLUTE AUTO 0.11 K/mm3 (0.00-0.10); IMMATURE GRAN PERCENT AUTO 1 % (0-1); LYMPHOCYTES ABSOLUTE AUTO 2.32 K/mm3 (0.84-5.20); LYMPHOCYTES PERCENT AUTO 24 % (21-46); MONOCYTES ABSOLUTE AUTO 0.51 K/mm3 (0.16-1.47); MONOCYTES PERCENT AUTO 5 % (4-13); Mean Corpuscular HGB 25.7 pg (26.0-34.0); Mean Corpuscular HGB Conc 31.5 g/dL (31.5-36.5); Mean Corpuscular Volume 82 fL (80-100); NEUTROPHILS ABSOLUTE AUTO 6.32 K/mm3 (1.96-9.15); NEUTROPHILS PERCENT AUTO 66 % (41-73); Platelet Count 296 K/mm3 (150-400); RDW Coefficient Variation 20.6 % (11.7-14.2); RDW Standard Deviation 60.6 fL (35.1-46.3); Red Blood Cell Count 3.97 M/mm3 (3.80-5.20); White Blood Cell Count 9.58 K/mm3 (4.00-11.30)
[2024-10-22 09:54] LABS: Albumin, Blood 3.3 g/dL (3.4-5.0); Albumin/Globulin Ratio 0.9 (0.8-1.8); Bilirubin, Total 0.2 mg/dL (0.1-1.0); Bun/Creatinine Ratio 13.5 (12.0-20.0); Calcium, Blood 8.9 mg/dL (8.5-10.1); Creatinine, Blood 1.33 mg/dL (0.40-1.00); Globulin, Blood 3.8 g/dL (2.2-4.0); Potassium, Blood 3.5 mmol/L (3.5-5.5); Total Protein, Blood 7.1 g/dL (6.4-8.2)
--- NOTE | 2024-10-22 11:24 | NUR ---
Lab results from today faxed to Dr. Bustillos's office.
== END 2024-10-22 11:10 | disposition home or self-care (01) ==
LOC: ATC 01:08
PROVIDERS: Internal Medicine Rheumatology
DX: L40.50 Arthropathic psoriasis, unspecified (principal); D64.9 Anemia, unspecified; I11.0 Hypertensive heart disease with heart failure; I50.9 Heart failure, unspecified; E78.5 Hyperlipidemia, unspecified; I25.10 Atherosclerotic heart disease of native coronary artery without angina pectoris; Z87.891 Personal history of nicotine dependence; Z88.5 Allergy status to narcotic agent
CPT/HCPCS: 80053; 85025; 96365; J1642; J2916

== ENCOUNTER 2024-10-23 03:46 | Day surgery (SDC) | payer MEDICARE ==
[~2024-10-23] VITALS: Wt 97.3 kg
[2024-10-23 08:45] VITALS: BP 142/65
== END 2024-10-23 11:30 | disposition home or self-care (01) ==
LOC: ATC 03:46
DX: L40.50 Arthropathic psoriasis, unspecified (principal); D50.9 Iron deficiency anemia, unspecified; I11.0 Hypertensive heart disease with heart failure; I50.9 Heart failure, unspecified; I25.10 Atherosclerotic heart disease of native coronary artery without angina pectoris; E78.5 Hyperlipidemia, unspecified; G47.33 Obstructive sleep apnea (adult) (pediatric); F17.210 Nicotine dependence, cigarettes, uncomplicated; Z88.1 Allergy status to other antibiotic agents; Z88.2 Allergy status to sulfonamides; Z88.8 Allergy status to other drugs, medicaments and biological substances; Z79.01 Long term (current) use of anticoagulants; Z79.899 Other long term (current) drug therapy
CPT/HCPCS: 96413; 96415; J1642; J7050; Q5104

== ENCOUNTER 2024-10-29 04:02 | Day surgery (SDC) | payer MEDICARE, OTHER ==
[~2024-10-29 04:02] MED LIST changes: +Sod Ferric Gluc Complx/Sucrose 125 MG in NS 100 ML IV SCH
[2024-10-29 10:19] VITALS: BP 126/60
== END 2024-10-29 11:28 | disposition home or self-care (01) ==
LOC: ATC 04:02
DX: D64.9 Anemia, unspecified (principal); M19.011 Primary osteoarthritis, right shoulder; I25.10 Atherosclerotic heart disease of native coronary artery without angina pectoris; E78.5 Hyperlipidemia, unspecified; G47.33 Obstructive sleep apnea (adult) (pediatric); I11.0 Hypertensive heart disease with heart failure; I50.9 Heart failure, unspecified; Z72.0 Tobacco use; Z88.8 Allergy status to other drugs, medicaments and biological substances
CPT/HCPCS: 96365; J1642; J2916

== ENCOUNTER 2024-11-04 01:44 | Day surgery (SDC) | payer MEDICARE ==
[2024-11-04 09:02] VITALS: BP 147/68
== END 2024-11-04 10:02 | disposition home or self-care (01) ==
LOC: ATC 01:44
DX: D50.9 Iron deficiency anemia, unspecified (principal); I11.0 Hypertensive heart disease with heart failure; I50.9 Heart failure, unspecified; E78.5 Hyperlipidemia, unspecified; G47.33 Obstructive sleep apnea (adult) (pediatric); I25.10 Atherosclerotic heart disease of native coronary artery without angina pectoris; Z87.891 Personal history of nicotine dependence; Z88.1 Allergy status to other antibiotic agents; Z88.2 Allergy status to sulfonamides; Z79.01 Long term (current) use of anticoagulants; Z79.899 Other long term (current) drug therapy
CPT/HCPCS: 96365; J1642; J2916

== ENCOUNTER 2024-11-07 02:24 | Day surgery (SDC) | payer MEDICARE ==
[2024-11-07 10:24] VITALS: BP 124/67
== END 2024-11-07 11:24 | disposition home or self-care (01) ==
LOC: ATC 02:24
DX: D64.9 Anemia, unspecified (principal); L40.50 Arthropathic psoriasis, unspecified; G47.33 Obstructive sleep apnea (adult) (pediatric); I50.9 Heart failure, unspecified; I25.10 Atherosclerotic heart disease of native coronary artery without angina pectoris; I11.0 Hypertensive heart disease with heart failure; Z87.891 Personal history of nicotine dependence; Z88.8 Allergy status to other drugs, medicaments and biological substances; Z88.2 Allergy status to sulfonamides
CPT/HCPCS: 96365; J1642; J2916

== ENCOUNTER 2024-12-07 05:10 | Day surgery (SDC) | payer MEDICARE ==
[~2024-12-07 05:10] MED LIST changes: -Sod Ferric Gluc Complx/Sucrose 125 MG in NS 100 ML IV SCH
[2024-12-07 14:08] VITALS: BP 130/79
[2024-12-07] MEDS ORDERED: INFLIXIMAB ABDA IV SCH (14:45)
[2024-12-07] MEDS ORDERED: NS IV SCH (14:45)
[2024-12-07 15:38] LABS: BASOPHILS ABSOLUTE AUTO 0.06 K/mm3 (0.00-0.23); BASOPHILS PERCENT AUTO 1 % (0-2); EOSINOPHILS ABSOLUTE AUTO 0.15 K/mm3 (0.00-0.68); EOSINOPHILS PERCENT AUTO 2 % (0-6); Hematocrit 38.6 % (33.0-51.0); Hemoglobin 12.6 g/dL (11.5-16.0); IMMATURE GRAN ABSOLUTE AUTO 0.02 K/mm3 (0.00-0.10); IMMATURE GRAN PERCENT AUTO 0 % (0-1); LYMPHOCYTES ABSOLUTE AUTO 2.51 K/mm3 (0.84-5.20); LYMPHOCYTES PERCENT AUTO 32 % (21-46); MONOCYTES ABSOLUTE AUTO 0.39 K/mm3 (0.16-1.47); MONOCYTES PERCENT AUTO 5 % (4-13); Mean Corpuscular HGB 28.6 pg (26.0-34.0); Mean Corpuscular HGB Conc 32.6 g/dL (31.5-36.5); Mean Corpuscular Volume 88 fL (80-100); Mean Platelet Volume 10.6 fL (9.1-12.4); NEUTROPHILS ABSOLUTE AUTO 4.82 K/mm3 (1.96-9.15); NEUTROPHILS PERCENT AUTO 61 % (41-73); Platelet Count 188 K/mm3 (150-400); RDW Coefficient Variation 19.1 % (11.7-14.2); RDW Standard Deviation 61.2 fL (35.1-46.3); White Blood Cell Count 7.95 K/mm3 (4.00-11.30)
[2024-12-07 16:09] LABS: Percent Saturation 14.2 % (15.0-50.0)
[2024-12-07 16:11] LABS: Albumin, Blood 3.7 g/dL (3.4-5.0); Albumin/Globulin Ratio 1.1 (0.8-1.8); Bilirubin, Total 0.5 mg/dL (0.1-1.0); Bun/Creatinine Ratio 14.6 (12.0-20.0); Calcium, Blood 9.2 mg/dL (8.5-10.1); Creatinine, Blood 1.3 mg/dL (0.40-1.00); Globulin, Blood 3.3 g/dL (2.2-4.0); Potassium, Blood 3.5 mmol/L (3.5-5.5)
[2024-12-08 18:08] LABS: HEPATITIS B SURFACE ANTIGEN Negative (Negative)
[2024-12-09 17:10] LABS: HEPATITIS C AB CIA INTERP Negative (Negative); HEPATITIS C ANTIBODY CIA INDEX 0.06 IV
[2024-12-10 03:33] LABS: QUANTIFERON MITOGEN MINUS NIL 9.97 IU/mL; QUANTIFERON NIL 0.03 IU/mL; QUANTIFERON PLUS TB1 MINUS NIL 0.02 IU/mL (<=0.34); QUANTIFERON PLUS TB2 MINUS NIL 0.01 IU/mL (<=0.34)
== END 2024-12-07 17:30 | disposition home or self-care (01) ==
LOC: ATC 05:10
PROVIDERS: Internal Medicine Rheumatology; Registered Nurse Oncology
DX: D50.9 Iron deficiency anemia, unspecified (principal); L40.50 Arthropathic psoriasis, unspecified; I11.0 Hypertensive heart disease with heart failure; I50.9 Heart failure, unspecified; I25.10 Atherosclerotic heart disease of native coronary artery without angina pectoris; J45.909 Unspecified asthma, uncomplicated; Z79.01 Long term (current) use of anticoagulants; Z87.891 Personal history of nicotine dependence; Z88.1 Allergy status to other antibiotic agents; Z88.2 Allergy status to sulfonamides; Z88.8 Allergy status to other drugs, medicaments and biological substances
CPT/HCPCS: 80053; 82728; 83540; 83550; 85025; 86480; 86803; 87340; 96413; 96415; J1642; J7050; Q5104

== ENCOUNTER 2025-03-03 10:37 | Day surgery (SDC) | payer MEDICARE ==
[~2025-03-03] VITALS: Ht 160 cm; Wt 219.4 kg
[2025-03-03 13:17] VITALS: BP 138/65
== END 2025-03-03 13:26 | disposition home or self-care (01) ==
LOC: ORSCSDS 10:37
PROVIDERS: Internal Medicine Gastroenterology
PROC: 0DJD8ZZ Inspection of Lower Intestinal Tract, Via Natural or Artificial Opening Endoscopic (ICD-10-PCS; principal; 2025-03-03 12:45)
PROC: 0DJ08ZZ Inspection of Upper Intestinal Tract, Via Natural or Artificial Opening Endoscopic (ICD-10-PCS; principal; 2025-03-03 12:45)
DX: D50.9 Iron deficiency anemia, unspecified (principal); Z86.0101 Personal history of adenomatous and serrated colon polyps; Z86.73 Personal history of transient ischemic attack (TIA), and cerebral infarction without residual deficits; K57.30 Diverticulosis of large intestine without perforation or abscess without bleeding; G47.33 Obstructive sleep apnea (adult) (pediatric); M06.9 Rheumatoid arthritis, unspecified; E78.5 Hyperlipidemia, unspecified; I10 Essential (primary) hypertension; I25.10 Atherosclerotic heart disease of native coronary artery without angina pectoris; E66.9 Obesity, unspecified; Z68.38 Body mass index [BMI] 38.0-38.9, adult; Z87.891 Personal history of nicotine dependence; Z79.01 Long term (current) use of anticoagulants; Z79.82 Long term (current) use of aspirin; Z79.899 Other long term (current) drug therapy
CPT/HCPCS: J2704; J7120

== ENCOUNTER 2025-03-04 04:23 | Day surgery (SDC) | payer MEDICARE ==
[2025-03-04 13:47] VITALS: BP 149/86
[2025-03-04] MEDS ORDERED: NS IV SCH (14:00)
[2025-03-04] MEDS ORDERED: INFLIXIMAB ABDA IV SCH (14:00)
[2025-03-04 14:41] LABS: BASOPHILS ABSOLUTE AUTO 0.06 K/mm3 (0.00-0.23); BASOPHILS PERCENT AUTO 1 % (0-2); EOSINOPHILS ABSOLUTE AUTO 0.47 K/mm3 (0.00-0.68); EOSINOPHILS PERCENT AUTO 6 % (0-6); Hematocrit 34.9 % (33.0-51.0); Hemoglobin 11.3 g/dL (11.5-16.0); IMMATURE GRAN ABSOLUTE AUTO 0.03 K/mm3 (0.00-0.10); IMMATURE GRAN PERCENT AUTO 0 % (0-1); LYMPHOCYTES ABSOLUTE AUTO 2.75 K/mm3 (0.84-5.20); LYMPHOCYTES PERCENT AUTO 34 % (21-46); MONOCYTES ABSOLUTE AUTO 0.57 K/mm3 (0.16-1.47); MONOCYTES PERCENT AUTO 7 % (4-13); Mean Corpuscular HGB Conc 32.4 g/dL (31.5-36.5); Mean Corpuscular Volume 94 fL (80-100); NEUTROPHILS ABSOLUTE AUTO 4.17 K/mm3 (1.96-9.15); NEUTROPHILS PERCENT AUTO 52 % (41-73); NRBC ABSOLUTE 0.00 K/mm3 (0.00-0.02); NRBC Auto 0.0 /100 WBC (0.0-0.2); Platelet Count 238 K/mm3 (150-400); RDW Coefficient Variation 15.6 % (11.7-14.2); RDW Standard Deviation 53.0 fL (35.1-46.3)
[2025-03-04 14:56] LABS: Alanine Aminotransfer (ALT/SGP 25.0 U/L (12-78); Albumin, Blood 3.3 g/dL (3.4-5.0); Albumin/Globulin Ratio 0.9 (0.8-1.8); Anion Gap 7.0 mmol/L (3-11); Aspartate Aminotrans (AST/SGOT 18.0 U/L (12-37); Bilirubin, Total 0.4 mg/dL (0.1-1.0); Blood Urea Nitrogen 13.0 mg/dL (8-24); CO2, Blood 29.0 mmol/L (21-32); Calcium, Blood 8.1 mg/dL (8.5-10.1); Chloride, Blood 105.0 mmol/L (98-108); Creatinine, Blood 1.14 mg/dL (0.40-1.00); Ferritin, Serum 22.0 ng/mL (8-252); Globulin, Blood 3.5 g/dL (2.2-4.0); Glucose, Blood 88.0 mg/dL (70-99); Potassium, Blood 4.0 mmol/L (3.5-5.5); Sodium, Blood 137.0 mmol/L (136-145); Total Iron Binding Capacity 343.0 ug/dL (250-450); Total Protein, Blood 6.8 g/dL (6.4-8.2)
== END 2025-03-04 16:45 | disposition home or self-care (01) ==
LOC: ATC 04:23
PROVIDERS: Internal Medicine Rheumatology
DX: L40.50 Arthropathic psoriasis, unspecified (principal); D50.9 Iron deficiency anemia, unspecified; I11.0 Hypertensive heart disease with heart failure; I50.9 Heart failure, unspecified; I25.10 Atherosclerotic heart disease of native coronary artery without angina pectoris; E78.5 Hyperlipidemia, unspecified; G47.33 Obstructive sleep apnea (adult) (pediatric); J45.909 Unspecified asthma, uncomplicated; I69.30 Unspecified sequelae of cerebral infarction; Z87.891 Personal history of nicotine dependence; Z79.01 Long term (current) use of anticoagulants; Z79.620 Long term (current) use of immunosuppressive biologic; Z79.631 Long term (current) use of antimetabolite agent; Z79.899 Other long term (current) drug therapy; Z88.1 Allergy status to other antibiotic agents; Z88.2 Allergy status to sulfonamides
CPT/HCPCS: 80053; 82728; 83540; 83550; 85025; 96413; 96415; J1642; J7050; Q5104

== ENCOUNTER 2025-04-12 01:43 | Day surgery (SDC) | payer MEDICARE ==
[2025-04-12] MEDS ORDERED: Sod Ferric Gluc Complx/Sucrose 125 MG in NS 100 ML IV SCH (06:00)
[2025-04-12 13:40] VITALS: BP 176/70
== END 2025-04-12 14:47 | disposition home or self-care (01) ==
LOC: ATC 01:43
DX: D50.9 Iron deficiency anemia, unspecified (principal); I25.10 Atherosclerotic heart disease of native coronary artery without angina pectoris; I11.0 Hypertensive heart disease with heart failure; I50.9 Heart failure, unspecified; M06.9 Rheumatoid arthritis, unspecified; L40.50 Arthropathic psoriasis, unspecified; E78.5 Hyperlipidemia, unspecified; Z95.5 Presence of coronary angioplasty implant and graft; Z87.891 Personal history of nicotine dependence; Z79.899 Other long term (current) drug therapy; Z88.1 Allergy status to other antibiotic agents; Z88.8 Allergy status to other drugs, medicaments and biological substances; Z90.49 Acquired absence of other specified parts of digestive tract
CPT/HCPCS: 96365; J1642; J2916

== ENCOUNTER 2025-04-14 02:54 | Day surgery (SDC) | payer MEDICARE ==
[~2025-04-14 02:54] MED LIST changes: +Sod Ferric Gluc Complx/Sucrose 125 MG in NS 100 ML IV SCH
[2025-04-14 10:13] VITALS: BP 137/63
== END 2025-04-14 11:28 ==
LOC: ATC 02:54
DX: D50.9 Iron deficiency anemia, unspecified (principal); I11.0 Hypertensive heart disease with heart failure; I50.9 Heart failure, unspecified; I25.10 Atherosclerotic heart disease of native coronary artery without angina pectoris; G47.33 Obstructive sleep apnea (adult) (pediatric); J45.909 Unspecified asthma, uncomplicated; Z79.01 Long term (current) use of anticoagulants; Z79.899 Other long term (current) drug therapy; Z87.891 Personal history of nicotine dependence; Z88.1 Allergy status to other antibiotic agents; Z88.2 Allergy status to sulfonamides; Z88.8 Allergy status to other drugs, medicaments and biological substances
CPT/HCPCS: 96365; J1642; J2916

== ENCOUNTER 2025-04-29 02:03 | Day surgery (SDC) | payer MEDICARE ==
[~2025-04-29] VITALS: Wt 99.0 kg
[~2025-04-29 02:03] MED LIST changes: -Sod Ferric Gluc Complx/Sucrose 125 MG in NS 100 ML IV SCH
[2025-04-29] MEDS ORDERED: NS IV SCH (06:00)
[2025-04-29] MEDS ORDERED: INFLIXIMAB ABDA IV SCH (06:00)
[2025-04-29 13:55] VITALS: BP 110/84
[2025-04-29 15:07] LABS: CHOL/HDL RATIO 2.6; Cholesterol 195 mg/dL (50-200); HDL Cholesterol 75 mg/dL (>39); LDL/HDL RATIO 1.1; Low Density Lipoprotein Chol 80 mg/dL (0-110); Triglycerides 199 mg/dL (30-160); Very Low Density Lipoprot Chol 39 mg/dL (6-32)
[2025-04-30 19:55] LABS: APOLIPOPROTEIN B 87 mg/dL (60-117)
[2025-04-30 20:19] LABS: LIPOPROTEIN (A) 195 mg/dL (<=29)
== END 2025-04-29 16:58 | disposition home or self-care (01) ==
LOC: ATC 02:03
PROVIDERS: Internal Medicine
DX: L40.50 Arthropathic psoriasis, unspecified (principal); D64.9 Anemia, unspecified; M06.9 Rheumatoid arthritis, unspecified; I11.0 Hypertensive heart disease with heart failure; I50.9 Heart failure, unspecified; I25.10 Atherosclerotic heart disease of native coronary artery without angina pectoris; G47.33 Obstructive sleep apnea (adult) (pediatric); M79.7 Fibromyalgia; Z87.891 Personal history of nicotine dependence; Z79.899 Other long term (current) drug therapy; Z88.1 Allergy status to other antibiotic agents; Z88.2 Allergy status to sulfonamides; Z88.5 Allergy status to narcotic agent; Z90.49 Acquired absence of other specified parts of digestive tract; Z95.5 Presence of coronary angioplasty implant and graft
CPT/HCPCS: 36591; 80061; 82172; 83695; 96413; 96415; J1642; J7050; Q5104

== ENCOUNTER 2025-05-19 00:51 | Day surgery (SDC) | payer MEDICARE ==
[2025-05-19] MEDS ORDERED: Sod Ferric Gluc Complx/Sucrose 125 MG in NS 100 ML IV SCH (01:00)
[2025-05-19] MEDS ORDERED: WEGOVY0.25 MG/0. SC (09:46)
[2025-05-19 09:47] VITALS: BP 124/77
[2025-05-19] MEDS ORDERED: Crestor40 MG PO (09:47)
== END 2025-05-19 10:56 | disposition home or self-care (01) ==
LOC: ATC 00:51
DX: D50.9 Iron deficiency anemia, unspecified (principal); I25.10 Atherosclerotic heart disease of native coronary artery without angina pectoris; E78.5 Hyperlipidemia, unspecified; I11.0 Hypertensive heart disease with heart failure; I50.9 Heart failure, unspecified; Z87.891 Personal history of nicotine dependence; Z88.8 Allergy status to other drugs, medicaments and biological substances; Z88.2 Allergy status to sulfonamides
CPT/HCPCS: 96365; J1642; J2916

== ENCOUNTER 2025-06-02 00:21 | Day surgery (SDC) | payer MEDICARE ==
[~2025-06-02 00:21] MED LIST changes: +Crestor40 MG PO; +WEGOVY0.25 MG/0. SC
[2025-06-02] MEDS ORDERED: Sod Ferric Gluc Complx/Sucrose 125 MG in NS 100 ML IV SCH (01:00)
[2025-06-02 10:05] VITALS: BP 143/76
== END 2025-06-02 11:17 | disposition home or self-care (01) ==
LOC: ATC 00:21
DX: D50.9 Iron deficiency anemia, unspecified (principal); L40.50 Arthropathic psoriasis, unspecified; G47.33 Obstructive sleep apnea (adult) (pediatric); I25.10 Atherosclerotic heart disease of native coronary artery without angina pectoris; I11.0 Hypertensive heart disease with heart failure; I50.9 Heart failure, unspecified; E78.5 Hyperlipidemia, unspecified; M06.9 Rheumatoid arthritis, unspecified; Z95.5 Presence of coronary angioplasty implant and graft; Z87.891 Personal history of nicotine dependence; Z88.2 Allergy status to sulfonamides; Z88.1 Allergy status to other antibiotic agents; Z88.8 Allergy status to other drugs, medicaments and biological substances; Z79.899 Other long term (current) drug therapy; Z90.49 Acquired absence of other specified parts of digestive tract
CPT/HCPCS: 96365; J1642; J2916

== ENCOUNTER 2025-06-10 02:06 | Day surgery (SDC) | payer MEDICARE ==
[2025-06-10] MEDS ORDERED: Sod Ferric Gluc Complx/Sucrose 125 MG in NS 100 ML IV SCH (06:00)
[2025-06-10 10:30] VITALS: BP 115/77
== END 2025-06-10 11:35 | disposition home or self-care (01) ==
LOC: ATC 02:06
DX: D50.9 Iron deficiency anemia, unspecified (principal); I25.10 Atherosclerotic heart disease of native coronary artery without angina pectoris; I11.0 Hypertensive heart disease with heart failure; I50.9 Heart failure, unspecified; M79.7 Fibromyalgia; L40.50 Arthropathic psoriasis, unspecified; E78.5 Hyperlipidemia, unspecified; M06.9 Rheumatoid arthritis, unspecified; G47.33 Obstructive sleep apnea (adult) (pediatric); Z90.49 Acquired absence of other specified parts of digestive tract; Z95.5 Presence of coronary angioplasty implant and graft; Z87.891 Personal history of nicotine dependence; Z86.73 Personal history of transient ischemic attack (TIA), and cerebral infarction without residual deficits
CPT/HCPCS: 96365; J1642; J2916

== ENCOUNTER 2025-06-11 00:47 | Day surgery (SDC) | payer MEDICARE ==
[2025-06-11 13:42] VITALS: BP 124/65
[2025-06-11] MEDS ORDERED: INFLIXIMAB ABDA IV SCH (14:05)
[2025-06-11] MEDS ORDERED: NS IV SCH (14:05)
[2025-06-11 15:49] LABS: BASOPHILS ABSOLUTE AUTO 0.05 K/mm3 (0.00-0.23); BASOPHILS PERCENT AUTO 1 % (0-2); EOSINOPHILS ABSOLUTE AUTO 0.38 K/mm3 (0.00-0.68); EOSINOPHILS PERCENT AUTO 4 % (0-6); Hematocrit 38.9 % (33.0-51.0); Hemoglobin 12.6 g/dL (11.5-16.0); IMMATURE GRAN ABSOLUTE AUTO 0.04 K/mm3 (0.00-0.10); IMMATURE GRAN PERCENT AUTO 0 % (0-1); LYMPHOCYTES ABSOLUTE AUTO 3.53 K/mm3 (0.84-5.20); LYMPHOCYTES PERCENT AUTO 33 % (21-46); MONOCYTES ABSOLUTE AUTO 0.62 K/mm3 (0.16-1.47); MONOCYTES PERCENT AUTO 6 % (4-13); Mean Corpuscular HGB Conc 32.4 g/dL (31.5-36.5); Mean Corpuscular Volume 92 fL (80-100); NEUTROPHILS ABSOLUTE AUTO 6.25 K/mm3 (1.96-9.15); NEUTROPHILS PERCENT AUTO 57 % (41-73); NRBC ABSOLUTE 0.00 K/mm3 (0.00-0.02); NRBC Auto 0.0 /100 WBC (0.0-0.2); Platelet Count 184 K/mm3 (150-400); RDW Coefficient Variation 14.1 % (11.7-14.2); RDW Standard Deviation 47.3 fL (35.1-46.3)
[2025-06-11 16:27] LABS: Alanine Aminotransfer (ALT/SGP 26.0 U/L (12-78); Albumin, Blood 3.7 g/dL (3.4-5.0); Albumin/Globulin Ratio 1.2 (0.8-1.8); Anion Gap 7.0 mmol/L (3-11); Aspartate Aminotrans (AST/SGOT 22.0 U/L (12-37); Bilirubin, Total 0.4 mg/dL (0.1-1.0); Blood Urea Nitrogen 26.0 mg/dL (8-24); CO2, Blood 32.0 mmol/L (21-32); Calcium, Blood 9.1 mg/dL (8.5-10.1); Chloride, Blood 102.0 mmol/L (98-108); Creatinine, Blood 1.11 mg/dL (0.40-1.00); Globulin, Blood 3.2 g/dL (2.2-4.0); Glucose, Blood 111.0 mg/dL (70-99); Potassium, Blood 3.6 mmol/L (3.5-5.5); Sodium, Blood 137.0 mmol/L (136-145); Total Protein, Blood 6.9 g/dL (6.4-8.2)
[2025-06-14 10:32] LABS: HEPATITIS C AB CIA INTERP Negative (Negative); HEPATITIS C ANTIBODY CIA INDEX <0.02 IV
[2025-06-14 19:25] LABS: QUANTIFERON MITOGEN MINUS NIL 9.96 IU/mL; QUANTIFERON NIL 0.04 IU/mL; QUANTIFERON PLUS TB1 MINUS NIL 0.06 IU/mL (<=0.34); QUANTIFERON PLUS TB2 MINUS NIL 0.04 IU/mL (<=0.34)
== END 2025-06-11 16:55 | disposition home or self-care (01) ==
LOC: ATC 00:47
PROVIDERS: Internal Medicine Rheumatology
DX: D50.9 Iron deficiency anemia, unspecified (principal); I11.0 Hypertensive heart disease with heart failure; I50.9 Heart failure, unspecified; J45.909 Unspecified asthma, uncomplicated; I25.10 Atherosclerotic heart disease of native coronary artery without angina pectoris; E78.5 Hyperlipidemia, unspecified; Z87.891 Personal history of nicotine dependence; Z79.899 Other long term (current) drug therapy; Z79.01 Long term (current) use of anticoagulants
CPT/HCPCS: 36591; 80053; 85025; 86480; 86803; 87340; 96413; 96415; J1642; J7050; Q5104

== ENCOUNTER 2025-07-26 11:06 | Day surgery (SDC) | payer MEDICARE ==
[2025-07-26 14:04] VITALS: BP 113/59
[2025-07-26] MEDS ORDERED: INFLIXIMAB ABDA IV SCH (14:05)
[2025-07-26] MEDS ORDERED: NS IV SCH (14:05)
== END 2025-07-26 17:03 | disposition home or self-care (01) ==
LOC: ATC 11:06
DX: L40.50 Arthropathic psoriasis, unspecified (principal); I25.10 Atherosclerotic heart disease of native coronary artery without angina pectoris; E78.5 Hyperlipidemia, unspecified; I11.0 Hypertensive heart disease with heart failure; I50.9 Heart failure, unspecified; I65.23 Occlusion and stenosis of bilateral carotid arteries; M47.812 Spondylosis without myelopathy or radiculopathy, cervical region; I70.8 Atherosclerosis of other arteries; Z88.5 Allergy status to narcotic agent; Z88.8 Allergy status to other drugs, medicaments and biological substances; Z87.891 Personal history of nicotine dependence
CPT/HCPCS: 70498; 96413; 96415; 96523; J1642; J7050; Q5104; Q9967